=== PATIENT | male | born 1940 | race Caucasian/White ===

== ENCOUNTER → 2016-11-14 | Outpatient (REF) | payer MEDICARE ==
[~2016-11-14] MED LIST: AUGM875T27 PO; AZIT500T2 PO; DIGO0.12 PO; GLYB/METFORM PO; HUMA100I5 SC; LEVEINJ SC; LISI-538 PO; METO-207 PO; SIMV10TA2 PO; WARF-23 PO; ZOMETA IV
[2016-11-14 18:44] LABS: INR 4.21
== END ==
LOC: M LABDRAWC 17:20
PROVIDERS: ATTEND Internal Medicine Cardiovascular Disease
DX: Z51.81 Encounter for therapeutic drug level monitoring (principal); Z79.01 Long term (current) use of anticoagulants

== ENCOUNTER → 2016-11-28 | Outpatient (REF) | payer MEDICARE ==
[2016-11-28 17:23] LABS: INR 3.85
== END ==
LOC: M LABDRAWC 16:32
PROVIDERS: ATTEND Internal Medicine Cardiovascular Disease
DX: Z51.81 Encounter for therapeutic drug level monitoring (principal); Z79.01 Long term (current) use of anticoagulants; I48.2 Chronic atrial fibrillation

== ENCOUNTER → 2016-12-13 | Outpatient (REF) | payer MEDICARE ==
[2016-12-13 19:14] LABS: INR 2.33
== END ==
LOC: M LABDRAWC 16:31
PROVIDERS: ATTEND Internal Medicine Cardiovascular Disease
DX: I48.2 Chronic atrial fibrillation (principal)

== ENCOUNTER → 2017-01-06 | Outpatient (REF) | payer MEDICARE ==
[2017-01-06 17:53] LABS: BASO % 0.4 % (0.0-1.0); EOS # 0.2 K/mm3 (0.0-0.50); EOS % 4.7 % (0.0-3.0); LARGE UNSTAINED CELL # 0.1 K/mm3 (0.0-0.4); LARGE UNSTAINED CELL % 1.9 % (0.0-4.0); LYMPH # 0.5 K/mm3 (1.5-4.5); MEAN CORPUSCULAR HEMOGLOBIN 27.5 pg (27.0-33.0); MEAN CORPUSCULAR HGB CONC 30.3 g/dl (32.0-36.5); MEAN CORPUSCULAR VOLUME 90.9 fl (80.0-96.0); MONO # 0.3 K/mm3 (0.0-0.8); MONO % 7.7 % (0.0-5.0); NEUTROPHILS % 73.3 % (36.0-66.0); PLATELET COUNT, AUTOMATED 138 k/mm3 (150-450); RED CELL DISTRIBUTION WIDTH 16.2 % (11.5-14.5); WHITE BLOOD COUNT 4.1 K/mm3 (4.0-10.0)
[2017-01-06 18:04] LABS: ALBUMIN 3.5 GM/DL (3.2-5.2); ALBUMIN/GLOBULIN RATIO 0.95 (1.00-1.93); ALKALINE PHOSPHATASE 140 U/L (45-117); ALT/SGPT 18 U/L (12-78); ANION GAP 6 MEQ/L (8-16); AST/SGOT 19 U/L (15-37); BLOOD UREA NITROGEN 29 MG/DL (7-18); CARBON DIOXIDE LEVEL 28 MEQ/L (21-32); CHLORIDE LEVEL 108 MEQ/L (98-107); CREATININE FOR GFR 1.39 MG/DL (0.70-1.30); GLOMERULAR FILTRATION RATE 52.7 (>42); GLUCOSE, FASTING 212 MG/DL (83-110); POTASSIUM SERUM 4.3 MEQ/L (3.5-5.1); SODIUM LEVEL 142 MEQ/L (136-145); TOTAL PROTEIN 7.2 GM/DL (6.4-8.2)
[2017-01-08 07:42] LABS: ALBUMIN 3.66 GM/DL (3.29-5.55); ALBUMIN % 50.8 % (55.8-66.1); GAMMA GLOBULIN % 20.7 % (11.1-18.8)
== END ==
LOC: M LABDRAWC 16:28
PROVIDERS: ATTEND Internal Medicine Medical Oncology
DX: C90.00 Multiple myeloma not having achieved remission (principal); Z51.81 Encounter for therapeutic drug level monitoring; Z79.01 Long term (current) use of anticoagulants

== ENCOUNTER → 2017-01-06 | Outpatient (REF) | payer MEDICARE ==
[2017-01-06 17:40] LABS: INR 2.25
== END ==
LOC: M LABDRAWC 16:26
PROVIDERS: ATTEND Internal Medicine Cardiovascular Disease
DX: Z51.81 Encounter for therapeutic drug level monitoring (principal); Z79.01 Long term (current) use of anticoagulants

== ENCOUNTER → 2017-02-03 | Outpatient (REF) | payer MEDICARE ==
[2017-02-03 18:13] LABS: INR 2.3
== END ==
LOC: M LABDRAWC 16:31
PROVIDERS: ATTEND Internal Medicine Cardiovascular Disease
DX: I48.2 Chronic atrial fibrillation (principal)

== ENCOUNTER → 2017-03-04 | Outpatient (REF) | payer MEDICARE ==
[2017-03-04 18:02] LABS: INR 1.95
== END ==
LOC: M LABDRAWC 16:11
PROVIDERS: ATTEND Internal Medicine Cardiovascular Disease
DX: I48.2 Chronic atrial fibrillation (principal)

== ENCOUNTER → 2017-04-08 | Outpatient (REF) | payer MEDICARE ==
[2017-04-08 17:23] LABS: INR 1.58
== END ==
LOC: M LABDRAWC 16:26
PROVIDERS: ATTEND Internal Medicine Cardiovascular Disease
DX: I48.2 Chronic atrial fibrillation (principal)

== ENCOUNTER → 2017-04-17 | Outpatient (CLI) | payer MEDICARE ==
[2017-04-17 14:27] LABS: ALBUMIN 3.3 GM/DL (3.2-5.2); CALCIUM LEVEL 9.8 MG/DL (8.8-10.2); CREATININE FOR GFR 1.64 MG/DL (0.70-1.30); GLOMERULAR FILTRATION RATE 43.6 (>42); PHOSPHORUS LEVEL 3.1 MG/DL (2.5-4.9); POTASSIUM SERUM 4.6 MEQ/L (3.5-5.1)
== END ==
LOC: M WUC 08:47
PROVIDERS: ATTEND Physician Assistant
DX: N18.9 Chronic kidney disease, unspecified (principal)

== ENCOUNTER → 2017-04-23 | Outpatient (REF) | payer MEDICARE ==
[~2017-04-23] MED LIST changes: -AUGM875T27 PO; +AUGM875T28 PO; +BUME1TAB29 PO; +FERR325T3 PO; +FLOM5CAP PO; +INSUDET SC; -METO-207 PO; +METO1TAB7 PO; +POTA20TA PO; +VALS160T3 PO; +VITA200016 PO; +VITMTA PO
[2017-04-23 19:19] LABS: INR 2.05
== END ==
LOC: M LABWUC 16:43
PROVIDERS: ATTEND Internal Medicine Cardiovascular Disease
DX: I48.2 Chronic atrial fibrillation (principal)

== ENCOUNTER → 2017-05-26 | Outpatient (REF) | payer MEDICARE ==
[2017-05-26 17:13] LABS: INR 2.28
== END ==
LOC: M LABDRAWC 16:28
PROVIDERS: ATTEND Internal Medicine Cardiovascular Disease
DX: I48.2 Chronic atrial fibrillation (principal)

== ENCOUNTER → 2017-05-28 | Outpatient (REF) | payer MEDICARE ==
[2017-05-28 17:55] LABS: ALBUMIN 3.5 GM/DL (3.2-5.2); BILIRUBIN,TOTAL 0.9 MG/DL (0.2-1.0); CALCIUM LEVEL 9.7 MG/DL (8.8-10.2); CREATININE FOR GFR 1.53 MG/DL (0.70-1.30); GLOMERULAR FILTRATION RATE 47.2 (>42); POTASSIUM SERUM 4.5 MEQ/L (3.5-5.1)
== END ==
LOC: M SFHCCLAY 08:04
PROVIDERS: ATTEND Family Medicine
DX: I10 Essential (primary) hypertension (principal)
CPT/HCPCS: 80053; 80061; G0463

== ENCOUNTER → 2017-07-02 | Outpatient (REF) | payer MEDICARE ==
[~2017-07-02] MED LIST changes: +BUME1TAB27 PO; +NYST10PW TOP; +PEG1POW PO
[2017-07-02 18:17] LABS: INR 2.05
== END ==
LOC: M LABDRAWC 17:01
PROVIDERS: ATTEND Internal Medicine Cardiovascular Disease
DX: I10 Essential (primary) hypertension (principal); E78.2 Mixed hyperlipidemia; I48.0 Paroxysmal atrial fibrillation; R01.1 Cardiac murmur, unspecified; E11.9 Type 2 diabetes mellitus without complications

== ENCOUNTER → 2017-07-10 | Outpatient (REF) | payer MEDICARE ==
[2017-07-10 17:32] LABS: ALBUMIN 3.2 GM/DL (3.2-5.2); ALBUMIN/GLOBULIN RATIO 0.89 (1.00-1.93); ALKALINE PHOSPHATASE 114 U/L (45-117); ALT/SGPT 21 U/L (12-78); ANION GAP 10 MEQ/L (8-16); AST/SGOT 19 U/L (15-37); BILIRUBIN,TOTAL 0.8 MG/DL (0.2-1.0); BLOOD UREA NITROGEN 32 MG/DL (7-18); CALCIUM LEVEL 9.4 MG/DL (8.8-10.2); CARBON DIOXIDE LEVEL 27 MEQ/L (21-32); CHLORIDE LEVEL 108 MEQ/L (98-107); CREATININE FOR GFR 1.56 MG/DL (0.70-1.30); GLOMERULAR FILTRATION RATE 46.2 (>42); GLUCOSE, FASTING 163 MG/DL (83-110); IMMUNOGLOBULIN G 1470 MG/DL (681-1648); IMMUNOGLOBULIN M 119 MG/DL (40-230); POTASSIUM SERUM 4.6 MEQ/L (3.5-5.1); SODIUM LEVEL 145 MEQ/L (136-145); TOTAL PROTEIN 6.8 GM/DL (6.4-8.2)
[2017-07-10 18:19] LABS: BASO % 0.5 % (0.0-1.0); EOS # 0.2 K/mm3 (0.0-0.50); EOS % 3.2 % (0.0-3.0); LARGE UNSTAINED CELL # 0.1 K/mm3 (0.0-0.4); LARGE UNSTAINED CELL % 1.7 % (0.0-4.0); LYMPH # 0.5 K/mm3 (1.5-4.5); LYMPH % 7.4 % (24.0-44.0); MEAN CORPUSCULAR HEMOGLOBIN 28.4 pg (27.0-33.0); MEAN CORPUSCULAR VOLUME 91.5 fl (80.0-96.0); MONO # 0.6 K/mm3 (0.0-0.8); MONO % 8.7 % (0.0-5.0); NEUTROPHILS % 78.5 % (36.0-66.0); PLATELET COUNT, AUTOMATED 192 k/mm3 (150-450); RED CELL DISTRIBUTION WIDTH 15.9 % (11.5-14.5); WHITE BLOOD COUNT 6.3 K/mm3 (4.0-10.0)
[2017-07-13 00:06] LABS: FREE KAPPA LIGHT CHAINS SERUM 51.9 mg/L (3.3-19.4); FREE LAMBDA LIGHT CHAINS SERUM 54.2 mg/L (5.7-26.3); KAPPA/LAMBDA RATIO SERUM 0.96 (0.26-1.65)
[2017-07-14 12:01] LABS: ALBUMIN 3.39 GM/DL (3.29-5.55); ALBUMIN % 49.8 % (55.8-66.1)
== END ==
LOC: M LAB REF 11:44
PROVIDERS: ATTEND Internal Medicine Medical Oncology
DX: C90.00 Multiple myeloma not having achieved remission (principal)

== ENCOUNTER 2017-07-21 19:01 | Inpatient (IN) | payer MEDICARE ==
[~2017-07-21] VITALS: Ht 177.8 cm; Wt 122.0 kg
[~2017-07-21 19:01] MED LIST changes: -BUME1TAB27 PO; -BUME1TAB29 PO; -FERR325T3 PO; -FLOM5CAP PO; -INSUDET SC; -NYST10PW TOP; -PEG1POW PO; -POTA20TA PO; -VALS160T3 PO; -VITA200016 PO; -VITMTA PO
[2017-07-21] MEDS: LEVEMIR (INSULIN DETEMIR) 1 UNITS/0.01ML SC SCH (21:00)
[2017-07-21] MEDS ORDERED: NS 500 ML IV ONE (21:45)
[2017-07-21 22:11] LABS: MEAN CORPUSCULAR HEMOGLOBIN 27.6 pg (27.0-33.0); MEAN CORPUSCULAR HGB CONC 30.5 g/dl (32.0-36.5); MEAN CORPUSCULAR VOLUME 90.4 fl (80.0-96.0); PLATELET COUNT, AUTOMATED 193 10^3/uL (150-450); RED CELL DISTRIBUTION WIDTH 16.6 % (11.5-14.5); WHITE BLOOD COUNT 8.4 10^3/uL (4.0-10.0)
[2017-07-21 22:15] LABS: ADD MANUAL DIFFER YES; DIFF SLIDE NUMBER 341
[2017-07-21 22:22] LABS: INR 2.14
--- NOTE | 2017-07-21 22:40 | REPUSA ---
Clinical history: Pain, swelling. Findings: The left common femoral, superficial femoral, popliteal, and other deep venous structures c ompress normally and demonstrate normal color Doppler flow. Normal venous waveforms with augmentation are seen. Impression: No evidence of deep vein thrombosis in the left femoral popliteal venous system.
[2017-07-21 22:44] LABS: ALBUMIN 3.1 GM/DL (3.2-5.2); ALBUMIN/GLOBULIN RATIO 0.76 (1.00-1.93); BILIRUBIN,DIRECT 0.5 MG/DL (0.0-0.2); BILIRUBIN,TOTAL 0.9 MG/DL (0.2-1.0); CALCIUM LEVEL 8.9 MG/DL (8.8-10.2); CREATININE FOR GFR 1.41 MG/DL (0.70-1.30); GLOMERULAR FILTRATION RATE 51.9 (>42); POTASSIUM SERUM 4.2 MEQ/L (3.5-5.1); TOTAL PROTEIN 7.2 GM/DL (6.4-8.2)
[2017-07-21] MEDS ORDERED: CEFTAROLINE FOSAMIL 600 MG in D5W MINI-BAG PLUS 50 ML IV ONE (23:00)
[2017-07-21 23:09] LABS: ANISOCYTOSIS 1+; BANDS 1 % (< 11); BASOPHILS 1 % (0-4); EOSINOPHILS 2 % (0-5)
[2017-07-21 23:11] LABS: ERYTHROCYTE SEDIMENTATION RATE 63 mm/hr (0-20)
[2017-07-22] MEDS ORDERED: VALS160T3 PO (00:09)
[2017-07-22] MEDS ORDERED: WARF-23 PO (00:09)
[2017-07-22] MEDS ORDERED: INSUDET SC (00:09)
[2017-07-22] MEDS ORDERED: VITA200016 PO (00:09)
[2017-07-22] MEDS ORDERED: VITMTA PO (00:09)
[2017-07-22] MEDS ORDERED: ACETAMINOPHEN 500 MG TAB PO PRN (00:45)
[2017-07-22] MEDS ORDERED: GLUCOSE 4 GM CHEW TABLET PO PRN (00:45)
[2017-07-22] MEDS ORDERED: ONDANSETRON 4MG/2ML VIAL (J2405) IV PRN (00:45)
[2017-07-22] MEDS ORDERED: GLUCAGON FOR INJ 1 MG VIAL (J1610) SC PRN (00:45)
[2017-07-22] MEDS ORDERED: DEXTROSE 50% 50 ML SYRINGE IV PRN (00:45)
[2017-07-22 01:12] VITALS: BP 137/71
[2017-07-22] MEDS: SIMVASTATIN 10 MG TAB PO SCH ×2 (02:06→20:31)
[2017-07-22] MEDS: SENOKOT S TAB PO SCH ×3 (02:06→20:34)
[2017-07-22] MEDS: metroNIDAZOLE 500 MG in APPROPRIATE DILUENT 1 EA IV SCH ×3 (02:07→18:33)
[2017-07-22 06:00] VITALS: BP 117/70
[2017-07-22 07:12] LABS: DIGOXIN LEVEL 0.9 NG/ML (0.5-2.0); PERCENT SATURATION 7.8 % (19.7-50.0)
--- NOTE | 2017-07-22 08:15 | ECGEPIP ---
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
--- NOTE | 2017-07-22 08:51 | REP ---
Portable chest, single AP view, patient sitting, 11:46 p.m.: Comparison is 08/31/2014. Lung cornell are clear. Cardiac size appears enlarged. The nani, mediastinum, bony thorax are unremarkable. Impression: Cardiomegaly. Lung cornell are clear. Signed by Bryson Gentile MD 07/22/2017 08:42 A
--- NOTE | 2017-07-22 09:08 | REP ---
Left toes four views: There are no lytic, blastic or destructive skeletal changes. There is questionably a fracture at the base of the great toe distal phalange medially on one-view. This should be correlated with clinical point tenderness. There is no dislocation. 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 Signed by Bryson Gentile MD 07/22/2017 09:00 A
[2017-07-22] MEDS: amLODIPine 10 MG TAB PO SCH (09:56)
[2017-07-22] MEDS: WARFARIN SOD 5 MG TAB PO SCH (09:56)
[2017-07-22] MEDS: DIGOXIN 0.125 MG TAB PO SCH (09:57)
[2017-07-22] MEDS: METOPROLOL SUCC (TopROL XL) 50MG **XL** TAB PO SCH (09:57)
[2017-07-22] MEDS: LEVEMIR (INSULIN DETEMIR) 1 UNITS/0.01ML SC SCH ×2 (09:59→20:33)
[2017-07-22] MEDS: HumaLOG INSULIN (NovoLOG) PER UNIT SC SCH ×3 (09:59→18:34)
[2017-07-22] MEDS: CEFTAROLINE FOSAMIL 400 MG in D5W MINI-BAG PLUS 50 ML IV SCH ×2 (09:59→22:57)
[2017-07-22 10:48] LABS: MEAN CORPUSCULAR HEMOGLOBIN 27.8 pg (27.0-33.0); MEAN CORPUSCULAR VOLUME 89.6 fl (80.0-96.0); RED CELL DISTRIBUTION WIDTH 16.7 % (11.5-14.5)
[2017-07-22 10:59] LABS: FOLATE 20.4 NG/ML (>5.4)
[2017-07-22 11:06] LABS: INR 2.21
[2017-07-22 11:13] LABS: CALCIUM LEVEL 9.1 MG/DL (8.8-10.2); CREATININE FOR GFR 1.41 MG/DL (0.70-1.30); GLOMERULAR FILTRATION RATE 51.9 (>42); POTASSIUM SERUM 4.3 MEQ/L (3.5-5.1)
--- NOTE | 2017-07-22 11:53 | IPN ---
DATE: 07/22/2017 76-year-old gentleman admitted last evening for what appears to be gangrenous involvement of the left greater toe with poor vascular circulation. He is resting comfortably. We are currently waiting for Dr. Luo and Dr. Vicente to see the patient. He continues on IV antibiotics and no specific complaints. No reported fevers, chills, nausea or vomiting. OBJECTIVE: Temperature is 98.6, pulse 67 and regular, respiratory rate 18, BP 117/70, and SPO2 is 95% on room air. General: The patient appears to be in no acute distress. Is alert, oriented, pleasant. HEENT: Unremarkable. Lungs: Clear. Heart: Regular rate and rhythm. Abdomen: Soft. Extremities: He does have venous stasis changes in the lower extremities. The area is small, less than centimeter, a superficial ulceration on the lower medial portion of the left robbins. The left greater toe does show a larger ulceration with what appears to be gangrenous changes, malodor and pulses are weak. LABORATORY DATA: White count is 8.0, hemoglobin 9.4, platelets 186,000. Sodium 140, potassium 4.3, chloride 107, bicarb 26, anion gap 7, BUN is 28, creatinine 1.41, glucose 220, INR is 2.21. Blood cultures pending. Gram stain is pending of the wound culture. ASSESSMENT/PLAN: Please note that there is no H P available for me today. 1. Left greater toe gangrene. Will continue with IV antibiotics which include Teflaro and Flagyl. Appreciate consult from vascular surgery and await culture results. I did have a jeny discussion with the patient and family members that I do suspect that he has some underlying peripheral vascular disease and we would anticipate that vascular surgery may need further evaluation of his vasculopathy. 2. Diabetes. Continue with sliding scale insulin. Consistent carb diet. 3. Hypertension. Continue with blood pressure medication. Will continue to monitor. 4. Hyperlipidemia. Continue on simvastatin. 5. History of paroxysmal atrial fibrillation. He is rate controlled on metoprolol and anticoagulated with Coumadin. 6. Deep vein thrombosis (DVT) prophylaxis. He is at goal INR with his Coumadin. DISPOSITION: Anticipate that he will be here greater than two midnights.
[2017-07-22 14:00] VITALS: BP 147/65
[2017-07-22] MEDS ORDERED: HumaLOG INSULIN (NovoLOG) PER UNIT SC ONE (19:00)
--- NOTE | 2017-07-22 20:47 | HPE ---
DATE OF ADMISSION: 07/22/2017 PRIMARY CARE PROVIDER: Dr. Cooper. FINGERPRINT TECHNICIAN: Dr. Souza. BRACELET FORMER: Dr. Luo. WARHEAD MAINTENANCE SPECIALIST: Dr. Cordero. CHIEF COMPLAINT: The patient presented to the hospital for discoloration of the left big toe with pain in the left leg for the past four days. PAST MEDICAL HISTORY: 1. Diabetes. 2. Chronic kidney disease (CKD) stage III. 3. Atrial fibrillation (A-fib) on Coumadin. 4. Possible peripheral vascular disease. 5. Chronic bilateral venostasis. 6. Hypertension. 7. Chronic anemia. 8. History of multiple myeloma status post stem cell transplant 11 years ago. 9. History of shingles. 10. Heart murmur. 11. Hypercholesterolemia. 12. History of deep venous thrombosis (DVT) more than 40 years ago. 13. Recurrent superficial stasis ulcers of both feet. HISTORY OF PRESENT ILLNESS: This a 76-year-old male with the above past medical history who had a bag spongy nail of his left big toe which fell off five days ago and he noted black discoloration of the nailbed with surrounding redness of the foot and some pain of the foot. The area was foul smelling with some discharge and also some thigh pain for five days so he came to the emergency room. In the emergency department (ED) the patient was noticed to have gangrene of the left big toe with surrounding secondary infection and cellulitis. The patient had an ultrasound of the left system done which did not show any DVT. ED consulted Dr. Vicente and he has agreed to see the patient in consultation and possibly arrange for an angiogram in the next few days. The patient was started on ceftaroline in the ED and subsequently admitted to the hospitalist service for left toe gangrene and cellulitis. PAST SURGICAL HISTORY: Port placement and removal for stem cell transplant. SOCIAL HISTORY: The patient is a nonsmoker, does not use alcohol or recreational drugs. ALLERGIES: No known drug allergies. HOME MEDICATIONS: - Digoxin 0.125 mg by mouth daily - Levemir insulin 16 units twice a daily - Lispro insulin as a sliding scale - metoprolol succinate 50 mg by mouth daily - multivitamins one tablet by mouth daily - simvastatin 10 mg at bedtime - valsartan hydrochlorothiazide 160/25 mg one tablet by mouth daily - vitamin D 2000 units by mouth daily - Coumadin 5 mg on Friday and , 2.5 mg on Friday, Friday, Friday, Friday and Friday REVIEW OF SYSTEMS: The patient denies any fever or chills. Denies any chest pain, shortness of breath or cough. Denies any abdominal pain, nausea, vomiting or diarrhea. The patient does state that he has a known heart murmur and his bee raiser follows it. The patient denies any trauma to the left foot. He does say that he has chronic dry skin of both the legs and intermittently he would develop superficial ulcers which would heal up and then reappear again. PHYSICAL EXAMINATION: VITAL SIGNS: Temperature 99.6, pulse 76, respiratory rate 16, blood pressure 154/70, pulse oximetry 97% on room air. GENERAL: The patient is awake, alert and oriented times three, laying down in bed in no acute distress. HEENT: Normocephalic atraumatic. Moist mucous membranes. Anicteric eyes. CHEST: Clear to auscultation. CARDIOVASCULAR: S1, S2 regular. There is a systolic murmur present. ABDOMEN: Soft, nontender, bowel sounds present. EXTREMITIES: Bilateral chronic venostasis. There is superficial venostasis ulcer on the left robbins. There is gangrenous changes of the left big toe in the nail bed, as well as surrounding inflammation and cellulitis with foul smell. LABORATORY DATA: WBC 8.4, hemoglobin 9.8, platelets 193. Sodium 140, potassium 4.2, chloride 106, bicarbonate 25, BUN27, creatinine 1.4, glucose 129, calcium 8.9, liver function tests are normal. INR 2.1. Blood cultures and wound culture have been sent. ASSESSMENT AND PLAN: This is a 76-year-old male admitted for left toe gangrene and cellulitis. PLAN: 1. Left toe gangrene and cellulitis. Will start the patient on ceftaroline, will also give metronidazole for anaerobic coverage. Dr. Vicente has been consulted from the emergency department (ED). The patient will need an angiogram to assess blood circulation of the lower extremity as well as evaluation of the left toe gangrene. 2. Hypertension. The patient is on valsartan hydrochlorothiazide and metoprolol at home. Will continue on metoprolol; however, will hold the valsartan and hydrochlorothiazide in view of possible angiogram to minimize renal injury from contrast. Will start the patient on amlodipine in its place. 3. Atrial fibrillation. The patient is in sinus rhythm at this point, rate is controlled with metoprolol and digoxin. Will continue, the patient has a therapeutic INR. Will continue with Coumadin. 4. Diabetes. Will continue with Levemir and Lispro insulin. 5. Hypercholesterolemia. Will continue with home statin. 6. Deep venous thrombosis (DVT) prophylaxis. The patient is on Coumadin. 7. Chronic kidney disease (CKD). The patient's creatinine is at baseline at this point. Will hold hydrochlorothiazide and valsartan in view of possible angiogram in the immediate future. I have explained the patient regarding possibility of contrast nephropathy after administration of dye. Will consult Dr. Luo. 8. History of multiple myeloma. Status post stem cell transplant in 2010, follows with Dr. Glass. He was recently seen in April and was said that the patient continues to be in remission. 9. Chronic anemia. This is due to anemia of chronic disease; however will check iron studies and vitamin B12 and folic acid levels.
[2017-07-22] MEDS ORDERED: HumaLOG INSULIN (NovoLOG) PER UNIT SC SCH (21:00)
--- NOTE | 2017-07-22 21:13 | CR ---
DATE OF CONSULTATION: 07/22/2017 CONSULTATION REPORT FOR: Francis Elder DO REASON FOR CONSULTATION: Left big toe gangrene and need for angiogram in this gentleman with chronic kidney disease. HISTORY OF PRESENT ILLNESS: Mr. Segal is a 76-year-old gentleman who is known to me from prior followup in the office. He has known history of insulin-dependent diabetes, hypertension, atrial fibrillation, prior history of DVT and multiple myeloma which has been in remission. He also has stage III of chronic kidney disease at baseline. He developed gangrenous changes in his left big toe due to which he is admitted to [facility]. There is a consideration for angiogram due to possible embolic phenomenon. Nephrology consultation was requested and the patient is seen this morning. PAST MEDICAL AND SURGICAL HISTORY: Significant for: 1. History of multiple myeloma which has been in remission for years. 2. Insulin-dependent diabetes. 3. Hypertension. 4. Hypercholesterolemia. 5. Atrial fibrillation. 6. History of prior DVT about 40 years ago. 7. History of stage III of chronic kidney disease. Past surgical history is unremarkable. MEDICATIONS: Current medications include: - Coumadin 2.5 mg daily - Humalog insulin per sliding scale - digoxin 0.125 mg daily - ceftaroline 400 mg every 12 hours - metoprolol XL 50 mg daily - amlodipine 10 mg daily - metronidazole 500 mg every 8 hours - Tylenol as needed for pain - Zofran 4 mg as needed for nausea - Senokot-S one tablet twice a day - Levemir insulin 16 units daily - Zocor 10 mg at bedtime ALLERGIES: The patient has no known drug allergies. PERSONAL AND SOCIAL HISTORY: The patient is and lives with his family. He does not smoke or drink. There is no history of drug use. FAMILY HISTORY: Is noncontributory. There is no family history for significant kidney problems. REVIEW OF SYSTEMS: The patient denies any fever or chills. His left big toenail was lost last week and following that his toe turned black. He did not have any trauma. He denies any fever or chills. Ears, nose and throat are unremarkable. Cardiovascular system negative for dyspnea or chest pain. He does have history of anticoagulation for atrial fibrillation. Respiratory system negative for cough or hemoptysis. GI system negative for nausea, vomiting or diarrhea. system is significant for stage III of chronic kidney disease. The patient denies any dysuria or hematuria. Musculoskeletal system is significant for gangrenous left big toe. The patient has history of DVT in remote past. Psychosocial system negative for depression, anxiety. Neurological system is negative for seizures or stroke. Endocrine system is significant for type 2 diabetes. Hematological system is significant for prior history of multiple myeloma which has been in remission. PHYSICAL EXAMINATION: The patient is awake and alert at the time of my visit. Temperature 98.6 degrees Fahrenheit, heart rate 68 per minute and respiratory rate 18 per minute. Blood pressure 117/70 mmHg and oxygen saturation 95% on room air. Head is atraumatic. Neck is supple and without JVD or thyroid enlargement. Ears, nose and throat are unremarkable. Pupils equal and reactive to light and sclerae is anicteric. Heart sounds are irregular due to atrial fibrillation. Lungs sound clear to auscultation. Abdomen soft and nontender and without a palpable organomegaly. Extremities have chronic hyperpigmentation changes on the lower extremities. There is no cyanosis or clubbing. Left big toe has foul-smelling blackish necrotic area. The nail is missing. Neurologically the patient is awake, alert and oriented times three. LABORATORY DATA: His WBC count is 8.0, hemoglobin 9.4 and hematocrit 30.3. Platelets 186. Sodium 140 and potassium 4.3. BUN 28 and creatinine 1.41. Glucose 220, calcium 9.1. Iron level 29 and saturation 7.8%. IMAGING STUDIES: The patient had a chest x-ray which showed cardiomegaly and clear lung cornell. He had a vascular ultrasound of left lower extremity which did not show any evidence of DVT. PROBLEMS: 1. Chronic kidney disease. The patient has stage III of chronic kidney disease at baseline. At present his kidney function is stable at about baseline and his electrolytes are within normal range. 2. Gangrenous toe and need for angiogram. The patient is currently not on HYACINTH inhibitor, ARB or diuretics. His volume status is reasonable. I recommend to give him at least 500 mL of normal saline prior to angiogram and then follow his renal function in 24 hours. I have discussed with the patient and his family about mildly increased risk for dye induced acute renal failure. I feel that the patient is likely to do fairly well. 3. Iron deficiency anemia. The patient has been on chronic anticoagulation and has iron deficiency anemia. I suggest to continue with oral iron supplement at this point. I thank you for involving me in the care of Mr. Segal. I will follow him along with you.
[2017-07-22 22:00] VITALS: BP 141/62
[2017-07-23] MEDS: metroNIDAZOLE 500 MG in APPROPRIATE DILUENT 1 EA IV SCH ×3 (02:14→17:25)
[2017-07-23 06:00] VITALS: BP 127/58
[2017-07-23 06:10] LABS: MEAN CORPUSCULAR HEMOGLOBIN 27.7 pg (27.0-33.0); MEAN CORPUSCULAR HGB CONC 31.3 g/dl (32.0-36.5); MEAN CORPUSCULAR VOLUME 88.7 fl (80.0-96.0); PLATELET COUNT, AUTOMATED 179 10^3/uL (150-450); RED CELL DISTRIBUTION WIDTH 16.7 % (11.5-14.5); WHITE BLOOD COUNT 7.6 10^3/uL (4.0-10.0)
[2017-07-23 06:15] LABS: ADD MANUAL DIFFER YES; DIFF SLIDE NUMBER 36
[2017-07-23 06:22] LABS: INR 2.42
[2017-07-23 06:38] LABS: CALCIUM LEVEL 8.7 MG/DL (8.8-10.2); CREATININE FOR GFR 1.51 MG/DL (0.70-1.30); GLOMERULAR FILTRATION RATE 47.9 (>42); POTASSIUM SERUM 4.2 MEQ/L (3.5-5.1)
[2017-07-23 07:03] LABS: ANISOCYTOSIS 1+; BANDS 1 % (< 11); BASOPHILS 2 % (0-4); EOSINOPHILS 4 % (0-5)
[2017-07-23] MEDS ORDERED: HumaLOG INSULIN (NovoLOG) PER UNIT SC SCH (07:30)
[2017-07-23] MEDS: HumaLOG INSULIN (NovoLOG) PER UNIT SC SCH ×3 (08:39→17:26)
[2017-07-23] MEDS: METOPROLOL SUCC (TopROL XL) 50MG **XL** TAB PO SCH (08:41)
[2017-07-23] MEDS: amLODIPine 10 MG TAB PO SCH (08:41)
[2017-07-23] MEDS: SENOKOT S TAB PO SCH ×2 (08:41→21:32)
[2017-07-23] MEDS: DIGOXIN 0.125 MG TAB PO SCH (08:43)
[2017-07-23] MEDS: LEVEMIR (INSULIN DETEMIR) 1 UNITS/0.01ML SC SCH ×2 (08:46→21:31)
[2017-07-23] MEDS ORDERED: WARFARIN SOD 5 MG TAB PO SCH (09:00)
[2017-07-23] MEDS: KCL 20MEQ in NS 1000ML 1,000 ML IV SCH ×2 (11:07→22:40)
[2017-07-23] MEDS: FERROUS SULFATE 325MG TAB PO SCH ×2 (12:15→21:30)
[2017-07-23] MEDS: CEFTAROLINE FOSAMIL 400 MG in D5W MINI-BAG PLUS 50 ML IV SCH ×2 (12:16→22:40)
[2017-07-23 14:00] VITALS: BP 148/66
--- NOTE | 2017-07-23 15:58 | REP ---
LEFT LOWER EXTREMITY DUPLEX DOPPLER ARTERIAL ULTRASOUND: Real-time ultrasound evaluation and duplex Doppler interrogation of the left lower extremity arterial system is performed. Significant plaquing is seen throughout the left lower extremity arterial system. Luminal narrowing visually at the origin of the left superficial femoral artery is approximately 50% with the lumen decreasing in diameter from 8 mm to 4 mm. Triphasic waveforms are seen proximal to this level with monophasic waveforms distal to this level. Peak systolic velocity of the left common femoral artery is 100 cm/s, profunda 170 cm/s, and proximal superficial femoral artery 64 cm/s. Distal superficial femoral artery demonstrates increased velocity at 103 cm/s with significant plaque and narrowing. Severe plaquing and narrowing is seen of the popliteal artery. Peak systolic velocity 56 cm/s. There appears to be a collateral artery along the origin of the anterior tibial artery. Severe plaquing and narrowing is seen of the distal anterior tibial artery with very slow flow. Peak systolic velocity proximally in the anterior tibial artery is 35 cm/s and distally 8 cm/s. Distal posterior tibial artery is not visualized. It is very thin proximally with a peak systolic velocity of 38 cm/s. Incidental note is made of multiple dilated venous structures in the ankle near a skin ulcer raising the possibility of venous stasis pathology. Signed by Bryson Negro MD 07/23/2017 05:09 P
--- NOTE | 2017-07-23 16:50 | IPN ---
DATE: 07/23/2017 Mr. Segal is seen this morning on his bedside. He is feeling well and denies any nausea, vomiting, dyspnea or chest pain. He still has some discomfort in his left big toe which is ischemic and gangrenous. He remains on IV antibiotics. He has not been seen by Dr. Vicente and is waiting for his visit. PHYSICAL EXAMINATION: Temperature 97.9 degrees Fahrenheit, heart rate 72 per minute and respiratory rate 18 per minute. Blood pressure 127/58 mmHg and oxygen saturation 94% on room air. Head is atraumatic. Neck is supple and without JVD or thyroid enlargement. Ears, nose and throat are unremarkable. Pupils equal and reactive to light and sclerae is anicteric. Heart sounds are irregular in rhythm. Lungs sound clear to auscultation bilaterally. Abdomen is soft and nontender and without a palpable organomegaly. Bowel sounds are normal. Extremities have no cyanosis or clubbing. Left big toe remains necrotic and ischemic. Neurologically he is awake, alert and oriented times three. Today's labs show WBC count 7.6, hemoglobin 8.6 and hematocrit 27.5. Sodium 142 and potassium 4.2. BUN 34 and creatinine 1.5. PROBLEMS: 1. Gangrenous left big toe. The patient is waiting for vascular surgery evaluation. He is likely to require CT angiogram or a digital angiogram. We will start him on IV fluid normal saline 75 mL/hour anticipation for dye study. He remains on antibiotics pending vascular evaluation. 2. Chronic kidney disease. His kidney function is at about baseline. He is not on diuretic, HYACINTH inhibitor or angiotensin receptor berta. He is not on any nephrotoxic medication at present. 3. Anemia. The patient does have anemia of iron deficiency and he is on chronic anticoagulation. We will start him on oral iron supplement, ferrous sulfate 325 mg twice a day. 4. Hypertension. Blood pressure is very well controlled on current medications. He is not on HYACINTH inhibitor or angiotensin receptor berta at this point. We will continue with beta berta and calcium channel berta.
[2017-07-23] MEDS: SIMVASTATIN 10 MG TAB PO SCH (21:30)
[2017-07-23 22:00] VITALS: BP 155/55
[2017-07-24] MEDS: metroNIDAZOLE 500 MG in APPROPRIATE DILUENT 1 EA IV SCH ×3 (02:09→18:29)
[2017-07-24 06:00] VITALS: BP 124/59
[2017-07-24] MEDS: HumaLOG INSULIN (NovoLOG) PER UNIT SC SCH ×4 (07:30→18:30)
[2017-07-24 07:50] LABS: BASO % 0.6 % (0.0-1.0); EOS # 0.3 10^3/uL (0.0-0.50); EOS % 4.2 % (0.0-3.0); IMMATURE GRANULOCYTE % 0.7 % (0-0); MEAN CORPUSCULAR HEMOGLOBIN 27.4 pg (27.0-33.0); MEAN CORPUSCULAR HGB CONC 30.8 g/dl (32.0-36.5); MEAN CORPUSCULAR VOLUME 88.9 fl (80.0-96.0); MONO # 0.7 10^3/uL (0.0-0.8); MONO % 10.3 % (0.0-5.0); NEUTROPHILS # 5.2 10^3/uL (1.8-7.7); NEUTROPHILS % 76.2 % (36.0-66.0); PLATELET COUNT, AUTOMATED 192 10^3/uL (150-450); RED CELL DISTRIBUTION WIDTH 16.5 % (11.5-14.5); WHITE BLOOD COUNT 6.9 10^3/uL (4.0-10.0)
[2017-07-24 08:00] LABS: LYMPH # 0.6 10^3/uL (1.5-4.5)
[2017-07-24] MEDS: WARFARIN SOD 5 MG TAB PO SCH (08:06)
[2017-07-24] MEDS: SENOKOT S TAB PO SCH ×3 (08:06→20:27)
[2017-07-24] MEDS: FERROUS SULFATE 325MG TAB PO SCH ×3 (08:06→20:26)
[2017-07-24] MEDS: LEVEMIR (INSULIN DETEMIR) 1 UNITS/0.01ML SC SCH ×3 (08:07→20:27)
[2017-07-24 08:08] LABS: INR 2.63
[2017-07-24 08:21] LABS: CALCIUM LEVEL 8.7 MG/DL (8.8-10.2); CREATININE FOR GFR 1.51 MG/DL (0.70-1.30); GLOMERULAR FILTRATION RATE 47.9 (>42); POTASSIUM SERUM 4.3 MEQ/L (3.5-5.1)
[2017-07-24] MEDS: METOPROLOL SUCC (TopROL XL) 50MG **XL** TAB PO SCH (08:56)
[2017-07-24] MEDS: DIGOXIN 0.125 MG TAB PO SCH (08:58)
[2017-07-24] MEDS: KCL 20MEQ in NS 1000ML 1,000 ML IV SCH (08:58)
[2017-07-24] MEDS: amLODIPine 10 MG TAB PO SCH (08:58)
[2017-07-24] MEDS ORDERED: INFLUENZA VIRUS VACCINE HIGH DOSE 0.5 ML SYRINGE (90662) IM ONE (09:00)
[2017-07-24] MEDS: CEFTAROLINE FOSAMIL 400 MG in D5W MINI-BAG PLUS 50 ML IV SCH (10:10)
--- NOTE | 2017-07-24 10:28 | IPN ---
DATE: 07/23/2017 SUBJECTIVE: A 76-year-old gentleman seen at bedside, resting comfortably. He is being followed by Dr. Luo. We have requested Dr. Vicente to see the patient as well since he does have some significant lower extremity vascular disease. He denies any overnight issues. No chest pain, nausea, or vomiting. He is tolerating meals. OBJECTIVE: Temperature is 97.9, pulse 72, respiratory rate 18, blood pressure 127/58, SPO2 is 94% on room air. GENERAL: The patient appears to be in no acute distress. HEENT: Unremarkable. LUNGS: Clear. HEART: Regular rate and rhythm. ABDOMEN: Soft. EXTREMITIES: Again, he does have gangrenous changes with the left greater toe and what appears to be vascular insufficiency of the lower extremities. LABORATORY DATA: White count is 7.6, hemoglobin 8.6, platelets are 179,000. Sodium is 142, potassium 4.2, chloride 110, bicarbonate 25, anion gap 7, BUN 34, creatinine 1.51, glucose 158, INR 2.42. ASSESSMENT AND PLAN: 1. Left greater toe gangrene. Continue IV antibiotics, Teflaro and Flagyl. We did have a discussion with his family yesterday regarding vascular insufficiency. Appreciate Dr. Vicente's input. 2. Diabetes. Continue sliding scale insulin, consistent-carbohydrate diet. 3. Hypertension. Continue with blood pressure medications and we will continue to monitor. 4. Hyperlipidemia. Continue statin. 5. Paroxysmal atrial fibrillation. He is rate controlled on metoprolol and anticoagulated with Coumadin. 6. Deep vein thrombosis (DVT) prophylaxis. He is at goal therapy with his international normalized ratio (INR) while on Coumadin. We will check with Dr. Vicente if he needs to hold his Coumadin dose this morning that he normally takes at 09:00 a.m. should he decide to proceed with any procedures. We are anticipating angiogram today which Dr. Luo will go ahead and start him on some normal saline. Appreciate his assistance with fluid management.
--- NOTE | 2017-07-24 11:11 | IPN ---
DATE: 07/24/2017 Mr. Segal is seen this morning on his bedside. He is sitting at the edge of bed getting ready to eat his breakfast. He denies any nausea, vomiting, dyspnea or chest pain. We started intravenous (IV) fluid yesterday in anticipation for angiogram. Dr. Vicente has also been following the patient and is going to schedule angiogram tomorrow due to elevated international normalized ratio (INR) today. On physical exam, temperature 98.8 degrees Fahrenheit, heart rate 80 per minute and respiratory rate 20 per minute. Blood pressure 149/68 mmHg and oxygen saturation 95% on room air. His head is atraumatic. Neck is supple and without jugular venous distention (JVD) or thyroid enlargement. Ears, nose and throat are unremarkable. Heart sounds are irregular in rhythm. Lungs clear to auscultation. Abdomen soft and nontender, and bowel sounds are normal. Extremities have no cyanosis or clubbing. Left big toe is covered with dressing and socks. Neurologically, he is awake, alert and oriented times three. Today's labs show WBC count 6.9, hemoglobin 8.9 and hematocrit 28.9. Sodium was 142 and potassium 4.3. BUN 36 and creatinine 1.51. INR today is 2.63. PROBLEMS: 1. Gangrenous and ischemic left big toe. Patient is going to have angiogram tomorrow and we will continue with IV fluid today. His kidney function is stable at about baseline. Patient does have slightly elevated risk for dye induced acute renal failure. However, at this point, he is in urgent need for angiogram due to gangrenous toe. Patient understands and he is willing to proceed. 2. Chronic renal disease. His kidney function is stable at about baseline. He is currently not on diuretics, angiotensin-converting enzyme (HYACINTH) inhibitor, angiotensin receptor berta or any nephrotoxic medications. 3. Anemia. His anemia is related to iron deficiency. We started oral iron supplement already. At this point, he is stable and not in need for a transfusion.
--- NOTE | 2017-07-24 11:30 | IPNPDOC ---
Date Seen The patient was seen on 07/24/17. Progress Note SUBJECTIVE: 76-year-old gentleman seen at bedside. Resting. Left greater toe looks about same as yesterday. He denies overnight issues. No fevers, chills, nausea, no chest pain, shortness of breath. OBJECTIVE PHYSICAL EXAMINATION: VITAL SIGNS: Please see below. GENERAL: [No acute distress, pleasant] HEENT: [Unremarkable] CARDIOVASCULAR: [Regular rate and rhythm]. RESPIRATORY: [Her to auscultation bilaterally]. ABDOMINAL: [Soft, nondistended, positive bowel sounds, masses. No rebound. EXTREMITIES: [No edema, no calf tenderness] NEUROLOGICAL: [Cranial nerves II through XII grossly intact] LABORATORY DATA: Please see below. DVT prophylaxis ordered?: [Yes] ASSESSMENT AND PLAN: 76-year-old man with left greater toe gangrene and poor vascular circulation PROBLEMS: 1. [Left greater toe gangrene]: [Continue IV antibiotics. Appreciate Dr. Vicente' s input anticipate arteriogram.]. 2. [Diabetes]: [Continued fingersticks before meals at bedtime consistent carb diet and sliding scale coverage]. 3. [Hypertension]: [We'll continue to monitor. No change in current medications] . 4. Hyperlipidemia: Continue statin 5. Paroxysmal atrial fibrillation: Rate controlled on metoprolol and anticoagulated with Coumadin. 6. Chronic renal disease: Renal function appears to be baseline. We'll avoid nephrotoxic drugs. Per say Dr. Luo's input he's receiving IV fluids in anticipation to arteriogram. Repeat renal function studies tomorrow. 7. Iron deficient anemia: Continue with iron supplementation. No immediate need for blood transfusion. 8. DVT prophylaxis: Anticoagulated with Coumadin. We'll continue to monitor INR. DISPOSITION: [Awaiting results of arteriogram for further disposition.]. VS, I&O, 24H, Fishbone Vital Signs/I&O Vital Signs Date Time Temp Pulse Resp B/P (MAP) Pulse Ox O2 Delivery O2 Flow Rate FiO2 07/24/17 08:58 81 07/24/17 08:56 149/68 07/24/17 06:00 98.8 20 95 07/23/17 21:30 Room Air I&O- Last 24 Hours up to 6 AM 07/25/17 05:59 Intake Total 420 ml Output Total 200 ml Balance 220 ml Laboratory Data 24H LABS Laboratory Tests 2 07/23/17 11:32: Bedside Glucose (Misc Panel) 175H 07/23/17 16:32: Bedside Glucose (Misc Panel) 102 07/23/17 20:39: Bedside Glucose (Misc Panel) 82L 07/23/17 22:21: Bedside Glucose (Misc Panel) 99 07/24/17 06:50: Bedside Glucose (Misc Panel) 144H 07/24/17 07:25: White Blood Count 6.9, Red Blood Count 3.25L, Hemoglobin 8.9L, Hematocrit 28.9L , Mean Corpuscular Volume 88.9, Mean Corpuscular Hemoglobin 27.4, Mean Corpuscular Hemoglobin Concent 30.8L, Red Cell Distribution Width 16.5H, Platelet Count 192, Neutrophils (%) (Auto) 76.2H, Lymphocytes (%) (Auto) 8.0L, Monocytes (%) (Auto) 10.3H, Eosinophils (%) (Auto) 4.2H, Basophils (%) (Auto) 0.6, Neutrophils # (Auto) 5.2, Lymphocytes # (Auto) 0.6L, Monocytes # (Auto) 0.7 , Eosinophils # (Auto) 0.3, Basophils # (Auto) 0.0, Immature Granulocyte # (Auto ) 0.1H, Nucleated Red Blood Cells % (auto) 0.0, Prothrombin Time 29.2H, Prothromb Time International Ratio 2.63, Anion Gap 8, Glomerular Filtration Rate 47.9, Blood Urea Nitrogen 36H, Creatinine 1.51H, Sodium Level 142, Potassium Level 4.3, Chloride Level 111H, Carbon Dioxide Level 23, Calcium Level 8.7L CBC/BMP Laboratory Tests 07/24/17 07:25 Red Blood Count 3.25 L, Mean Corpuscular Volume 88.9, Mean Corpuscular Hemoglobin 27.4, Mean Corpuscular Hemoglobin Concent 30.8 L, Red Cell Distribution Width 16.5 H, Neutrophils (%) (Auto) 76.2 H, Lymphocytes (%) (Auto ) 8.0 L, Monocytes (%) (Auto) 10.3 H, Eosinophils (%) (Auto) 4.2 H, Basophils (% ) (Auto) 0.6, Neutrophils # (Auto) 5.2, Lymphocytes # (Auto) 0.6 L, Monocytes # (Auto) 0.7, Eosinophils # (Auto) 0.3, Basophils # (Auto) 0.0, Calcium Level 8.7 L Microbiology Microbiology 07/21/17 Blood Culture - Preliminary, Resulted No Growth after 48 hours. All Specime... 07/21/17 Blood Culture - Preliminary, Resulted No Growth after 48 hours. All Specime... 07/21/17 Gram Stain - Final, Resulted 07/21/17 Wound Culture - Preliminary, Resulted Streptococcus Group G Corynebacterium Species SEGUN HINOJOSA DO Jul 24, 2017 11:30
[2017-07-24 14:00] VITALS: BP 132/63
[2017-07-24] MEDS: SIMVASTATIN 10 MG TAB PO SCH (20:27)
[2017-07-24 22:00] VITALS: BP 128/64
[2017-07-24] MEDS ORDERED: PHYTONADIONE 5 MG TAB PO ONE (22:30)
--- NOTE | 2017-07-24 22:32 | IPNPDOC ---
Date Seen The patient was seen on 07/24/17. Progress Note SUBJECTIVE: Patient is without complaints. OBJECTIVE PHYSICAL EXAMINATION: VITAL SIGNS: Please see below. GENERAL: Lying in bed comfortably eating breakfast. HEENT: Normal CARDIOVASCULAR: Regular rate and rhythm. RESPIRATORY: Clear to auscultation bilaterally. ABDOMINAL: Soft nontender nondistended with no palpable pulsatile masses. EXTREMITIES: Bilateral lower extremity is are perfused well. Left foot cellulitis is resolving. Left first toe tip with ischemic and gangrenous changes. NEUROLOGICAL: Awake alert oriented 3 with no focal deficits PSYCHOLOGICAL: Normal LABORATORY DATA: Please see below. MICROBIOLOGY: Please see below. IMAGING: Ultrasound shows aortoiliac and femoral-popliteal arterial occlusive disease in the left lower extremity. DVT prophylaxis ordered?: Patient is therapeutic on Coumadin ASSESSMENT AND PLAN: This is a 76-year-old male with an ischemic left first toe , diabetes mellitus and left foot cellulitis who underwent evaluation of his arterial inflow was noted to have arterial insufficiency with atherosclerotic arterial occlusive disease in his aortoiliac and femoral-popliteal distributions. PROBLEMS: 1. Left first toe ischemic and gangrenous changes with left foot cellulitis: She is currently on IV antibiotics with resolving cellulitis and will undergo angiography prior to any decision on whether to perform a left first toe amputation or allow the wound to heal. 2. 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 VS, I&O, 24H, Fishbone Vital Signs/I&O Vital Signs Date Time Temp Pulse Resp B/P (MAP) Pulse Ox O2 Delivery O2 Flow Rate FiO2 07/24/17 22:00 98.3 61 17 128/64 (85) 95 Room Air I&O- Last 24 Hours up to 6 AM 07/25/17 06:00 Intake Total 1550 ml Output Total 150 ml Balance 1400 ml Laboratory Data 24H LABS Laboratory Tests 2 07/24/17 06:50: Bedside Glucose (Misc Panel) 144H 07/24/17 07:25: White Blood Count 6.9, Red Blood Count 3.25L, Hemoglobin 8.9L, Hematocrit 28.9L , Mean Corpuscular Volume 88.9, Mean Corpuscular Hemoglobin 27.4, Mean Corpuscular Hemoglobin Concent 30.8L, Red Cell Distribution Width 16.5H, Platelet Count 192, Neutrophils (%) (Auto) 76.2H, Lymphocytes (%) (Auto) 8.0L, Monocytes (%) (Auto) 10.3H, Eosinophils (%) (Auto) 4.2H, Basophils (%) (Auto) 0.6, Neutrophils # (Auto) 5.2, Lymphocytes # (Auto) 0.6L, Monocytes # (Auto) 0.7 , Eosinophils # (Auto) 0.3, Basophils # (Auto) 0.0, Immature Granulocyte # (Auto ) 0.1H, Nucleated Red Blood Cells % (auto) 0.0, Prothrombin Time 29.2H, Prothromb Time International Ratio 2.63, Anion Gap 8, Glomerular Filtration Rate 47.9, Blood Urea Nitrogen 36H, Creatinine 1.51H, Sodium Level 142, Potassium Level 4.3, Chloride Level 111H, Carbon Dioxide Level 23, Calcium Level 8.7L 07/24/17 11:25: Bedside Glucose (Misc Panel) 278H 07/24/17 16:21: Bedside Glucose (Misc Panel) 123H 07/24/17 20:16: Bedside Glucose (Misc Panel) 102 CBC/BMP Laboratory Tests 07/24/17 07:25 Red Blood Count 3.25 L, Mean Corpuscular Volume 88.9, Mean Corpuscular Hemoglobin 27.4, Mean Corpuscular Hemoglobin Concent 30.8 L, Red Cell Distribution Width 16.5 H, Neutrophils (%) (Auto) 76.2 H, Lymphocytes (%) (Auto ) 8.0 L, Monocytes (%) (Auto) 10.3 H, Eosinophils (%) (Auto) 4.2 H, Basophils (% ) (Auto) 0.6, Neutrophils # (Auto) 5.2, Lymphocytes # (Auto) 0.6 L, Monocytes # (Auto) 0.7, Eosinophils # (Auto) 0.3, Basophils # (Auto) 0.0, Calcium Level 8.7 L Microbiology Microbiology 07/21/17 Blood Culture - Preliminary, Resulted No Growth after 72 hours. All specime... 07/21/17 Blood Culture - Preliminary, Resulted No Growth after 72 hours. All specime... 07/21/17 Gram Stain - Final, Resulted 07/21/17 Wound Culture - Preliminary, Resulted Streptococcus Group G Corynebacterium Species Aj Vicente MD Jul 24, 2017 22:32
[2017-07-24] MEDS: CEFTAROLINE FOSAMIL 400 MG in D5W 50 ML IV SCH (22:39)
[2017-07-25] VITALS (13 sets, daily range): BP systolic 100–136; BP diastolic 51–69
[2017-07-25] MEDS: KCL 20MEQ in NS 1000ML 1,000 ML IV SCH ×2 (01:36→18:25)
[2017-07-25] MEDS: metroNIDAZOLE 500 MG in APPROPRIATE DILUENT 1 EA IV SCH ×3 (02:25→18:25)
[2017-07-25 07:01] LABS: CALCIUM LEVEL 8.9 MG/DL (8.8-10.2); CREATININE FOR GFR 1.53 MG/DL (0.70-1.30); GLOMERULAR FILTRATION RATE 47.2 (>42); POTASSIUM SERUM 4.3 MEQ/L (3.5-5.1)
[2017-07-25 07:09] LABS: BASO % 0.5 % (0.0-1.0); EOS # 0.2 10^3/uL (0.0-0.50); EOS % 2.3 % (0.0-3.0); IMMATURE GRANULOCYTE % 0.6 % (0-0); LYMPH # 0.5 10^3/uL (1.5-4.5); LYMPH % 6.4 % (24.0-44.0); MEAN CORPUSCULAR HEMOGLOBIN 27.3 pg (27.0-33.0); MEAN CORPUSCULAR HGB CONC 30.9 g/dl (32.0-36.5); MEAN CORPUSCULAR VOLUME 88.4 fl (80.0-96.0); MONO # 0.8 10^3/uL (0.0-0.8); MONO % 10.1 % (0.0-5.0); NEUTROPHILS # 6.3 10^3/uL (1.8-7.7); NEUTROPHILS % 80.1 % (36.0-66.0); PLATELET COUNT, AUTOMATED 201 10^3/uL (150-450); RED CELL DISTRIBUTION WIDTH 16.6 % (11.5-14.5); WHITE BLOOD COUNT 7.8 10^3/uL (4.0-10.0)
[2017-07-25 07:14] LABS: INR 2.52
[2017-07-25] MEDS ORDERED: HumaLOG INSULIN (NovoLOG) PER UNIT SC SCH (07:30)
[2017-07-25] MEDS: DIGOXIN 0.125 MG TAB PO SCH (08:52)
[2017-07-25] MEDS: METOPROLOL SUCC (TopROL XL) 50MG **XL** TAB PO SCH (08:52)
[2017-07-25] MEDS: FERROUS SULFATE 325MG TAB PO SCH ×2 (08:52→21:59)
[2017-07-25] MEDS: amLODIPine 10 MG TAB PO SCH (08:52)
[2017-07-25] MEDS: SENOKOT S TAB PO SCH ×2 (08:54→21:59)
[2017-07-25] MEDS: HumaLOG INSULIN (NovoLOG) PER UNIT SC SCH ×3 (08:54→18:28)
[2017-07-25] MEDS: LEVEMIR (INSULIN DETEMIR) 1 UNITS/0.01ML SC SCH ×2 (09:00→21:59)
--- NOTE | 2017-07-25 11:44 | IPN ---
DATE: 07/25/2017 Mr. Segal is seen this morning on his bedside. He is feeling well and is waiting for his angiogram this afternoon. He denies any dyspnea, chest pain, nausea, vomiting, fever or chills. He did have breakfast this morning and is now nothing by mouth. He continues to receive IV normal saline at 75 mL per hour. PHYSICAL EXAMINATION: Temperature 98.5 degrees Fahrenheit, heart rate 70 per minute and respiratory rate 16 per minute. Blood pressure 120/55 mmHg and oxygen saturation 93% on room air. His head is atraumatic. Neck is supple and without jugular venous distention (JVD). Heart sounds are irregular in rhythm. Lungs sound clear to auscultation without any wheezing or rales. Abdomen is soft and nontender. Extremities without any cyanosis or clubbing. Left big toe necrosis is unchanged. Neurologically, he is awake, alert and oriented times three. Today's labs show WBC count 7.8, hemoglobin 8.7 and hematocrit 28.2. Sodium 142 and potassium 4.3. BUN 39 and creatinine 1.50. Most recent INR today is 2.52. PROBLEMS: 1. Chronic kidney disease. No change in kidney function. The patient continues to receive IV normal saline at 75 mL per hour in view of angiogram later today. 2. Left big toe gangrene. Most likely the patient has peripheral vascular disease. He is going to have angiogram later today. The patient understands the risks involved and he is willing to proceed. We have discussed about potential nephrotoxicity; however, Dr. Vicente was try to minimize the intravenous contrast. 3. Iron deficiency anemia. His anemia is stable at present and we have already started oral iron supplement, which will be continued. 4. Hypertension. Blood pressure is very well controlled on current antihypertensive medications.
[2017-07-25] MEDS: CEFTAROLINE FOSAMIL 400 MG in D5W 50 ML IV SCH ×2 (12:38→22:00)
--- NOTE | 2017-07-25 14:18 | IPNPDOC ---
Date Seen The patient was seen on 07/25/17. Progress Note SUBJECTIVE: Patient is a 76-year-old gentleman currently nothing by mouth and awaiting further diagnostic studies with aortogram. Overnight he denies any issues with chest pain, shortness of breath, nausea or vomiting. He denies any leg pain. Has been on IV fluids anticipating arteriogram. OBJECTIVE PHYSICAL EXAMINATION: VITAL SIGNS: Please see below. GENERAL: No acute distress, alert, oriented 3 HEENT: PERRLA. Throat clear. Neck supple CARDIOVASCULAR: Regular rate and rhythm. RESPIRATORY: Clear auscultation laterally. ABDOMINAL: Soft, nontender, nondistended, positive bowel sounds, mass, no rebound EXTREMITIES: No edema, no calf tenderness NEUROLOGICAL: Grossly intact PSYCHOLOGICAL: Negative LABORATORY DATA: Please see below. IMAGING: Arterial ultrasound lower extremities with the following results: *Significant plaquing is seen throughout the left lower extremity arterial system. Luminal narrowing visually at the origin of the left superficial femoral artery is approximately 50% with the lumen decreasing in diameter from 8 mm to 4 mm. Triphasic waveforms are seen proximal to this level with monophasic waveforms distal to this level. Peak systolic velocity of the left common femoral artery is 100 cm/s, profunda 170 cm/s, and proximal superficial femoral artery 64 cm/s. Distal superficial femoral artery demonstrates increased velocity at 103 cm/s with significant plaque and narrowing. Severe plaquing and narrowing is seen of the popliteal artery. Peak systolic velocity 56 cm/s. There appears to be a collateral artery along the origin of the anterior tibial artery. Severe plaquing and narrowing is seen of the distal anterior tibial artery with very slow flow. Peak systolic velocity proximally in the anterior tibial artery is 35 cm/s and distally 8 cm/s. Distal posterior tibial artery is not visualized. It is very thin proximally with a peak systolic velocity of 38 cm/s. Incidental note is made of multiple dilated venous structures in the ankle near a skin ulcer raising the possibility of venous stasis pathology. Aortogram is pending DVT prophylaxis ordered?: Yes ASSESSMENT AND PLAN: 76-year-old gentleman with gangrene involving the left greater toe and significant peripheral vascular/arterial disease. PROBLEMS: 1. Left greater toe gangrene: Continue IV antibiotics. Appreciate Dr. Vicente's input anticipate aortogram to help further delineate the next 7 to the process either stent placement or amputation. 2. Diabetes: Continued fingersticks before meals at bedtime consistent carb diet and sliding scale coverage. 3. Hypertension: We'll continue to monitor. No change in current medications. 4. Hyperlipidemia: Continue statin 5. Paroxysmal atrial fibrillation: Rate controlled on metoprolol and anticoagulated with Coumadin. 6. Chronic renal disease: Renal function appears to be baseline. We'll avoid nephrotoxic drugs. Per say Dr. Luo's input he's receiving IV fluids in anticipation to arteriogram. Repeat renal function studies tomorrow. 7. Iron deficient anemia: Continue with iron supplementation. No immediate need for blood transfusion. 8. DVT prophylaxis: Anticoagulated with Coumadin. We'll continue to monitor INR. DISPOSITION: Awaiting results of arteriogram for further disposition.. VS, I&O, 24H, Fishbone Vital Signs/I&O Vital Signs Date Time Temp Pulse Resp B/P (MAP) Pulse Ox O2 Delivery O2 Flow Rate FiO2 07/25/17 09:00 Room Air 07/25/17 08:52 77 120/55 07/25/17 06:00 98.5 15 93 I&O- Last 24 Hours up to 6 AM 07/26/17 06:00 Intake Total 240 ml Balance 240 ml Laboratory Data 24H LABS Laboratory Tests 2 07/24/17 16:21: Bedside Glucose (Misc Panel) 123H 07/24/17 20:16: Bedside Glucose (Misc Panel) 102 07/25/17 06:06: White Blood Count 7.8, Red Blood Count 3.19L, Hemoglobin 8.7L, Hematocrit 28.2L , Mean Corpuscular Volume 88.4, Mean Corpuscular Hemoglobin 27.3, Mean Corpuscular Hemoglobin Concent 30.9L, Red Cell Distribution Width 16.6H, Platelet Count 201, Neutrophils (%) (Auto) 80.1H, Lymphocytes (%) (Auto) 6.4L, Monocytes (%) (Auto) 10.1H, Eosinophils (%) (Auto) 2.3, Basophils (%) (Auto) 0.5 , Neutrophils # (Auto) 6.3, Lymphocytes # (Auto) 0.5L, Monocytes # (Auto) 0.8, Eosinophils # (Auto) 0.2, Basophils # (Auto) 0.0, Immature Granulocyte # (Auto) 0.1H, Nucleated Red Blood Cells % (auto) 0.0, Prothrombin Time 28.2H, Prothromb Time International Ratio 2.52, Anion Gap 8, Glomerular Filtration Rate 47.2, Blood Urea Nitrogen 39H, Creatinine 1.53H, Sodium Level 142, Potassium Level 4.3 , Chloride Level 112H, Carbon Dioxide Level 22, Calcium Level 8.9 07/25/17 06:21: Bedside Glucose (Misc Panel) 64L 07/25/17 06:52: Bedside Glucose (Misc Panel) 95 07/25/17 12:11: Bedside Glucose (Misc Panel) 174H CBC/BMP Laboratory Tests 07/25/17 06:06 Red Blood Count 3.19 L, Mean Corpuscular Volume 88.4, Mean Corpuscular Hemoglobin 27.3, Mean Corpuscular Hemoglobin Concent 30.9 L, Red Cell Distribution Width 16.6 H, Neutrophils (%) (Auto) 80.1 H, Lymphocytes (%) (Auto ) 6.4 L, Monocytes (%) (Auto) 10.1 H, Eosinophils (%) (Auto) 2.3, Basophils (%) (Auto) 0.5, Neutrophils # (Auto) 6.3, Lymphocytes # (Auto) 0.5 L, Monocytes # ( Auto) 0.8, Eosinophils # (Auto) 0.2, Basophils # (Auto) 0.0, Calcium Level 8.9 Microbiology Microbiology 07/21/17 Blood Culture - Preliminary, Resulted No Growth after 72 hours. All specime... 07/21/17 Blood Culture - Preliminary, Resulted No Growth after 72 hours. All specime... 07/21/17 Gram Stain - Final, Complete 07/21/17 Wound Culture - Final, Complete Streptococcus Group G Corynebacterium Species SEGUN HINOJOSA DO Jul 25, 2017 14:18
[2017-07-25] MEDS ORDERED: ISOVUE-300 61% 50ML VIAL (Q9967) As Ordered ONE (16:05)
[2017-07-25] MEDS ORDERED: fentaNYL 100 MCG/2 ML INJECTION (J3010) As Ordered ONE (16:32)
[2017-07-25] MEDS ORDERED: MIDAZOLAM INJ 2 MG/2 ML VIAL (J2250) As Ordered ONE (16:32)
[2017-07-25] MEDS ORDERED: LIDOCAINE 2% MDV 20 ML VIAL As Ordered ONE (16:37)
[2017-07-25] MEDS: SIMVASTATIN 10 MG TAB PO SCH (21:59)
[2017-07-26] VITALS (8 sets, daily range): BP systolic 99–120; BP diastolic 50–64
[2017-07-26] MEDS: metroNIDAZOLE 500 MG in APPROPRIATE DILUENT 1 EA IV SCH ×3 (02:27→18:09)
[2017-07-26] MEDS: KCL 20MEQ in NS 1000ML 1,000 ML IV SCH (04:38)
[2017-07-26 06:12] LABS: BASO % 0.6 % (0.0-1.0); EOS # 0.3 10^3/uL (0.0-0.50); EOS % 3.7 % (0.0-3.0); LYMPH # 0.5 10^3/uL (1.5-4.5); LYMPH % 7.9 % (24.0-44.0); MEAN CORPUSCULAR HGB CONC 31.2 g/dl (32.0-36.5); MEAN CORPUSCULAR VOLUME 89.8 fl (80.0-96.0); MONO # 0.7 10^3/uL (0.0-0.8); MONO % 10.9 % (0.0-5.0); NEUTROPHILS # 5.1 10^3/uL (1.8-7.7); NEUTROPHILS % 75.9 % (36.0-66.0); PLATELET COUNT, AUTOMATED 186 10^3/uL (150-450); WHITE BLOOD COUNT 6.7 10^3/uL (4.0-10.0)
[2017-07-26 06:22] LABS: INR 2.06
[2017-07-26 06:40] LABS: CALCIUM LEVEL 8.7 MG/DL (8.8-10.2); CREATININE FOR GFR 1.56 MG/DL (0.70-1.30); GLOMERULAR FILTRATION RATE 46.2 (>42); POTASSIUM SERUM 4.6 MEQ/L (3.5-5.1)
[2017-07-26] MEDS: EUCERIN 120GM CREAM TOP SCH ×2 (09:00→22:20)
[2017-07-26] MEDS: HumaLOG INSULIN (NovoLOG) PER UNIT SC SCH ×3 (09:13→18:09)
[2017-07-26] MEDS: LEVEMIR (INSULIN DETEMIR) 1 UNITS/0.01ML SC SCH ×2 (09:14→22:21)
[2017-07-26] MEDS: SENOKOT S TAB PO SCH ×2 (09:15→22:20)
[2017-07-26] MEDS: FERROUS SULFATE 325MG TAB PO SCH ×2 (09:15→22:20)
[2017-07-26] MEDS: METOPROLOL SUCC (TopROL XL) 50MG **XL** TAB PO SCH (09:16)
[2017-07-26] MEDS: amLODIPine 10 MG TAB PO SCH (09:16)
[2017-07-26] MEDS: DIGOXIN 0.125 MG TAB PO SCH (09:16)
[2017-07-26] MEDS: CEFTAROLINE FOSAMIL 400 MG in D5W 50 ML IV SCH ×2 (12:13→22:21)
--- NOTE | 2017-07-26 12:30 | IPN ---
DATE OF SERVICE: 07/26/2017 SUBJECTIVE: The patient was seen and examined at the bedside today morning. He was sitting in the bed. He reports that he got the angiogram done yesterday. He reports some improvement in the left leg pain and swelling. The patient continues to be on intravenous (IV) fluid hydration at this time. Renal function is stable at this time. The patient still has a foul smelling left big toe gangrene at this time. REVIEW OF SYSTEMS: The patient denies any fever, chills, rigors, headache, nausea, vomiting, chest pain, shortness of breath, pain abdomen, or constipation. The patient does report lower extremity edema. The rest of review of systems is negative. OBJECTIVE: VITAL SIGNS: Temperature is 98.8 degrees Fahrenheit, blood pressure is 110/64, pulse is 57, respiratory rate of 18, saturating 93% on room air. INTAKE AND OUTPUT: Urine output recorded is 400 mL overnight. Weight in the bed scale is not available. PHYSICAL EXAMINATION: GENERAL: The patient is awake, alert, oriented times three, sitting in the bed, in no apparent distress. HEAD AND NECK EXAMINATION: Extraocular muscles intact. Pupils equally round and reactive to light. Neck is supple. There is no jugular venous distention (JVD). CARDIOVASCULAR: Irregularly irregular heart rate. The patient has a grade 2/6 systolic ejection murmur. RESPIRATORY: Chest is clear to auscultation bilaterally. Bilateral equal air entry. No rales or rhonchi. ABDOMEN: Is soft, obese. Positive bowel sounds. Nontender. No ascites. No organomegaly. MUSCULOSKELETAL: The patient has chronic venous stasis changes of the bilateral lower extremities. He has 1+ edema of the bilateral lower extremities, and the patient has a foul smelling gangrene of the left big toe. CENTRAL NERVOUS SYSTEM (CHIEF TECHNOLOGIST): No focal neurological deficit. Power is 5/5 in all extremities. PSYCHIATRIC: Normal mood and affect. LABORATORY REVIEW: CBC showed a WBC 6.7, hemoglobin 8.8, platelets of 186. INR is 2. BMP showed sodium 142, potassium 4.6, chloride 113, bicarbonate 21, BUN 43, creatinine is 1.5, calcium is 8.7. CURRENT INPATIENT MEDICATIONS: The patient's medications were all reviewed by me. He continues to be on intravenous (IV) ceftaroline. He was on IV fluid, and I stopped his IV fluid this morning, and he is also on Flagyl 500 mg IV every 8 hours. There is no other change in the medication today as compared with yesterday. ASSESSMENT: A 76-year-old male with past medical history of chronic kidney disease stage III, history of diabetes mellitus type 2, admitted this time because of left big toe gangrene. Nephrology service following the patient for management of chronic kidney disease and contrast-induced prophylaxis. PLAN: 1. Chronic kidney disease stage III. The patient's renal function is stable. He continued IV fluid hydration after the IV contrast study yesterday. Creatinine is 1.5. I am going to stop the IV fluids at this time. The patient will be restarted on IV fluid hydration on 07/28/2017, when he would get another angiogram by vascular surgery. 2. Left big toe gangrene. The patient is currently on IV ceftaroline and IV Flagyl. He got the angiogram done yesterday. Another angiogram will be done on 07/28/2017. The rest of the management is as per Dr. Vicente. 3. Iron-deficiency anemia. The patient is on oral iron. Continue the oral iron administration at this time. Hemoglobin is 8.8 at this time, which is optimal. No need of blood transfusion. No IV iron at this time in acute infection. 4. Hypertension. Blood pressure is well controlled at this time. Continue current dose of metoprolol succinate 50 mg by mouth daily, amlodipine 10 mg by mouth daily.
--- NOTE | 2017-07-26 12:32 | IPNPDOC ---
Date Seen The patient was seen on 07/26/17. Progress Note SUBJECTIVE: Patient is a 76-year-old gentleman seen at bedside. His is present. No Overnight issues reported. He's eating breakfast, tolerating meals. Denies headache, lightheadedness, chest pain, productive sputum, cough, shortness of breath. No nausea, vomiting or diarrhea. OBJECTIVE PHYSICAL EXAMINATION: VITAL SIGNS: Please see below. GENERAL: No acute distress, alert and oriented 3 HEENT: PERRLA. Throat clear. Neck supple CARDIOVASCULAR: Regular rate and rhythm. RESPIRATORY: Clear to all station bilaterally. ABDOMINAL: Soft, anteroseptal positive bowel sounds EXTREMITIES: No edema, no calf tenderness, granulation an eschar noted involving the distal portion of the right greater toe, more prominently on the dorsal surface involving the nail matrix. NEUROLOGICAL: Cranial nerves II through XII grossly intact PSYCHOLOGICAL: Negative LABORATORY DATA: Please see below. MICROBIOLOGY: Please see below. DVT prophylaxis ordered?: Encouraged to ambulate, teds and sequentials while in bed ASSESSMENT AND PLAN: This is a pleasant 76-year-old gentleman unfortunately has gangrene and ulceration involving the dorsum of the left greater toe with no peripheral vascular disease. PROBLEMS: 1. Left greater toe gangrene: Continue IV antibiotics, Teflaro and Flagyl. Appreciate Dr. Vicente's input anticipate aortogram to help further delineate treatment. 2. Diabetes: Continued fingersticks before meals at bedtime consistent carb diet and sliding scale coverage. 3. Hypertension: We'll continue to monitor. No change in current medications, Norvasc and Toprol-XL. 4. Hyperlipidemia: Continue statin 5. Paroxysmal atrial fibrillation: Rate controlled on Toprol, XL and digoxin. Coumadin currently held until we determine if he's going to need surgery. 6. Chronic renal disease: Renal function appears to be baseline. We'll avoid nephrotoxic drugs. Per say Dr. Luo's input he's receiving IV fluids in anticipation to arteriogram. Repeat renal function studies tomorrow. 7. Iron deficient anemia: Continue with iron supplementation. No immediate need for blood transfusion. 8. DVT prophylaxis: Teds and sequentials, but I'll try to clarify with vascular surgery, calcium, we can resume his Coumadin. DISPOSITION: Awaiting results of arteriogram for further disposition. VS, I&O, 24H, Fishbone Vital Signs/I&O Vital Signs Date Time Temp Pulse Resp B/P (MAP) Pulse Ox O2 Delivery O2 Flow Rate FiO2 07/26/17 10:00 97.8 68 18 117/57 (77) 95 Room Air I&O- Last 24 Hours up to 6 AM 07/27/17 06:00 Intake Total 910 ml Output Total 275 ml Balance 635 ml Laboratory Data 24H LABS Laboratory Tests 2 07/25/17 18:18: Bedside Glucose (Misc Panel) 209H 07/25/17 20:32: Bedside Glucose (Misc Panel) 192H 07/26/17 05:49: White Blood Count 6.7, Red Blood Count 3.14L, Hemoglobin 8.8L, Hematocrit 28.2L , Mean Corpuscular Volume 89.8, Mean Corpuscular Hemoglobin 28.0, Mean Corpuscular Hemoglobin Concent 31.2L, Red Cell Distribution Width 17.0H, Platelet Count 186, Neutrophils (%) (Auto) 75.9H, Lymphocytes (%) (Auto) 7.9L, Monocytes (%) (Auto) 10.9H, Eosinophils (%) (Auto) 3.7H, Basophils (%) (Auto) 0.6, Neutrophils # (Auto) 5.1, Lymphocytes # (Auto) 0.5L, Monocytes # (Auto) 0.7 , Eosinophils # (Auto) 0.3, Basophils # (Auto) 0.0, Immature Granulocyte # (Auto ) 0.1H, Nucleated Red Blood Cells % (auto) 0.0, Prothrombin Time 23.9H, Prothromb Time International Ratio 2.06, Anion Gap 8, Glomerular Filtration Rate 46.2, Blood Urea Nitrogen 43H, Creatinine 1.56H, Sodium Level 142, Potassium Level 4.6, Chloride Level 113H, Carbon Dioxide Level 21, Calcium Level 8.7L 07/26/17 08:29: Bedside Glucose (Misc Panel) 94 07/26/17 10:54: Bedside Glucose (Misc Panel) 147H CBC/BMP Laboratory Tests 07/26/17 05:49 Red Blood Count 3.14 L, Mean Corpuscular Volume 89.8, Mean Corpuscular Hemoglobin 28.0, Mean Corpuscular Hemoglobin Concent 31.2 L, Red Cell Distribution Width 17.0 H, Neutrophils (%) (Auto) 75.9 H, Lymphocytes (%) (Auto ) 7.9 L, Monocytes (%) (Auto) 10.9 H, Eosinophils (%) (Auto) 3.7 H, Basophils (% ) (Auto) 0.6, Neutrophils # (Auto) 5.1, Lymphocytes # (Auto) 0.5 L, Monocytes # (Auto) 0.7, Eosinophils # (Auto) 0.3, Basophils # (Auto) 0.0, Calcium Level 8.7 L Microbiology Microbiology 07/21/17 Blood Culture - Preliminary, Resulted No Growth after 72 hours. All specime... 07/21/17 Blood Culture - Preliminary, Resulted No Growth after 72 hours. All specime... 07/21/17 Gram Stain - Final, Complete 07/21/17 Wound Culture - Final, Complete Streptococcus Group G Corynebacterium Species SEGUN HINOJOSA DO Jul 26, 2017 12:32
[2017-07-26] MEDS: HEPARIN DRIP 25,000 UNITS in APPROPRIATE DILUENT 1 EA IV SCH ×2 (16:14→23:22)
[2017-07-26] MEDS: SIMVASTATIN 10 MG TAB PO SCH (22:21)
[2017-07-27] MEDS: metroNIDAZOLE 500 MG in APPROPRIATE DILUENT 1 EA IV SCH ×3 (02:17→17:41)
[2017-07-27 05:54] LABS: BASO # 0.1 10^3/uL (0.0-0.2); EOS # 0.2 10^3/uL (0.0-0.50); EOS % 2.2 % (0.0-3.0); IMMATURE GRANULOCYTE % 2.2 % (0-0); IONIZED CALCIUM 4.7 MG/DL (4.5-5.3); LYMPH # 0.8 10^3/uL (1.5-4.5); LYMPH % 9.5 % (24.0-44.0); MEAN CORPUSCULAR HEMOGLOBIN 27.4 pg (27.0-33.0); MEAN CORPUSCULAR HGB CONC 30.5 g/dl (32.0-36.5); MEAN CORPUSCULAR VOLUME 89.6 fl (80.0-96.0); MONO # 0.8 10^3/uL (0.0-0.8); MONO % 10.2 % (0.0-5.0); NEUTROPHILS # 6.1 10^3/uL (1.8-7.7); NEUTROPHILS % 74.9 % (36.0-66.0); PLATELET COUNT, AUTOMATED 185 10^3/uL (150-450); RED CELL DISTRIBUTION WIDTH 16.9 % (11.5-14.5); WHITE BLOOD COUNT 8.1 10^3/uL (4.0-10.0)
[2017-07-27 06:13] LABS: INR 1.98
[2017-07-27 06:16] LABS: CALCIUM LEVEL 8.4 MG/DL (8.8-10.2); CREATININE FOR GFR 2.16 MG/DL (0.70-1.30); GLOMERULAR FILTRATION RATE 31.7 (>42); MAGNESIUM LEVEL 2.1 MG/DL (1.8-2.4); PHOSPHORUS LEVEL 2.8 MG/DL (2.5-4.9); POTASSIUM SERUM 4.8 MEQ/L (3.5-5.1)
[2017-07-27] MEDS: HEPARIN DRIP 25,000 UNITS in APPROPRIATE DILUENT 1 EA IV SCH ×2 (07:12→14:51)
[2017-07-27] MEDS: HumaLOG INSULIN (NovoLOG) PER UNIT SC SCH ×3 (07:30→17:41)
[2017-07-27] MEDS ORDERED: NS 1,000 ML IV SCH (08:00)
[2017-07-27] MEDS: SENOKOT S TAB PO SCH ×2 (08:52→20:30)
[2017-07-27] MEDS: FERROUS SULFATE 325MG TAB PO SCH ×2 (08:52→20:29)
[2017-07-27] MEDS: amLODIPine 10 MG TAB PO SCH (08:53)
[2017-07-27] MEDS: METOPROLOL SUCC (TopROL XL) 50MG **XL** TAB PO SCH (08:53)
[2017-07-27] MEDS: LEVEMIR (INSULIN DETEMIR) 1 UNITS/0.01ML SC SCH ×2 (08:55→20:30)
[2017-07-27] MEDS: EUCERIN 120GM CREAM TOP SCH ×2 (09:20→20:31)
[2017-07-27] MEDS: DIGOXIN 0.125 MG TAB PO SCH (09:20)
[2017-07-27 10:00] VITALS: BP 112/55
[2017-07-27] MEDS ORDERED: SODIUM CHLORIDE 0.9% 1000 ML IV ONE (11:00)
--- NOTE | 2017-07-27 11:49 | IPN ---
DATE OF SERVICE: 07/27/2017 SUBJECTIVE: Patient was seen and examined at the bedside today morning. Last 24 hour events were noted. Patient's IV fluids were stopped yesterday morning. Patient made only 600 mL of urine yesterday and only 100 mL of urine so far today and as reported by nursing, patient has very dark urine. Bedside bladder scan was also done which only showed around 100 mL of urine in the bladder. Patient's renal function is significantly worse. Creatinine has bumped up from 1.5 to 2.16 today morning. REVIEW OF SYSTEMS: Patient denies any fevers, chills, rigors, headache, nausea, vomiting, chest pain, pain in abdomen, shortness of breath. He does report moderate amount of pain in the left lower extremity. Rest of review of system is negative. OBJECTIVE: Vital signs: Temperature is 97.5 degrees Fahrenheit, blood pressure is 110/64, pulse is 61, respiratory rate of 16, saturating 94% on room air. Intake and output: Urine output is 600 mL yesterday, 100 mL so far today since overnight. Weight on the bed scale is not available. PHYSICAL EXAMINATION: General: Patient is awake, alert, oriented times three, lying in bed, no apparent distress. Head and neck exam: Extraocular muscles intact. Pupils equally round and reactive to light. Mucous membranes are moist. Neck is supple, there is no jugular venous distention (JVD). Cardiovascular: Irregularly irregular heart rate. He has a grade 2/6 systolic ejection murmur. Respiratory: Chest is clear to auscultation bilaterally. Bilateral equal air entry. No rales or rhonchi. Abdomen is soft, obese, positive bowel sounds. Nontender. No ascites. No organomegaly. Musculoskeletal: Patient had chronic venous stasis changes of the bilateral lower extremites. He has trace edema of the bilateral lower extremities and he has a foul smelling gangrene of the left big toe and moderate amount of tenderness on deep palpation in the left lower extremity. Central nervous system: No focal neurological deficit. Power is 5/5 in all extremities. Psych: Normal mood and affect. LAB REVIEW: CBC showed WBC 8.1, hemoglobin 8.7, platelets are 185. INR is 1.9. BMP showed sodium 140, potassium 4.8, chloride 112. Bicarbonate is 22, BUN 47, creatinine is 2.1, it was 1.5 yesterday. INR: Calcium is 4.7, phosphorus is 2.8, magnesium is 2.1. CURRENT INPATIENT MEDICATIONS: Patient's medications are all reviewed by me. He continues to be on IV ceftaroline and Flagyl. I have restarted the patient on IV fluids at 75 mL/hr and patient was given IV fluid bolus of normal saline 250 mL as well. There is no other change in the medications today. ASSESSMENT: 76-year-old male with past medical history of chronic kidney disease stage III, history of diabetes mellitus type 2, admitted this time because of left big toe gangrene secondary to left lower extremity ischemia. Nephrology service following the patient for management of contrast induced nephropathy on top of chronic kidney disease. PLAN: 1. Contrast induced nephropathy. Patient got the IV contrast on Friday. His baseline creatinine is 1.5. His creatinine has bumped up to 2.1. Even though patient is taking enough liquids orally, I have restarted the patient on IV fluids at 75 mL/hr. Patient was also given a bolus of 250 mL of normal saline. Bladder scan was done at the bedside. There was only 100 mL of urine. I have ordered a repeat urine electrolytes and urinalysis as well. 2. Left big toe gangrene. Patient continues to be on IV ceftaroline and Flagyl. His angiogram was done on 07/25/2017. A repeat angiogram is scheduled tomorrow 07/28/2017. If patient's renal function does not improve back to his baseline, then we might have to postpone his second angiogram. 3. Iron deficiency anemia. Patient is on oral iron at this time. Hemoglobin is stable around 8.7. No IV iron at this time because of active infection. 4. Hypertension. Blood pressure is acceptable at this time. Continue current dose of metoprolol 50 mg and amlodipine 10 mg daily.
[2017-07-27] MEDS: CEFTAROLINE FOSAMIL 400 MG in D5W 50 ML IV SCH ×2 (11:55→22:54)
[2017-07-27] MEDS: NS 1,000 ML IV SCH (11:55)
--- NOTE | 2017-07-27 12:13 | IPNPDOC ---
Date Seen The patient was seen on 07/27/17. Progress Note SUBJECTIVE: Patient is a 76-year-old male seen at bedside, resting comfortably. His daughter is present today. He denies any overnight issues. No fevers, chills , chest pain, shortness of breath, productive sputum, cough, abdominal pain, no nausea, vomiting, is tolerating meals. She's had a bowel movement. He is voiding fine. OBJECTIVE PHYSICAL EXAMINATION: VITAL SIGNS: Please see below. GENERAL: [No acute distress, alert, oriented 3] HEENT: [PERRLA. Throat clear. Neck supple, no adenopathy] CARDIOVASCULAR: [Regular rate and rhythm]. RESPIRATORY: [Clear to auscultation bilaterally]. ABDOMINAL: [Soft, anteroseptal positive bowel sounds] EXTREMITIES: [No new changes. No edema, no calf tenderness] NEUROLOGICAL: [Cranial nerves II through XII grossly intact] PSYCHOLOGICAL: [Negative] LABORATORY DATA: Please see below. DVT prophylaxis ordered?: [Yes] ASSESSMENT AND PLAN: This is a pleasant 76-year-old gentleman with poor vascular circulation. On IV heparin for anticoagulation and IV fluids for renal insufficiency. Was admitted a few days ago for gangrene involving the left greater toe. PROBLEMS: 1. Left greater toe gangrene: Continue IV antibiotics, Teflaro and Flagyl. Appreciate Dr. Vicente's input regarding aortogram to help further delineate treatment. 2. Diabetes: Continued fingersticks before meals at bedtime consistent carb diet and sliding scale coverage. 3. Hypertension: We'll continue to monitor. No change in current medications, Norvasc and Toprol-XL. 4. Hyperlipidemia: Continue statin 5. Paroxysmal atrial fibrillation: Rate controlled on Toprol, XL and digoxin. Coumadin currently held until we determine if he's going to need surgery, in the meantime, he is on heparin drip. 6. Chronic renal disease: Slight increase in his creatinine will defer to nephrology regarding possibility of contrast-induced nephritis. 7. Iron deficient anemia: Continue with iron supplementation. No immediate need for blood transfusion. 8. DVT prophylaxis: Heparin drip for now. Coumadin will be resumed in the future. DISPOSITION: Awaiting further recommendations by vascular surgery and nephrology. VS, I&O, 24H, Fishbone Vital Signs/I&O Vital Signs Date Time Temp Pulse Resp B/P (MAP) Pulse Ox O2 Delivery O2 Flow Rate FiO2 07/27/17 10:00 98.0 62 17 112/55 (74) 95 Room Air I&O- Last 24 Hours up to 6 AM 07/28/17 06:00 Intake Total 240 ml Balance 240 ml Laboratory Data 24H LABS Laboratory Tests 2 07/26/17 14:25: Activated Partial Thromboplast Time 57.8H 07/26/17 17:03: Bedside Glucose (Misc Panel) 98 07/26/17 20:23: Bedside Glucose (Misc Panel) 105 07/26/17 20:26: Activated Partial Thromboplast Time 169.4*H 07/27/17 02:40: Activated Partial Thromboplast Time > 240.0*H 07/27/17 05:37: Activated Partial Thromboplast Time 103.2H, Immature Granulocyte % (Auto) 2.2H, White Blood Count 8.1, Red Blood Count 3.18L, Hemoglobin 8.7L, Hematocrit 28.5L , Mean Corpuscular Volume 89.6, Mean Corpuscular Hemoglobin 27.4, Mean Corpuscular Hemoglobin Concent 30.5L, Red Cell Distribution Width 16.9H, Platelet Count 185, Neutrophils (%) (Auto) 74.9H, Lymphocytes (%) (Auto) 9.5L, Monocytes (%) (Auto) 10.2H, Eosinophils (%) (Auto) 2.2, Basophils (%) (Auto) 1.0 , Neutrophils # (Auto) 6.1, Lymphocytes # (Auto) 0.8L, Monocytes # (Auto) 0.8, Eosinophils # (Auto) 0.2, Basophils # (Auto) 0.1, Immature Granulocyte # (Auto) 0.2H, Nucleated Red Blood Cells % (auto) 0.0, Prothrombin Time 23.2H, Prothromb Time International Ratio 1.98, Anion Gap 6L, Glomerular Filtration Rate 31.7L, Blood Urea Nitrogen 47H, Creatinine 2.16H, Sodium Level 140, Potassium Level 4.8 , Chloride Level 112H, Carbon Dioxide Level 22, Calcium Level 8.4L, Whole Blood Ionized Calcium 4.7, Phosphorus Level 2.8, Magnesium Level 2.1 CBC/BMP Laboratory Tests 07/27/17 05:37 Red Blood Count 3.18 L, Mean Corpuscular Volume 89.6, Mean Corpuscular Hemoglobin 27.4, Mean Corpuscular Hemoglobin Concent 30.5 L, Red Cell Distribution Width 16.9 H, Neutrophils (%) (Auto) 74.9 H, Lymphocytes (%) (Auto ) 9.5 L, Monocytes (%) (Auto) 10.2 H, Eosinophils (%) (Auto) 2.2, Basophils (%) (Auto) 1.0, Neutrophils # (Auto) 6.1, Lymphocytes # (Auto) 0.8 L, Monocytes # ( Auto) 0.8, Eosinophils # (Auto) 0.2, Basophils # (Auto) 0.1, Calcium Level 8.4 L Microbiology Microbiology 07/21/17 Blood Culture - Final, Complete NO GROWTH AFTER 5 DAYS 07/21/17 Blood Culture - Final, Complete NO GROWTH AFTER 5 DAYS 07/21/17 Gram Stain - Final, Complete 07/21/17 Wound Culture - Final, Complete Streptococcus Group G Corynebacterium Species SEGUN HINOJOSA DO Jul 27, 2017 12:13
[2017-07-27 13:09] LABS: INR 2.01
[2017-07-27 14:00] VITALS: BP 115/55
[2017-07-27 18:00] VITALS: BP 109/54
[2017-07-27] MEDS: SIMVASTATIN 10 MG TAB PO SCH (20:29)
[2017-07-27 22:00] VITALS: BP 129/59
[2017-07-28 02:00] VITALS: BP 118/56
[2017-07-28] MEDS: NS 1,000 ML IV SCH (02:00)
[2017-07-28] MEDS: metroNIDAZOLE 500 MG in APPROPRIATE DILUENT 1 EA IV SCH ×2 (02:01→10:16)
[2017-07-28 06:00] VITALS: BP 123/62
[2017-07-28] MEDS: HumaLOG INSULIN (NovoLOG) PER UNIT SC SCH ×3 (07:30→17:30)
[2017-07-28 07:51] LABS: BASO # 0.1 10^3/uL (0.0-0.2); BASO % 0.9 % (0.0-1.0); EOS # 0.2 10^3/uL (0.0-0.50); EOS % 2.6 % (0.0-3.0); IMMATURE GRANULOCYTE % 1.9 % (0-0); LYMPH # 0.8 10^3/uL (1.5-4.5); LYMPH % 8.5 % (24.0-44.0); MEAN CORPUSCULAR HEMOGLOBIN 27.5 pg (27.0-33.0); MEAN CORPUSCULAR HGB CONC 31.1 g/dl (32.0-36.5); MEAN CORPUSCULAR VOLUME 88.4 fl (80.0-96.0); MONO # 0.8 10^3/uL (0.0-0.8); MONO % 9.5 % (0.0-5.0); NEUTROPHILS # 6.8 10^3/uL (1.8-7.7); NEUTROPHILS % 76.6 % (36.0-66.0); PLATELET COUNT, AUTOMATED 203 10^3/uL (150-450); WHITE BLOOD COUNT 8.9 10^3/uL (4.0-10.0)
[2017-07-28 07:54] LABS: ADD MANUAL DIFFER NO; DIFF SLIDE NUMBER 8
[2017-07-28] MEDS ORDERED: NS 1,000 ML IV SCH (08:00)
[2017-07-28 08:01] LABS: CALCIUM LEVEL 8.6 MG/DL (8.8-10.2); CREATININE FOR GFR 1.95 MG/DL (0.70-1.30); GLOMERULAR FILTRATION RATE 35.7 (>42); POTASSIUM SERUM 4.6 MEQ/L (3.5-5.1)
[2017-07-28 08:20] LABS: INR 1.67
[2017-07-28] MEDS: amLODIPine 10 MG TAB PO SCH (08:22)
[2017-07-28] MEDS: METOPROLOL SUCC (TopROL XL) 50MG **XL** TAB PO SCH (08:23)
[2017-07-28] MEDS: FERROUS SULFATE 325MG TAB PO SCH ×2 (08:23→20:25)
[2017-07-28] MEDS: DIGOXIN 0.125 MG TAB PO SCH (08:24)
[2017-07-28] MEDS: SENOKOT S TAB PO SCH ×2 (08:24→20:25)
[2017-07-28] MEDS: HEPARIN SOD (PORCINE) 5000 UNITS/ML VIAL IV PRN ×2 (08:35→23:45)
[2017-07-28 10:00] VITALS: BP 114/54
[2017-07-28] MEDS: LEVEMIR (INSULIN DETEMIR) 1 UNITS/0.01ML SC SCH ×2 (10:19→20:26)
[2017-07-28] MEDS: EUCERIN 120GM CREAM TOP SCH ×2 (10:20→20:26)
--- NOTE | 2017-07-28 11:51 | IPN ---
DATE: 07/28/2017 SUBJECTIVE: The patient is seen this morning at the bedside. Family is present. The patient complains of lower extremity edema, upper extremity edema and groin edema. He continues on normal saline at 75 mL an hour. He is tolerating a regular diet without issues. He complains of urinary hesitation. His creatinine is improved from yesterday, 2.1 to 1.9 today. I spoke with Dr. Vicente this morning regarding holding the patient's angiography for 24 hours in light of his current renal function, and I discussed the same with the patient and his family at the bedside. REVIEW OF SYSTEMS: Positive for pitting lower extremity edema and complaint of groin edema and complaint of urinary hesitation. Negative for chest pain, palpitations, shortness of breath, nausea, vomiting, abdominal pain, diarrhea. He does report pain in the left lower extremity. Remainder of review of systems is negative. OBJECTIVE: Afebrile. Temperature 98.8, pulse 63, respiratory rate 20, blood pressure 123/62, saturating 95% on room air. Intake and output: Urine output recorded as 400 mL. Oral intake 720 mL. IV intake 1400 mL. Net positive 1.7 liters. Weight on the bed scale today 122.4 kg, increased from prior. PHYSICAL EXAMINATION: The patient is awake, alert, oriented times four. He is sitting up in bed with legs dangling off the side of the bed and the family is present at the bedside. He is in no distress and is in fair spirits this morning. HEAD/NECK: Extraocular muscles are intact. Pupils are round and reactive. Mucous membranes are moist. There is no jugular venous distention (JVD) at 90 degrees. CARDIOVASCULAR: Heart sounds are irregular due to known atrial fibrillation. Radial pulses are 2+. Lower extremity is significant for 2+ pitting edema that extends just above the knee. RESPIRATORY: Lungs are clear to auscultation bilaterally. The patient is comfortable on room air. No rales or rhonchi appreciable. ABDOMEN: Soft, obese, nontender. MUSCULOSKELETAL: Edema present in the hands. Left foot is in dressings, there is a foul odor. There is 2+ edema present below the knee. GENITOURINARY: No Schuler catheter. Groin was not examined. CENTRAL NERVOUS SYSTEM (COURT MANAGER): No focal neurological deficit. PSYCHIATRIC: Appropriate mood and affect. LABORATORY DATA: White count 8.9, hemoglobin 8.8, platelets 203, eosinophil percent 2.6%. Sodium 139, potassium 4.6, bicarbonate 20, BUN 46, creatinine 1.9, calcium 8.6, glucose 75. CURRENT INPATIENT MEDICATIONS: Reviewed by myself and remains on: - heparin drip - ceftaroline - Flagyl The remainder of medications are unchanged. His IV fluid was discontinued today myself. ASSESSMENT: 76-year-old male with a past medical history of chronic kidney disease stage III, baseline creatinine around 1.5, history of type 2 diabetes, hypertension, and atrial fibrillation, admitted with left big toe gangrene secondary to left lower extremity ischemia, now with contrast induced nephropathy on chronic kidney disease stage III. PLAN: 1. Acute kidney injury on chronic kidney disease stage III, likely secondary to contrast induced nephropathy. The patient is now 72 hours status post contrast. His creatinine peaked a 2.1 and today has slightly improved to 1.9. Due to significant lower extremity edema, at this point I will discontinue the IV fluids. The patient is tolerating oral intake. He complains of urinary hesitation and groin swelling. We will have the patient void and then straight catheterize for check for retention. Bladder scan at the bedside yesterday showed 100 mL of urine. 2. Gangrene of left big toe. The patient continues on IV ceftaroline renally dosed 400 mg every 12 hours and Flagyl. The timing of his acute kidney injury is consistent with contrast induced nephropathy and does not seem to be cephalosporin related interstitial nephritis. He has no significant eosinophilia. At this point, okay to continue with ceftaroline. I have spoken with Dr. Vicente regarding holding further contrast studies for another 24 hours. If his creatinine and urine output improve further tomorrow, then we can go ahead with a second angiogram with fluids pre and post contrast and minimize the amount of contrast. We will see what the lab work in the next 24 hours shows off of IV fluids. Risk of further acute kidney injury with the second contrast study was discussed with the patient this morning. 3. Iron deficiency anemia. The patient is on oral iron. Hemoglobin is stable in the 8s. No IV iron at this time. 4. Hypertension. Blood pressure remains acceptable on metoprolol and amlodipine. 5. Diabetes. Fingersticks are well controlled. The patient is on insulin. 6. Atrial fibrillation. The patient remains on heparin drip and rate controlled with Toprol. Plan of care discussed with the patient, his family and the nurse at bedside. ROSLYN
[2017-07-28] MEDS: CEFTAROLINE FOSAMIL 400 MG in D5W 50 ML IV SCH (12:03)
[2017-07-28 14:00] VITALS: BP 132/61
[2017-07-28] MEDS ORDERED: HumaLOG INSULIN (NovoLOG) PER UNIT SC ONE (14:15)
--- NOTE | 2017-07-28 15:20 | IPN ---
DATE: 07/28/2017 Alex is seen on my rounding for the hospitalist. Dr. Luo saw him this morning, asked that the angiogram be deferred for now until renal function has improved. He plans a postvoid residual and may well keep urinary catheter in. He is having no chest pain or shortness of breath. Medical problems are stable. PHYSICAL EXAM: 114/54, pulse 61, respiratory rate 20, 98% oxygen saturation. LUNGS: Clear. HEART: Regular rate and rhythm. ABDOMEN: Soft, nontender. Has 1+ peripheral edema in the arms and legs. LABS: Hemoglobin is 8.8, BUN 46, creatinine 1.9. IMPRESSION: 1. Left great toe gangrene. Recommend continuing the ceftaroline and metronidazole for now. Per view of nephrology notes, they recommend continuing this as well. 2. Diabetes. Sliding scale coverage. Blood sugars are occasionally borderline hypoglycemic. He has hypoglycemia protocol ordered. 3. Hyperlipidemia. Continue with simvastatin 10 mg daily. 4. Hypertension. Blood pressure is under good control. 5. Chronic kidney disease. Per nephrology. 6. Anemia. Hemoglobin is stable. 7. Paroxysmal atrial fibrillation. Rate is controlled on metoprolol XL and digoxin. Anticoagulants on hold until need for surgery is determined.
[2017-07-28] MEDS: AMPICILLIN SOD/SULBACTAM SOD 3 GM in D5W MINI-BAG PLUS 100 ML IV SCH ×2 (16:00→23:22)
[2017-07-28] MEDS: HEPARIN DRIP 25,000 UNITS in APPROPRIATE DILUENT 1 EA IV SCH (16:03)
[2017-07-28 18:00] VITALS: BP 132/60
[2017-07-28] MEDS: SIMVASTATIN 10 MG TAB PO SCH (20:25)
[2017-07-28 22:00] VITALS: BP 129/62
[2017-07-29 02:00] VITALS: BP 110/54
[2017-07-29] MEDS: AMPICILLIN SOD/SULBACTAM SOD 3 GM in D5W MINI-BAG PLUS 100 ML IV SCH ×2 (04:49→13:14)
[2017-07-29 06:00] VITALS: BP 108/54
[2017-07-29 06:17] LABS: BASO # 0.1 10^3/uL (0.0-0.2); BASO % 0.9 % (0.0-1.0); EOS # 0.2 10^3/uL (0.0-0.50); EOS % 1.9 % (0.0-3.0); IMMATURE GRANULOCYTE % 2.3 % (0-0); LYMPH # 0.6 10^3/uL (1.5-4.5); LYMPH % 6.8 % (24.0-44.0); MEAN CORPUSCULAR HEMOGLOBIN 27.7 pg (27.0-33.0); MEAN CORPUSCULAR HGB CONC 31.3 g/dl (32.0-36.5); MEAN CORPUSCULAR VOLUME 88.6 fl (80.0-96.0); MONO # 0.8 10^3/uL (0.0-0.8); MONO % 8.8 % (0.0-5.0); NEUTROPHILS # 7.2 10^3/uL (1.8-7.7); NEUTROPHILS % 79.3 % (36.0-66.0); PLATELET COUNT, AUTOMATED 194 10^3/uL (150-450); RED CELL DISTRIBUTION WIDTH 17.1 % (11.5-14.5); WHITE BLOOD COUNT 9.1 10^3/uL (4.0-10.0)
[2017-07-29 06:21] LABS: INR 1.9
[2017-07-29 06:33] LABS: CALCIUM LEVEL 8.5 MG/DL (8.8-10.2); CREATININE FOR GFR 1.81 MG/DL (0.70-1.30); GLOMERULAR FILTRATION RATE 38.9 (>42); POTASSIUM SERUM 4.6 MEQ/L (3.5-5.1)
[2017-07-29] MEDS ORDERED: amLODIPine 5 MG TAB PO SCH (09:00)
[2017-07-29 09:15] VITALS: BP 98/72
[2017-07-29] MEDS: HumaLOG INSULIN (NovoLOG) PER UNIT SC SCH ×2 (09:22→13:12)
[2017-07-29 09:35] VITALS: BP 98/72
[2017-07-29] MEDS: METOPROLOL SUCC (TopROL XL) 50MG **XL** TAB PO SCH (09:35)
[2017-07-29] MEDS: DIGOXIN 0.125 MG TAB PO SCH (09:35)
[2017-07-29] MEDS: FERROUS SULFATE 325MG TAB PO SCH (10:04)
[2017-07-29] MEDS: SENOKOT S TAB PO SCH (10:05)
[2017-07-29] MEDS: LEVEMIR (INSULIN DETEMIR) 1 UNITS/0.01ML SC SCH (10:06)
[2017-07-29] MEDS: EUCERIN 120GM CREAM TOP SCH (10:07)
--- NOTE | 2017-07-29 11:36 | IPNPDOC ---
Date Seen The patient was seen on 07/29/17. Progress Note SUBJECTIVE: Patient is without complaints. OBJECTIVE PHYSICAL EXAMINATION: VITAL SIGNS: Please see below. GENERAL: Lying in bed comfortably HEENT: Normal CARDIOVASCULAR: Irregularly irregular. RESPIRATORY: Clear to auscultation bilaterally. ABDOMINAL: Soft nontender nondistended EXTREMITIES: Left foot cellulitis is resolving. Ulcer on the tip of the left first toe is dry and stable. NEUROLOGICAL: Awake alert oriented 3 PSYCHOLOGICAL: Normal LABORATORY DATA: Please see below. MICROBIOLOGY: Please see below. IMAGING: Left lower extremity angiogram showing near occlusive superficial femoral arterial stenosis and severe tibial peroneal arterial occlusive disease. DVT prophylaxis ordered?: Patient currently on heparin drip. 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 Patient had acute renal failure status post his angiogram. Patient's left foot is stable and at this point there is no urgency to perform a repeat left lower extremity angiogram with intervention due to his recent acute renal failure. PROBLEMS: 1. Left lower extremity atherosclerotic arterial occlusive disease and left first toe ulcer: The cellulitis is resolving and his foot is nearly normal and at this point there is no urgency to perform the left lower extremity angiogram with intervention. Patient may be discharged home on by mouth antibiotics and will be scheduled for a left lower extremity angiogram with possible angioplasty and/or stenting as an outpatient in 7-10 days. Patient will have a BMP 2-3 days prior to his scheduled angiogram to ensure his renal function is stable. VS, I&O, 24H, Fishbone Vital Signs/I&O Vital Signs Date Time Temp Pulse Resp B/P (MAP) Pulse Ox O2 Delivery O2 Flow Rate FiO2 07/29/17 09:35 65 98/72 07/29/17 09:15 98.2 18 96 Room Air I&O- Last 24 Hours up to 6 AM 07/30/17 06:00 Intake Total 420 ml Output Total 0 ml Balance 420 ml Laboratory Data 24H LABS Laboratory Tests 2 07/28/17 11:35: Bedside Glucose (Misc Panel) 203H 07/28/17 13:50: Bedside Glucose (Misc Panel) 258H 07/28/17 14:24: Activated Partial Thromboplast Time 148.7*H 07/28/17 16:35: Bedside Glucose (Misc Panel) 254H 07/28/17 20:12: Bedside Glucose (Misc Panel) 167H 07/28/17 22:02: Activated Partial Thromboplast Time 58.6H 07/29/17 06:02: Activated Partial Thromboplast Time 80.1H, Immature Granulocyte % (Auto) 2.3H, White Blood Count 9.1, Red Blood Count 3.25L, Hemoglobin 9.0L, Hematocrit 28.8L , Mean Corpuscular Volume 88.6, Mean Corpuscular Hemoglobin 27.7, Mean Corpuscular Hemoglobin Concent 31.3L, Red Cell Distribution Width 17.1H, Platelet Count 194, Neutrophils (%) (Auto) 79.3H, Lymphocytes (%) (Auto) 6.8L, Monocytes (%) (Auto) 8.8H, Eosinophils (%) (Auto) 1.9, Basophils (%) (Auto) 0.9 , Neutrophils # (Auto) 7.2, Lymphocytes # (Auto) 0.6L, Monocytes # (Auto) 0.8, Eosinophils # (Auto) 0.2, Basophils # (Auto) 0.1, Immature Granulocyte # (Auto) 0.2H, Nucleated Red Blood Cells % (auto) 0.0, Prothrombin Time 22.4H, Prothromb Time International Ratio 1.90, Anion Gap 7L, Glomerular Filtration Rate 38.9L, Blood Urea Nitrogen 44H, Creatinine 1.81H, Sodium Level 138, Potassium Level 4.6 , Chloride Level 109H, Carbon Dioxide Level 22, Calcium Level 8.5L CBC/BMP Laboratory Tests 07/29/17 06:02 Red Blood Count 3.25 L, Mean Corpuscular Volume 88.6, Mean Corpuscular Hemoglobin 27.7, Mean Corpuscular Hemoglobin Concent 31.3 L, Red Cell Distribution Width 17.1 H, Neutrophils (%) (Auto) 79.3 H, Lymphocytes (%) (Auto ) 6.8 L, Monocytes (%) (Auto) 8.8 H, Eosinophils (%) (Auto) 1.9, Basophils (%) ( Auto) 0.9, Neutrophils # (Auto) 7.2, Lymphocytes # (Auto) 0.6 L, Monocytes # ( Auto) 0.8, Eosinophils # (Auto) 0.2, Basophils # (Auto) 0.1, Calcium Level 8.5 L Microbiology Microbiology 07/21/17 Blood Culture - Final, Complete NO GROWTH AFTER 5 DAYS 07/21/17 Blood Culture - Final, Complete NO GROWTH AFTER 5 DAYS 07/29/17 Stool Occult Blood (ADI) - Final, Complete 07/28/17 Stool Occult Blood (ADI) - Final, Complete 07/21/17 Gram Stain - Final, Complete 07/21/17 Wound Culture - Final, Complete Streptococcus Group G Corynebacterium Species Aj Vicente MD Jul 29, 2017 11:36
[2017-07-29] MEDS ORDERED: SODIUM CHLORIDE 0.9% 1000 ML IV ONE (12:00)
[2017-07-29] MEDS ORDERED: AUGM875T28 PO (12:16)
--- NOTE | 2017-07-29 13:32 | IPN ---
DATE: 07/29/2017 SUBJECTIVE: The patient is seen this morning at the bedside. His is present. He had a Schuler catheter placed yesterday due to penile and scrotal edema with urinary hesitation. He continues to have peripheral edema and remains off of IV fluids at this time. His creatinine mildly improved to 1.8 today and he is tolerating oral intake without issue. His blood pressure was borderline this morning and his amlodipine has been discontinued. REVIEW OF SYSTEMS: Positive for lower extremity pitting edema, scrotal edema, penile edema. Negative for chest pain, palpitations, shortness of breath, nausea, vomiting, abdominal pain, diarrhea. Remainder of review of systems is negative. OBJECTIVE: Temperature 98.2, pulse 65, blood pressure 98/72, saturating 96% on room air. Intake 1990 mL and urine output yesterday 750 mL. Weight on the bed scale today 122 kg, decreased from 122.4 kg yesterday. GENERAL: The patient is awake, alert, oriented times four, sitting in bed in no acute distress. is present at the bedside. The patient is in good spirits. HEAD/NECK: Extraocular muscles are intact. Pupils are round and reactive. Mucous membranes are moist. There is no jugular venous distention (JVD). CARDIOVASCULAR: Irregular heart sounds. Radial pulse 2+. Lower extremities with pitting edema present to the hip and unchanged from yesterday. RESPIRATORY: Lungs are clear to auscultation bilaterally. No rales or rhonchi. The patient is on room air. ABDOMEN: Soft, obese, nontender. GENITOURINARY: Schuler catheter present with dark urine. Scrotal and penile edema present. MUSCULOSKELETAL: Lower extremity in dressings. There is a foul odor coming from the left foot. CENTRAL NERVOUS SYSTEM (LOCOMOTIVE CRANE ENGINEER): No focal neurological deficit. PSYCHIATRIC: Appropriate mood and affect. LABORATORY DATA: Sodium 138, potassium 4.6, bicarbonate 22, creatinine 1.8, hemoglobin 9.1, platelets 194. WBC 9. INPATIENT MEDICATIONS: Reviewed by myself: The patient's ceftaroline and Flagyl were discontinued by the primary team and he was started on ampicillin. I have discontinued his amlodipine. The remainder of medications are unchanged from prior. ASSESSMENT: 76-year-old male with a past medical history of chronic kidney disease stage III with baseline creatinine around 1.5, history of type 2 diabetes, hypertension, and atrial fibrillation admitted with left big toe gangrene secondary to left lower extremity ischemia, now with contrast induced nephropathy on chronic kidney disease stage III and pending second contrast procedure. PLAN: 1. Acute kidney injury on chronic kidney disease stage III, likely contrast induced nephropathy. The patient's creatinine is down trending to 1.8 today. He remains hypervolemic on exam and off of IV fluids. He remains at risk for repeat acute kidney injury and contrast induced nephropathy from a second angiogram, which was discussed with him today at the bedside. We will give a total of 500 mL of normal saline pre and post contrast to minimize recurrent contrast induced nephropathy - due to his hypervolemia IVF needs to be minimized. 2. Gangrene of left big toe. Per primary team, his IV ceftaroline and Flagyl were discontinued. Instead, he is now on maximal dose of Unasyn per primary team. If his renal function deteriorates, his antibiotic dose will need to be reduced. 3. Hypervolemia. The patient remains comfortable on room air. He does have significant lower extremity edema. No diuretics at this time. No standing IV fluid. Will give a total of 500 mL normal saline pre and post contrast. 4. Hypertension. Blood pressure is soft. Discontinue amlodipine at this time and continue metoprolol. His home valsartan and hydrochlorothiazide remain on hold at this time. 5. Atrial fibrillation. The patient remains on Toprol, heparin drip and digoxin. MTDD
--- NOTE | 2017-07-29 14:42 | DS.PDOC ---
Discharge Summary General Date of Admission Jul 22, 2017 at 00:23 Date of Discharge 07/29/17 Specialist/Consultants Involve Dr. Vicente of Vascular Surgery, Dr. Luo of Nephrology Discharge Summary PROCEDURES PERFORMED DURING STAY: None. 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 HISTORY OF PRESENT ILLNESS: . 76-year-old male with past medical history of diabetes, CKD stage III, atrial fibrillation on Coumadin, peripheral vascular disease, chronic bilateral venous stasis, hypertension, multiple myeloma status post stem cell transplant, dyslipidemia, and chronic lower extremity edema and presents to the ER with a chief complaint of increased swelling and tenderness of the big toe on the left foot. The patient states that the nail bed of the toe came off approximately 5 days prior, and his toe began to become increasingly black with surrounding redness of the foot. The patient presents to the ER for further evaluation and management. In the ER, an x-ray of the toe revealed no lytic, blastic, or destructive skeletal changes. However, given the patient's surrounding cellulitic changes, the patient was started on empiric antibiotic therapy and admitted to the hospitalist service. During hospitalization, the patient was continued on IV antibiotic therapy. In addition, the patient was evaluated by vascular surgery. The patient was sent for an angiogram of the left lower extremity and was found to have severe atherosclerotic arterial occlusive disease in the left superficial femoral and tibial peroneal vessels. The patient did develop acute on chronic kidney injury following the angiogram, and was subsequently treated with IV fluid hydration, and nephrotoxic medications were held. Nephrology was consulted. The patient's serum creatinine has trended back down towards his baseline. However, there were plans to have an additional lower extremity angiogram done to evaluate for possible vascular intervention. However, given the patient's unstable renal function, and the subsequent improvement of the patient's left first toe ulcer and surrounding cellulitis, it has been decided the patient can follow-up as an outpatient with Dr. Vicente vascular surgery in 7-10 days for a follow-up angiogram as an outpatient. We will transition the patient's IV antibiotics to oral Augmentin, to be completed on an outpatient basis. I have advised the patient to follow-up with his primary care physician within 7 days, and vascular surgery within 7-10 days as well. In addition, the patient has also been advised to follow-up with nephrology in 2-4 weeks. He has been consulted to return to the ER for any acute emergencies. DISCHARGE MEDICATIONS: Please see below. ALLERGIES: Please see below. PHYSICAL EXAMINATION ON DISCHARGE: VITAL SIGNS: Please see below. GENERAL: Awake, alert, in no acute distress HEENT: Normocephalic, atraumatic NECK: No JVD CARDIOVASCULAR EXAMINATION: Normal rate, normal S1, S2 RESPIRATORY EXAMINATION: Clear to auscultation bilaterally ABDOMINAL EXAMINATION: Soft, nontender, nondistended EXTREMITIES: Ulcer noted at the tip of the left first toe. Wrapped in surgical dressing. No tenderness to the foot on palpation. LABORATORY DATA: Please see below. IMAGING: LEFT LOWER EXTREMITY DUPLEX DOPPLER ARTERIAL ULTRASOUND: Real-time ultrasound evaluation and duplex Doppler interrogation of the left lower extremity arterial system is performed. Significant plaquing is seen throughout the left lower extremity arterial system. Luminal narrowing visually at the origin of the left superficial femoral artery is approximately 50% with the lumen decreasing in diameter from 8 mm to 4 mm. Triphasic waveforms are seen proximal to this level with monophasic waveforms distal to this level. Peak systolic velocity of the left common femoral artery is 100 cm/s, profunda 170 cm/s, and proximal superficial femoral artery 64 cm/s. Distal superficial femoral artery demonstrates increased velocity at 103 cm/s with significant plaque and narrowing. Severe plaquing and narrowing is seen of the popliteal artery. Peak systolic velocity 56 cm/s. There appears to be a collateral artery along the origin of the anterior tibial artery. Severe plaquing and narrowing is seen of the distal anterior tibial artery with very slow flow. Peak systolic velocity proximally in the anterior tibial artery is 35 cm/s and distally 8 cm/s. Distal posterior tibial artery is not visualized. It is very thin proximally with a peak systolic velocity of 38 cm/s. Incidental note is made of multiple dilated venous structures in the ankle near a skin ulcer raising the possibility of venous stasis pathology. PROGNOSIS: Fair ACTIVITY: As tolerated. DIET: . 2 g low sodium diet DISCHARGE PLAN: DISPOSITION: . Home DISCHARGE INSTRUCTIONS: 1. . Follow-up with primary care physician within 7 days 2. . Follow-up with vascular surgery within 7-10 days 3. . Follow with nephrology within 2-4 weeks ITEMS TO FOLLOWUP ON ON OUTPATIENT: 1. . Hold hydrochlorothiazide and valsartan until seen by PCP 2. . Repeat INR within 3 days, complete antibiotic trial as prescribed 3. . Return to the ER for any acute emergencies DISCHARGE CONDITION: Stable. TIME SPENT ON DISCHARGE: Greater than 30 minutes. Vital Signs/I&Os Vital Signs Date Time Temp Pulse Resp B/P (MAP) Pulse Ox O2 Delivery O2 Flow Rate FiO2 07/29/17 09:35 65 98/72 07/29/17 09:15 98.2 18 96 Room Air I&O- Last 24 Hours up to 6 AM 07/30/17 05:59 Intake Total 636 ml Output Total 250 ml Balance 386 ml Laboratory Data Labs 24H Laboratory Tests 2 07/28/17 16:35: Bedside Glucose (Misc Panel) 254H 07/28/17 20:12: Bedside Glucose (Misc Panel) 167H 07/28/17 22:02: Activated Partial Thromboplast Time 58.6H 07/29/17 06:02: Activated Partial Thromboplast Time 80.1H, Immature Granulocyte % (Auto) 2.3H, White Blood Count 9.1, Red Blood Count 3.25L, Hemoglobin 9.0L, Hematocrit 28.8L , Mean Corpuscular Volume 88.6, Mean Corpuscular Hemoglobin 27.7, Mean Corpuscular Hemoglobin Concent 31.3L, Red Cell Distribution Width 17.1H, Platelet Count 194, Neutrophils (%) (Auto) 79.3H, Lymphocytes (%) (Auto) 6.8L, Monocytes (%) (Auto) 8.8H, Eosinophils (%) (Auto) 1.9, Basophils (%) (Auto) 0.9 , Neutrophils # (Auto) 7.2, Lymphocytes # (Auto) 0.6L, Monocytes # (Auto) 0.8, Eosinophils # (Auto) 0.2, Basophils # (Auto) 0.1, Immature Granulocyte # (Auto) 0.2H, Nucleated Red Blood Cells % (auto) 0.0, Prothrombin Time 22.4H, Prothromb Time International Ratio 1.90, Anion Gap 7L, Glomerular Filtration Rate 38.9L, Blood Urea Nitrogen 44H, Creatinine 1.81H, Sodium Level 138, Potassium Level 4.6 , Chloride Level 109H, Carbon Dioxide Level 22, Calcium Level 8.5L 07/29/17 09:20: Bedside Glucose (Misc Panel) 248H 07/29/17 12:09: Activated Partial Thromboplast Time 75.9H CBC/BMP Laboratory Tests 07/29/17 06:02 Red Blood Count 3.25 L, Mean Corpuscular Volume 88.6, Mean Corpuscular Hemoglobin 27.7, Mean Corpuscular Hemoglobin Concent 31.3 L, Red Cell Distribution Width 17.1 H, Neutrophils (%) (Auto) 79.3 H, Lymphocytes (%) (Auto ) 6.8 L, Monocytes (%) (Auto) 8.8 H, Eosinophils (%) (Auto) 1.9, Basophils (%) ( Auto) 0.9, Neutrophils # (Auto) 7.2, Lymphocytes # (Auto) 0.6 L, Monocytes # ( Auto) 0.8, Eosinophils # (Auto) 0.2, Basophils # (Auto) 0.1, Calcium Level 8.5 L FSBS Laboratory Tests Test 07/28/17 16:35 07/28/17 20:12 07/29/17 09:20 Range/Units Bedside Glucose (Misc Panel) 254 167 248 83-110 MG/DL Microbiology Microbiology 07/21/17 Blood Culture - Final, Complete NO GROWTH AFTER 5 DAYS 07/21/17 Blood Culture - Final, Complete NO GROWTH AFTER 5 DAYS 07/29/17 Stool Occult Blood (ADI) - Final, Complete 07/28/17 Stool Occult Blood (ADI) - Final, Complete 07/21/17 Gram Stain - Final, Complete 07/21/17 Wound Culture - Final, Complete Streptococcus Group G Corynebacterium Species Discharge Medications Scheduled Amoxicillin/Clavulanate Potas (Augmentin 875-125 mg) 1 Tab Tab, 875 MG PO BID Digoxin (Digoxin) 0.125 Mg Tab, 0.125 MG PO DAILY, (Reported) Insulin Detemir (Levemir) 1 Units/0.01 Ml Susp, 16 UNITS SC BID, (Reported) Insulin Human Lispro (Humalog Kwikpen) 100 Unit/Ml Inj, 1 DOSE SC AC, (Reported) PER SLIDING SCALE Metoprolol Succinate (Metoprolol Succinate ER) 50 Mg Tab, 50 MG PO DAILY, ( Reported) Multivitamins *[facility] STOCKED* (Thera M Plus *[facility] STOCKED*) 1 Tab Tab, 1 TAB PO DAILY, (Reported) Simvastatin (Simvastatin) 10 Mg Tab, 10 MG PO QHS, (Reported) Vitamin D (Vitamin D) 2,000 Unit Cap, 2,000 UNIT PO DAILY, (Reported) Warfarin Sod (Warfarin Sodium) 5 Mg Tab, 5 MG PO ASDIRECTED, (Reported) EVERY FRIDAY AND FRIDAY Warfarin Sod (Warfarin Sodium) 5 Mg Tab, 2.5 MG PO ASDIRECTED, (Reported) TAKES FRIDAY, FRIDAY, FRIDAY, FRIDAY AND FRIDAY Allergies Coded Allergies: No Known Allergies (Unverified , 08/31/14) RUY PUENTES MD Jul 29, 2017 14:42
[2017-07-29] MEDS ORDERED: WARFARIN SOD 5 MG TAB PO ONE (17:00)
--- NOTE | 2017-08-06 10:14 | RO ---
DATE OF PROCEDURE: 07/25/2017 PREPROCEDURE DIAGNOSIS: Left first toe ulceration and gangrene, chronic renal insufficiency. Venous insufficiency. POSTPROCEDURE DIAGNOSIS: Left first toe ulceration and gangrene, chronic renal insufficiency. Venous insufficiency. PROCEDURE: Aortogram, iliofemoral angiogram, left lower extremity angiogram, Mynx closure of the left common femoral arteriotomy, right common femoral arterial cannulation. SURGEON: Dr. Aj Vicente. FHA UNDERWRITER: Amelia Andersen. ANESTHESIA: Local with sedation with 2 mg of Versed, 100 mcg of Fentanyl and 20 mL of 2% lidocaine. SEDATION TIME: From 1630 to 1710 with the sedation administered by the RN in the room under my direct supervision and direction, the cardiopulmonary monitoring was also performed by the RN in the room under my direct supervision and direction. I was present for and directed the entire case. ESTIMATED BLOOD LOSS: COMPLICATIONS: None. DRAINS: None. SPECIMENS: None. IMPLANTS: Left common femoral arterial Mynx closure device. CONTRAST: 25 mL. HEPARIN: None. INDICATION: Patient is a 76-year-old male with a left lower extremity great toe ulceration and infection with cellulitis of the left lower extremity who has underlying venous insufficiency as well. Patient has chronic renal insufficiency. Patient will undergo an angiogram with possible angioplasty and/or stent. Risks, benefits and alternative treatment options were discussed with the patient. PROCEDURE: The patient was taken to the angiography suite and placed supine on the angiography room table and the right common femoral artery was cannulated with a micropuncture needle after anesthetizing the overlying skin with 1% lidocaine but there was inability to pass the wire through the right common femoral vein into the iliac arteries or aorta. The needle was removed and manual compression applied for hemostasis. The left common femoral artery was then cannulated with a micropuncture needle after anesthetizing the overlying skin with 1% lidocaine. A micropuncture wire was advanced through the micropuncture needle which was upsized to a micropuncture sheath. A [place] wire was advanced through the micropuncture sheath which was upsized to a 5-Romanian sheath. An Omniflush catheter was then advanced over the [place] wire, placed in the aorta and then an aortogram was performed. Catheter was pulled down to the level of the bifurcation of the iliac arteries and a left lower extremity angiogram was then performed through the left common femoral sheath showing superficial femoral arterial occlusion and severe tibioperoneal arterial occlusive disease. The catheter wires were then removed. The sheath was removed and a Mynx closure device was used to close the arteriotomy and the left common femoral artery with adjunctive pressure applied for 10 minutes for additional hemostasis. Dressings were then applied. Patient tolerated the procedure well. All instrument, sponge and needle counts were correct at the end of the case. There were no complications. Dr. Vicente was present for and directed the entire case. Patient was transferred to the holding area and subsequently to the floor in stable condition. RADIOLOGIC SUPERVISION INTERPRETATION: The aortogram showed the aorta and renal arteries to be widely patent as well as the superior mesentery and celiac arteries. The infrarenal aorta was calcified but patent. The common iliac, external and internal iliac arteries were widely patent. The right common femoral artery was widely patent as well as the proximal superficial femoral and profunda femoris artery. There was no visualization of the right lower extremity below the puncture site. The left lower extremity showed the common femoral and superficial femoral artery to be patent. The superficial femoral artery occluded in the mid thigh region and reconstituted via collaterals and there was severe tibioperoneal arterial occlusive disease distally. Due to the patient's chronic renal insufficiency, no intervention was performed and the patient will return at a later date for intervention with attempts at revascularization of the superficial femoral and tibioperoneal arteries.
[2017-08-28] MEDS ORDERED: BUME1TAB29 PO (19:33)
[2017-08-28] MEDS ORDERED: FERR325T3 PO (22:33)
[2017-08-28] MEDS ORDERED: POTA20TA PO (22:33)
[2017-08-28] MEDS ORDERED: FLOM5CAP PO (22:33)
[2017-09-08] MEDS ORDERED: NYST10PW TOP (05:49)
[2017-09-08] MEDS ORDERED: PEG1POW PO (05:49)
[2017-09-08] MEDS ORDERED: BUME1TAB27 PO (15:13)
== END 2017-07-29 16:20 | disposition home health service (06) | DRG 301 ==
LOC: M ED 19:01 → M ED INP 07-22 00:23 → M MSPAV 07-22 01:11
PROVIDERS: ADMIT Internal Medicine Nephrology; ATTEND Internal Medicine
DX: I70.202 Unspecified atherosclerosis of native arteries of extremities, left leg (principal); N18.3 Chronic kidney disease, stage 3 (moderate); N14.2 Nephropathy induced by unspecified drug, medicament or biological substance; L03.032 Cellulitis of left toe; E11.9 Type 2 diabetes mellitus without complications; E78.5 Hyperlipidemia, unspecified; D63.8 Anemia in other chronic diseases classified elsewhere; I48.0 Paroxysmal atrial fibrillation; I12.9 Hypertensive chronic kidney disease with stage 1 through stage 4 chronic kidney disease, or unspecified chronic kidney disease; E78.00 Pure hypercholesterolemia, unspecified; Z86.718 Personal history of other venous thrombosis and embolism; I83.025 Varicose veins of left lower extremity with ulcer other part of foot; I83.015 Varicose veins of right lower extremity with ulcer other part of foot; Z79.4 Long term (current) use of insulin; Z79.01 Long term (current) use of anticoagulants; Z79.899 Other long term (current) drug therapy

== ENCOUNTER → 2017-07-31 | Outpatient (CLI) | payer MEDICARE ==
[~2017-07-31] MED LIST changes: +BUME1TAB27 PO; +BUME1TAB29 PO; +FERR325T3 PO; +FLOM5CAP PO; +INSUDET SC; +NYST10PW TOP; +PEG1POW PO; +POTA20TA PO; +VALS160T3 PO; +VITA200016 PO; +VITMTA PO
[2017-07-31 17:46] LABS: MEAN CORPUSCULAR HEMOGLOBIN 26.9 pg (27.0-33.0); MEAN CORPUSCULAR HGB CONC 30.3 g/dl (32.0-36.5); MEAN CORPUSCULAR VOLUME 88.6 fl (80.0-96.0); RED CELL DISTRIBUTION WIDTH 17.3 % (11.5-14.5); WHITE BLOOD COUNT 8.2 10^3/uL (4.0-10.0)
[2017-07-31 17:54] LABS: INR 2.38
[2017-07-31 17:57] LABS: CALCIUM LEVEL 8.9 MG/DL (8.8-10.2); CREATININE FOR GFR 1.39 MG/DL (0.70-1.30); GLOMERULAR FILTRATION RATE 52.6 (>42); POTASSIUM SERUM 4.6 MEQ/L (3.5-5.1)
== END ==
LOC: M SMT 15:01
PROVIDERS: ATTEND Urology
DX: R33.9 Retention of urine, unspecified (principal); I48.0 Paroxysmal atrial fibrillation
CPT/HCPCS: 36415; 80048; 85027; 85610; G0463

== ENCOUNTER → 2017-08-05 | Outpatient (REF) | payer MEDICARE | LOC: M LAB REF 17:23 | PROVIDERS: ATTEND Internal Medicine Nephrology | DX: D50.9 Iron deficiency anemia, unspecified (principal) ==

== ENCOUNTER 2017-08-28 19:12 | Inpatient (IN) | payer MEDICARE ==
[2017-08-28 21:17] LABS: BASO # 0.1 10^3/uL (0.0-0.2); BASO % 0.3 % (0.0-1.0); EOS % 0.1 % (0.0-3.0); IMMATURE GRANULOCYTE # 0.2 10^3/uL (0-0); LYMPH # 0.4 10^3/uL (1.5-4.5); LYMPH % 1.7 % (24.0-44.0); MEAN CORPUSCULAR HEMOGLOBIN 26.2 pg (27.0-33.0); MEAN CORPUSCULAR VOLUME 84.6 fl (80.0-96.0); MONO # 0.9 10^3/uL (0.0-0.8); MONO % 4.1 % (0.0-5.0); NEUTROPHILS # 21.4 10^3/uL (1.8-7.7); NEUTROPHILS % 92.8 % (36.0-66.0); PLATELET COUNT, AUTOMATED 227 10^3/uL (150-450); RED CELL DISTRIBUTION WIDTH 17.7 % (11.5-14.5)
[2017-08-28 21:28] LABS: INR 4.09
[2017-08-28] MEDS: VANCOMYCIN HCL 750 MG, VIAL MATE ADAPTER 1 EACH in D5W 250 ML IV (21:30)
[2017-08-28] MEDS: IMIPENEM/CILASTATIN 250 MG in D5W MINI-BAG PLUS 100 ML IV (21:30)
[2017-08-28 21:42] LABS: LACTIC ACID SEPSIS PROTOCOL 1.5 MMOL/L (0.4-2.0)
[2017-08-28 21:53] LABS: ANION GAP 6 MEQ/L (8-16); BLOOD UREA NITROGEN 28 MG/DL (7-18); CALCIUM LEVEL 8.9 MG/DL (8.8-10.2); CARBON DIOXIDE LEVEL 28 MEQ/L (21-32); CHLORIDE LEVEL 104 MEQ/L (98-107); CREATININE FOR GFR 1.45 MG/DL (0.70-1.30); DIGOXIN LEVEL 1.1 NG/ML (0.5-2.0); GLOMERULAR FILTRATION RATE 50.1 (>42); GLUCOSE, FASTING 96 MG/DL (83-110); POTASSIUM SERUM 4.5 MEQ/L (3.5-5.1); SODIUM LEVEL 138 MEQ/L (136-145)
[2017-08-28] MEDS ORDERED: PIPERACILLIN/TAZOBACTAM SOD 3.375 GM in D5W 50 ML IV (22:30)
[2017-08-28] MEDS ORDERED: GLUCAGON FOR INJ 1 MG VIAL (J1610) SC (22:30)
[2017-08-28] MEDS ORDERED: DEXTROSE 50% 50 ML SYRINGE IV (22:30)
[2017-08-28] MEDS ORDERED: IPRATROPIUM 0.5MG/ALBUTEROL 2.5MG INH SOL UD 3ML (DUONEB)(J7620) NEB (22:30)
[2017-08-28] MEDS ORDERED: GLUCOSE 4 GM CHEW TABLET PO (22:30)
[2017-08-28] MEDS ORDERED: ONDANSETRON 4MG/2ML VIAL (J2405) IV (22:30)
[2017-08-28] MEDS ORDERED: WARFARIN SOD 5 MG TAB PO ×2 (22:45)
[2017-08-29] MEDS: PIPERACILLIN/TAZOBACTAM SOD 3.375 GM in D5W 50 ML IV ×3 (01:19→17:10)
[2017-08-29] MEDS: SIMVASTATIN 10 MG TAB PO ×2 (01:19→21:36)
[2017-08-29] MEDS: VANCOMYCIN HCL 1,000 MG, VIAL MATE ADAPTER 1 EACH in D5W 250 ML IV (05:51)
[2017-08-29] MEDS: ACETAMINOPHEN TAB 650MG DOSE (2X325MG) PO (06:11)
[2017-08-29 06:39] LABS: MEAN CORPUSCULAR HGB CONC 30.8 g/dl (32.0-36.5); MEAN CORPUSCULAR VOLUME 84.4 fl (80.0-96.0); PLATELET COUNT, AUTOMATED 227 10^3/uL (150-450); WHITE BLOOD COUNT 21.5 10^3/uL (4.0-10.0)
[2017-08-29 06:50] LABS: INR 4.66
[2017-08-29 06:56] LABS: ANION GAP 12 MEQ/L (8-16); BLOOD UREA NITROGEN 34 MG/DL (7-18); CALCIUM LEVEL 8.7 MG/DL (8.8-10.2); CARBON DIOXIDE LEVEL 22 MEQ/L (21-32); CHLORIDE LEVEL 102 MEQ/L (98-107); CREATININE FOR GFR 1.83 MG/DL (0.70-1.30); GLOMERULAR FILTRATION RATE 38.3 (>42); GLUCOSE, FASTING 187 MG/DL (83-110); SODIUM LEVEL 136 MEQ/L (136-145)
[2017-08-29 07:24] LABS: LACTIC ACID SEPSIS PROTOCOL 2.9 MMOL/L (0.4-2.0)
[2017-08-29] MEDS: SODIUM CHLORIDE 0.9% 1000 ML IV ×2 (08:05→13:33)
[2017-08-29] MEDS: VITAMIN D 1,000 INTERNATIONAL UNITS TABLET PO (08:21)
[2017-08-29] MEDS: TAMSULOSIN 0.4 MG CAP PO (08:21)
[2017-08-29] MEDS: POTASSIUM CHLORIDE 10 MEQ SR TABLET PO (08:21)
[2017-08-29] MEDS: FERROUS SULFATE 325MG TAB PO (08:22)
[2017-08-29] MEDS: MULTIVITAMINS/MINERALS THERAP 1 TAB PO (08:22)
[2017-08-29] MEDS: DOCUSATE SODIUM 100 MG CAP PO ×2 (08:22→21:36)
[2017-08-29] MEDS: DIGOXIN 0.125 MG TAB PO (08:22)
[2017-08-29] MEDS: HumaLOG INSULIN (NovoLOG) PER UNIT SC ×6 (08:23→21:00)
[2017-08-29] MEDS: METOPROLOL SUCC (TopROL XL) 50MG **XL** TAB PO (08:24)
[2017-08-29] MEDS: LEVEMIR (INSULIN DETEMIR) 1 UNITS/0.01ML SC ×2 (08:24→21:37)
[2017-08-29] MEDS ORDERED: ENTER DRUG NAME HERE (PATIENT'S OWN MED) PO (09:00)
[2017-08-29] MEDS: NS 1,000 ML IV ×2 (17:11→21:37)
[2017-08-29 19:18] LABS: TYPE AND SCREEN 1
[2017-08-29] MEDS ORDERED: LIDOCAINE 1% SDV INJ 30 ML VIAL As Ordered (20:06)
[2017-08-29] MEDS ORDERED: BUPIVACAINE HCL 0.5% 30 ML VIAL As Ordered (20:06)
[2017-08-29] MEDS ORDERED: LIDOCAINE 2% INJ 100 MG/5 ML SDV (FOR ANES.) As Ordered (20:09)
[2017-08-29] MEDS ORDERED: MIDAZOLAM INJ 2 MG/2 ML VIAL (J2250) As Ordered (20:09)
[2017-08-29] MEDS ORDERED: fentaNYL 100 MCG/2 ML INJECTION (J3010) As Ordered (20:09)
[2017-08-29] MEDS ORDERED: PROPOFOL 200 MG/20 ML VIAL As Ordered (20:09)
[2017-08-29] MEDS ORDERED: PHENYLephrine HCL 500 MCG/5 ML (100MCG/ML) SYRINGE (J2370) As Ordered (20:12)
[2017-08-30] MEDS: PIPERACILLIN/TAZOBACTAM SOD 3.375 GM in D5W 50 ML IV ×2 (00:17→09:04)
[2017-08-30] MEDS: VANCOMYCIN HCL 1,000 MG, VIAL MATE ADAPTER 1 EACH in D5W 250 ML IV ×2 (00:17→18:18)
[2017-08-30] MEDS ORDERED: ZOSYN 3.375 GM VIAL (J2543) As Ordered (00:31)
[2017-08-30 05:08] LABS: MEAN CORPUSCULAR HEMOGLOBIN 25.7 pg (27.0-33.0); MEAN CORPUSCULAR HGB CONC 30.5 g/dl (32.0-36.5); MEAN CORPUSCULAR VOLUME 84.4 fl (80.0-96.0); PLATELET COUNT, AUTOMATED 198 10^3/uL (150-450); RED CELL DISTRIBUTION WIDTH 17.7 % (11.5-14.5); WHITE BLOOD COUNT 10.7 10^3/uL (4.0-10.0)
[2017-08-30 05:21] LABS: INR 3.22
[2017-08-30 05:28] LABS: ANION GAP 8 MEQ/L (8-16); BLOOD UREA NITROGEN 38 MG/DL (7-18); CALCIUM LEVEL 8.2 MG/DL (8.8-10.2); CARBON DIOXIDE LEVEL 25 MEQ/L (21-32); CHLORIDE LEVEL 103 MEQ/L (98-107); CREATININE FOR GFR 1.78 MG/DL (0.70-1.30); GLOMERULAR FILTRATION RATE 39.5 (>42); GLUCOSE, FASTING 213 MG/DL (83-110); SODIUM LEVEL 136 MEQ/L (136-145)
[2017-08-30 05:38] LABS: POTASSIUM SERUM 3.9 MEQ/L (3.5-5.1)
[2017-08-30] MEDS: LEVEMIR (INSULIN DETEMIR) 1 UNITS/0.01ML SC ×2 (09:02→20:28)
[2017-08-30] MEDS: HumaLOG INSULIN (NovoLOG) PER UNIT SC ×4 (09:02→20:29)
[2017-08-30] MEDS: MULTIVITAMINS/MINERALS THERAP 1 TAB PO (09:03)
[2017-08-30] MEDS: TAMSULOSIN 0.4 MG CAP PO (09:03)
[2017-08-30] MEDS: DOCUSATE SODIUM 100 MG CAP PO ×2 (09:03→20:29)
[2017-08-30] MEDS: VITAMIN D 1,000 INTERNATIONAL UNITS TABLET PO (09:03)
[2017-08-30] MEDS: FERROUS SULFATE 325MG TAB PO (09:04)
[2017-08-30] MEDS: DIGOXIN 0.125 MG TAB PO (09:04)
[2017-08-30 12:16] LABS: IMMEDIATE SPIN CROSSMATCH 1 2
[2017-08-30] MEDS: FUROSEMIDE 40 MG/4 ML VIAL (J1940) IV (12:18)
[2017-08-30] MEDS: MEROPENEM INJ 1 GM in D5W MINI-BAG PLUS 100 ML IV ×2 (13:16→20:29)
[2017-08-30] MEDS: SIMVASTATIN 10 MG TAB PO (20:29)
[2017-08-31] MEDS: MEROPENEM INJ 1 GM in D5W MINI-BAG PLUS 100 ML IV ×3 (04:33→21:27)
[2017-08-31 04:40] LABS: MEAN CORPUSCULAR HEMOGLOBIN 26.6 pg (27.0-33.0); MEAN CORPUSCULAR HGB CONC 31.9 g/dl (32.0-36.5); MEAN CORPUSCULAR VOLUME 83.5 fl (80.0-96.0); PLATELET COUNT, AUTOMATED 191 10^3/uL (150-450); RED CELL DISTRIBUTION WIDTH 16.7 % (11.5-14.5); WHITE BLOOD COUNT 10.3 10^3/uL (4.0-10.0)
[2017-08-31 04:50] LABS: INR 3.34
[2017-08-31 04:57] LABS: ANION GAP 7 MEQ/L (8-16); BLOOD UREA NITROGEN 34 MG/DL (7-18); CALCIUM LEVEL 8.7 MG/DL (8.8-10.2); CARBON DIOXIDE LEVEL 26 MEQ/L (21-32); CHLORIDE LEVEL 106 MEQ/L (98-107); CREATININE FOR GFR 1.46 MG/DL (0.70-1.30); GLOMERULAR FILTRATION RATE 49.7 (>42); GLUCOSE, FASTING 150 MG/DL (83-110); POTASSIUM SERUM 3.7 MEQ/L (3.5-5.1); SODIUM LEVEL 139 MEQ/L (136-145)
[2017-08-31] MEDS: HumaLOG INSULIN (NovoLOG) PER UNIT SC ×4 (08:34→21:00)
[2017-08-31] MEDS: LEVEMIR (INSULIN DETEMIR) 1 UNITS/0.01ML SC ×2 (08:34→21:00)
[2017-08-31] MEDS: MULTIVITAMINS/MINERALS THERAP 1 TAB PO (08:35)
[2017-08-31] MEDS: TAMSULOSIN 0.4 MG CAP PO (08:35)
[2017-08-31] MEDS: DOCUSATE SODIUM 100 MG CAP PO ×2 (08:35→21:28)
[2017-08-31] MEDS: VITAMIN D 1,000 INTERNATIONAL UNITS TABLET PO (08:35)
[2017-08-31] MEDS: DIGOXIN 0.125 MG TAB PO (08:35)
[2017-08-31] MEDS: FERROUS SULFATE 325MG TAB PO (08:52)
[2017-08-31] MEDS: VANCOMYCIN HCL 1,000 MG, VIAL MATE ADAPTER 1 EACH in D5W 250 ML IV (12:16)
[2017-08-31] MEDS: FUROSEMIDE 40 MG/4 ML VIAL (J1940) IV ×2 (14:16→21:27)
[2017-08-31] MEDS: SIMVASTATIN 10 MG TAB PO (21:28)
[2017-09-01] MEDS: MEROPENEM INJ 1 GM in D5W MINI-BAG PLUS 100 ML IV ×3 (05:08→22:36)
[2017-09-01] MEDS: FUROSEMIDE 40 MG/4 ML VIAL (J1940) IV ×3 (05:56→22:36)
[2017-09-01] MEDS: VANCOMYCIN HCL 1,000 MG, VIAL MATE ADAPTER 1 EACH in D5W 250 ML IV (05:56)
[2017-09-01 06:58] LABS: MEAN CORPUSCULAR HEMOGLOBIN 26.7 pg (27.0-33.0); MEAN CORPUSCULAR HGB CONC 31.5 g/dl (32.0-36.5); MEAN CORPUSCULAR VOLUME 84.9 fl (80.0-96.0); PLATELET COUNT, AUTOMATED 181 10^3/uL (150-450); RED CELL DISTRIBUTION WIDTH 17.1 % (11.5-14.5); WHITE BLOOD COUNT 7.6 10^3/uL (4.0-10.0)
[2017-09-01 07:21] LABS: ANION GAP 8 MEQ/L (8-16); BLOOD UREA NITROGEN 30 MG/DL (7-18); CALCIUM LEVEL 8.5 MG/DL (8.8-10.2); CARBON DIOXIDE LEVEL 26 MEQ/L (21-32); CHLORIDE LEVEL 104 MEQ/L (98-107); CREATININE FOR GFR 1.27 MG/DL (0.70-1.30); GLOMERULAR FILTRATION RATE 58.4 (>42); GLUCOSE, FASTING 229 MG/DL (83-110); POTASSIUM SERUM 3.7 MEQ/L (3.5-5.1); SODIUM LEVEL 138 MEQ/L (136-145)
[2017-09-01] MEDS ORDERED: MOM 30ML SUSPENSION UDC PO (08:30)
[2017-09-01] MEDS: HumaLOG INSULIN (NovoLOG) PER UNIT SC ×4 (09:18→21:58)
[2017-09-01] MEDS: VITAMIN D 1,000 INTERNATIONAL UNITS TABLET PO (09:18)
[2017-09-01] MEDS: MULTIVITAMINS/MINERALS THERAP 1 TAB PO (09:18)
[2017-09-01] MEDS: LEVEMIR (INSULIN DETEMIR) 1 UNITS/0.01ML SC ×2 (09:19→21:56)
[2017-09-01] MEDS: DOCUSATE SODIUM 100 MG CAP PO ×2 (09:19→21:51)
[2017-09-01] MEDS: DIGOXIN 0.125 MG TAB PO (09:19)
[2017-09-01] MEDS: TAMSULOSIN 0.4 MG CAP PO (09:19)
[2017-09-01] MEDS: FERROUS SULFATE 325MG TAB PO (09:19)
[2017-09-01] MEDS: POTASSIUM CHLORIDE 10 MEQ SR TABLET PO (11:05)
[2017-09-01 16:45] LABS: ALBUMIN 2.4 GM/DL (3.2-5.2); ALBUMIN/GLOBULIN RATIO 0.67 (1.00-1.93); ALKALINE PHOSPHATASE 110 U/L (45-117); ALT/SGPT 21 U/L (12-78); AST/SGOT 25 U/L (7-37); BILIRUBIN,DIRECT 0.7 MG/DL (0.0-0.2); BILIRUBIN,TOTAL 1.2 MG/DL (0.2-1.0)
[2017-09-01] MEDS ORDERED: SENOKOT S TAB PO (20:30)
[2017-09-01] MEDS ORDERED: MIRALAX *UNIT DOSE* 17GM PACKET PO (20:30)
[2017-09-01] MEDS: SIMVASTATIN 10 MG TAB PO (21:51)
[2017-09-02] MEDS: FUROSEMIDE 40 MG/4 ML VIAL (J1940) IV ×3 (06:41→21:33)
[2017-09-02] MEDS: MEROPENEM INJ 1 GM in D5W MINI-BAG PLUS 100 ML IV ×3 (06:41→21:33)
[2017-09-02 07:17] LABS: MEAN CORPUSCULAR HEMOGLOBIN 26.3 pg (27.0-33.0); MEAN CORPUSCULAR HGB CONC 31.4 g/dl (32.0-36.5); MEAN CORPUSCULAR VOLUME 83.8 fl (80.0-96.0); PLATELET COUNT, AUTOMATED 211 10^3/uL (150-450); RED CELL DISTRIBUTION WIDTH 17.3 % (11.5-14.5)
[2017-09-02 07:26] LABS: INR 2.22
[2017-09-02 07:43] LABS: ANION GAP 5 MEQ/L (8-16); BLOOD UREA NITROGEN 28 MG/DL (7-18); CALCIUM LEVEL 9.1 MG/DL (8.8-10.2); CARBON DIOXIDE LEVEL 31 MEQ/L (21-32); CHLORIDE LEVEL 103 MEQ/L (98-107); CREATININE FOR GFR 1.22 MG/DL (0.70-1.30); GLOMERULAR FILTRATION RATE > 60.0 (>42); GLUCOSE, FASTING 151 MG/DL (83-110); POTASSIUM SERUM 3.8 MEQ/L (3.5-5.1); SODIUM LEVEL 139 MEQ/L (136-145)
[2017-09-02] MEDS: LEVEMIR (INSULIN DETEMIR) 1 UNITS/0.01ML SC ×2 (09:00→21:00)
[2017-09-02] MEDS: HumaLOG INSULIN (NovoLOG) PER UNIT SC ×4 (09:28→20:22)
[2017-09-02] MEDS: DOCUSATE SODIUM 100 MG CAP PO ×2 (09:28→21:33)
[2017-09-02] MEDS: FERROUS SULFATE 325MG TAB PO (09:29)
[2017-09-02] MEDS: VITAMIN D 1,000 INTERNATIONAL UNITS TABLET PO (09:29)
[2017-09-02] MEDS: MULTIVITAMINS/MINERALS THERAP 1 TAB PO (09:29)
[2017-09-02] MEDS: TAMSULOSIN 0.4 MG CAP PO (09:29)
[2017-09-02] MEDS: DIGOXIN 0.125 MG TAB PO (09:31)
[2017-09-02] MEDS: SIMVASTATIN 10 MG TAB PO (21:33)
[2017-09-03] MEDS: MEROPENEM INJ 1 GM in D5W MINI-BAG PLUS 100 ML IV ×3 (05:22→21:39)
[2017-09-03] MEDS: FUROSEMIDE 40 MG/4 ML VIAL (J1940) IV ×3 (05:23→21:38)
[2017-09-03 07:09] LABS: MEAN CORPUSCULAR HEMOGLOBIN 26.3 pg (27.0-33.0); MEAN CORPUSCULAR HGB CONC 31.4 g/dl (32.0-36.5); MEAN CORPUSCULAR VOLUME 83.9 fl (80.0-96.0); PLATELET COUNT, AUTOMATED 190 10^3/uL (150-450); RED CELL DISTRIBUTION WIDTH 17.4 % (11.5-14.5); WHITE BLOOD COUNT 9.3 10^3/uL (4.0-10.0)
[2017-09-03 07:22] LABS: INR 2.07
[2017-09-03 07:43] LABS: ANION GAP 6 MEQ/L (8-16); BLOOD UREA NITROGEN 25 MG/DL (7-18); CALCIUM LEVEL 8.5 MG/DL (8.8-10.2); CARBON DIOXIDE LEVEL 32 MEQ/L (21-32); CHLORIDE LEVEL 102 MEQ/L (98-107); CREATININE FOR GFR 1.18 MG/DL (0.70-1.30); GLOMERULAR FILTRATION RATE > 60.0 (>42); GLUCOSE, FASTING 153 MG/DL (83-110); POTASSIUM SERUM 3.5 MEQ/L (3.5-5.1); SODIUM LEVEL 140 MEQ/L (136-145)
[2017-09-03] MEDS: METOPROLOL SUCC (TopROL XL) 50MG **XL** TAB PO (09:00)
[2017-09-03] MEDS: MULTIVITAMINS/MINERALS THERAP 1 TAB PO (09:56)
[2017-09-03] MEDS: FERROUS SULFATE 325MG TAB PO (09:56)
[2017-09-03] MEDS: HumaLOG INSULIN (NovoLOG) PER UNIT SC ×4 (09:56→20:39)
[2017-09-03] MEDS: DOCUSATE SODIUM 100 MG CAP PO ×2 (09:57→21:39)
[2017-09-03] MEDS: VITAMIN D 1,000 INTERNATIONAL UNITS TABLET PO (09:57)
[2017-09-03] MEDS: TAMSULOSIN 0.4 MG CAP PO (09:57)
[2017-09-03] MEDS: DIGOXIN 0.125 MG TAB PO (09:58)
[2017-09-03] MEDS: LEVEMIR (INSULIN DETEMIR) 1 UNITS/0.01ML SC ×2 (09:59→21:00)
[2017-09-03] MEDS: POTASSIUM CHLORIDE 10 MEQ SR TABLET PO ×3 (12:12→21:39)
[2017-09-03] MEDS: WARFARIN SOD 5 MG TAB PO (18:01)
[2017-09-03] MEDS: SODIUM CHLORIDE 0.9% INJ 10 ML SYR IV ×2 (18:02→22:38)
[2017-09-03] MEDS: SIMVASTATIN 10 MG TAB PO (21:00)
[2017-09-04] MEDS: MEROPENEM INJ 1 GM in D5W MINI-BAG PLUS 100 ML IV ×3 (04:51→22:11)
[2017-09-04] MEDS: FUROSEMIDE 40 MG/4 ML VIAL (J1940) IV ×3 (05:42→23:07)
[2017-09-04] MEDS: SODIUM CHLORIDE 0.9% INJ 10 ML SYR IV ×3 (05:42→17:36)
[2017-09-04 06:12] LABS: MEAN CORPUSCULAR HEMOGLOBIN 25.9 pg (27.0-33.0); MEAN CORPUSCULAR HGB CONC 30.7 g/dl (32.0-36.5); MEAN CORPUSCULAR VOLUME 84.3 fl (80.0-96.0); PLATELET COUNT, AUTOMATED 178 10^3/uL (150-450); RED CELL DISTRIBUTION WIDTH 17.2 % (11.5-14.5); WHITE BLOOD COUNT 8.2 10^3/uL (4.0-10.0)
[2017-09-04 06:18] LABS: INR 1.93
[2017-09-04 06:32] LABS: ANION GAP 6 MEQ/L (8-16); BLOOD UREA NITROGEN 23 MG/DL (7-18); CALCIUM LEVEL 8.7 MG/DL (8.8-10.2); CARBON DIOXIDE LEVEL 33 MEQ/L (21-32); CHLORIDE LEVEL 101 MEQ/L (98-107); CREATININE FOR GFR 1.03 MG/DL (0.70-1.30); GLOMERULAR FILTRATION RATE > 60.0 (>42); GLUCOSE, FASTING 124 MG/DL (83-110); POTASSIUM SERUM 3.8 MEQ/L (3.5-5.1); SODIUM LEVEL 140 MEQ/L (136-145)
[2017-09-04] MEDS: METOPROLOL SUCC (TopROL XL) 50MG **XL** TAB PO (09:00)
[2017-09-04] MEDS: MULTIVITAMINS/MINERALS THERAP 1 TAB PO (09:22)
[2017-09-04] MEDS: FERROUS SULFATE 325MG TAB PO (09:22)
[2017-09-04] MEDS: HumaLOG INSULIN (NovoLOG) PER UNIT SC ×4 (09:22→21:00)
[2017-09-04] MEDS: DIGOXIN 0.125 MG TAB PO (09:23)
[2017-09-04] MEDS: TAMSULOSIN 0.4 MG CAP PO (09:23)
[2017-09-04] MEDS: VITAMIN D 1,000 INTERNATIONAL UNITS TABLET PO (09:23)
[2017-09-04] MEDS: DOCUSATE SODIUM 100 MG CAP PO ×2 (09:23→21:00)
[2017-09-04] MEDS: POTASSIUM CHLORIDE 10 MEQ SR TABLET PO ×3 (09:24→22:10)
[2017-09-04] MEDS: LEVEMIR (INSULIN DETEMIR) 1 UNITS/0.01ML SC ×2 (09:30→22:10)
[2017-09-04] MEDS ORDERED: NYSTATIN 100,000 UNITS/GM TOPICAL PWD 15 GM TOP (16:00)
[2017-09-04] MEDS: WARFARIN SOD 2.5 MG TAB PO (16:49)
[2017-09-04] MEDS: SIMVASTATIN 10 MG TAB PO (22:10)
[2017-09-04] MEDS: ACETAMINOPHEN TAB 650MG DOSE (2X325MG) PO (22:12)
[2017-09-05] MEDS: MEROPENEM INJ 1 GM in D5W MINI-BAG PLUS 100 ML IV ×3 (05:20→20:39)
[2017-09-05] MEDS: FUROSEMIDE 40 MG/4 ML VIAL (J1940) IV ×3 (05:22→21:33)
[2017-09-05] MEDS: SODIUM CHLORIDE 0.9% INJ 10 ML SYR IV ×3 (06:08→21:33)
[2017-09-05 07:48] LABS: MEAN CORPUSCULAR HEMOGLOBIN 25.7 pg (27.0-33.0); MEAN CORPUSCULAR HGB CONC 30.6 g/dl (32.0-36.5); MEAN CORPUSCULAR VOLUME 84.1 fl (80.0-96.0); PLATELET COUNT, AUTOMATED 187 10^3/uL (150-450); RED CELL DISTRIBUTION WIDTH 17.2 % (11.5-14.5)
[2017-09-05] MEDS: POTASSIUM CHLORIDE 10 MEQ SR TABLET PO ×3 (08:07→20:38)
[2017-09-05] MEDS: HumaLOG INSULIN (NovoLOG) PER UNIT SC ×4 (08:07→21:00)
[2017-09-05] MEDS: LEVEMIR (INSULIN DETEMIR) 1 UNITS/0.01ML SC ×2 (08:07→20:39)
[2017-09-05 08:08] LABS: INR 2.14
[2017-09-05] MEDS: METOPROLOL SUCC (TopROL XL) 50MG **XL** TAB PO (08:08)
[2017-09-05] MEDS: DOCUSATE SODIUM 100 MG CAP PO ×2 (08:08→20:39)
[2017-09-05] MEDS: DIGOXIN 0.125 MG TAB PO (08:08)
[2017-09-05] MEDS: TAMSULOSIN 0.4 MG CAP PO (08:08)
[2017-09-05] MEDS: FERROUS SULFATE 325MG TAB PO (08:08)
[2017-09-05] MEDS: VITAMIN D 1,000 INTERNATIONAL UNITS TABLET PO (08:08)
[2017-09-05] MEDS: MULTIVITAMINS/MINERALS THERAP 1 TAB PO (08:08)
[2017-09-05 08:25] LABS: ANION GAP 5 MEQ/L (8-16); BLOOD UREA NITROGEN 22 MG/DL (7-18); CALCIUM LEVEL 8.8 MG/DL (8.8-10.2); CARBON DIOXIDE LEVEL 33 MEQ/L (21-32); CHLORIDE LEVEL 101 MEQ/L (98-107); CREATININE FOR GFR 1.05 MG/DL (0.70-1.30); GLOMERULAR FILTRATION RATE > 60.0 (>42); GLUCOSE, FASTING 110 MG/DL (83-110); POTASSIUM SERUM 3.8 MEQ/L (3.5-5.1); SODIUM LEVEL 139 MEQ/L (136-145)
[2017-09-05] MEDS: WARFARIN SOD 5 MG TAB PO (16:50)
[2017-09-05] MEDS: SIMVASTATIN 10 MG TAB PO (20:39)
[2017-09-05] MEDS: ACETAMINOPHEN TAB 650MG DOSE (2X325MG) PO (20:40)
[2017-09-06] MEDS: FUROSEMIDE 40 MG/4 ML VIAL (J1940) IV ×3 (05:20→21:35)
[2017-09-06] MEDS: MEROPENEM INJ 1 GM in D5W MINI-BAG PLUS 100 ML IV ×3 (05:21→20:54)
[2017-09-06 05:44] LABS: MEAN CORPUSCULAR HEMOGLOBIN 26.3 pg (27.0-33.0); MEAN CORPUSCULAR HGB CONC 30.8 g/dl (32.0-36.5); MEAN CORPUSCULAR VOLUME 85.3 fl (80.0-96.0); PLATELET COUNT, AUTOMATED 188 10^3/uL (150-450); RED CELL DISTRIBUTION WIDTH 17.4 % (11.5-14.5); WHITE BLOOD COUNT 7.6 10^3/uL (4.0-10.0)
[2017-09-06 05:57] LABS: INR 2.33
[2017-09-06 06:12] LABS: ANION GAP 6 MEQ/L (8-16); BLOOD UREA NITROGEN 23 MG/DL (7-18); CALCIUM LEVEL 8.7 MG/DL (8.8-10.2); CARBON DIOXIDE LEVEL 33 MEQ/L (21-32); CHLORIDE LEVEL 103 MEQ/L (98-107); CREATININE FOR GFR 1.15 MG/DL (0.70-1.30); GLOMERULAR FILTRATION RATE > 60.0 (>42); GLUCOSE, FASTING 94 MG/DL (83-110); POTASSIUM SERUM 4.3 MEQ/L (3.5-5.1); SODIUM LEVEL 142 MEQ/L (136-145)
[2017-09-06] MEDS: HumaLOG INSULIN (NovoLOG) PER UNIT SC ×4 (07:30→21:00)
[2017-09-06] MEDS: DOCUSATE SODIUM 100 MG CAP PO ×2 (08:50→21:00)
[2017-09-06] MEDS: FERROUS SULFATE 325MG TAB PO (08:50)
[2017-09-06] MEDS: VITAMIN D 1,000 INTERNATIONAL UNITS TABLET PO (08:51)
[2017-09-06] MEDS: TAMSULOSIN 0.4 MG CAP PO (08:51)
[2017-09-06] MEDS: ACETAMINOPHEN TAB 650MG DOSE (2X325MG) PO ×2 (08:51→20:55)
[2017-09-06] MEDS: POTASSIUM CHLORIDE 10 MEQ SR TABLET PO (08:52)
[2017-09-06] MEDS: METOPROLOL SUCC (TopROL XL) 50MG **XL** TAB PO (08:52)
[2017-09-06] MEDS: MULTIVITAMINS/MINERALS THERAP 1 TAB PO (08:52)
[2017-09-06] MEDS: DIGOXIN 0.125 MG TAB PO (08:52)
[2017-09-06] MEDS: LEVEMIR (INSULIN DETEMIR) 1 UNITS/0.01ML SC ×2 (08:53→20:54)
[2017-09-06] MEDS: NYSTATIN 100,000 UNITS/GM TOPICAL PWD 15 GM TOP ×2 (08:53→20:54)
[2017-09-06] MEDS: WARFARIN SOD 2.5 MG TAB PO (16:59)
[2017-09-06] MEDS: SODIUM CHLORIDE 0.9% INJ 10 ML SYR IV ×2 (17:02→21:34)
[2017-09-06] MEDS: diphenhydrAMINE 50 MG CAP PO (18:43)
[2017-09-06] MEDS: SIMVASTATIN 10 MG TAB PO (20:54)
[2017-09-07] MEDS: diphenhydrAMINE 25 MG CAP PO ×3 (01:45→21:36)
[2017-09-07] MEDS: MEROPENEM INJ 1 GM in D5W MINI-BAG PLUS 100 ML IV ×3 (05:16→21:35)
[2017-09-07] MEDS: SODIUM CHLORIDE 0.9% INJ 10 ML SYR IV ×3 (05:16→21:37)
[2017-09-07] MEDS: FUROSEMIDE 40 MG/4 ML VIAL (J1940) IV ×3 (05:16→21:36)
[2017-09-07 05:21] LABS: MEAN CORPUSCULAR HEMOGLOBIN 26.1 pg (27.0-33.0); MEAN CORPUSCULAR HGB CONC 30.9 g/dl (32.0-36.5); MEAN CORPUSCULAR VOLUME 84.3 fl (80.0-96.0); PLATELET COUNT, AUTOMATED 198 10^3/uL (150-450); RED CELL DISTRIBUTION WIDTH 17.6 % (11.5-14.5); WHITE BLOOD COUNT 9.6 10^3/uL (4.0-10.0)
[2017-09-07 05:37] LABS: ANION GAP 5 MEQ/L (8-16); BLOOD UREA NITROGEN 25 MG/DL (7-18); CARBON DIOXIDE LEVEL 33 MEQ/L (21-32); CHLORIDE LEVEL 101 MEQ/L (98-107); CREATININE FOR GFR 1.21 MG/DL (0.70-1.30); GLOMERULAR FILTRATION RATE > 60.0 (>42); GLUCOSE, FASTING 75 MG/DL (83-110); POTASSIUM SERUM 4.1 MEQ/L (3.5-5.1); SODIUM LEVEL 139 MEQ/L (136-145)
[2017-09-07] MEDS: HumaLOG INSULIN (NovoLOG) PER UNIT SC ×4 (07:30→21:00)
[2017-09-07] MEDS: LEVEMIR (INSULIN DETEMIR) 1 UNITS/0.01ML SC ×2 (09:12→21:35)
[2017-09-07] MEDS: METOPROLOL SUCC (TopROL XL) 50MG **XL** TAB PO (09:13)
[2017-09-07] MEDS: TAMSULOSIN 0.4 MG CAP PO (09:13)
[2017-09-07] MEDS: DIGOXIN 0.125 MG TAB PO (09:13)
[2017-09-07] MEDS: POTASSIUM CHLORIDE 10 MEQ SR TABLET PO (09:13)
[2017-09-07] MEDS: FERROUS SULFATE 325MG TAB PO (09:14)
[2017-09-07] MEDS: DOCUSATE SODIUM 100 MG CAP PO ×2 (09:14→21:00)
[2017-09-07] MEDS: MULTIVITAMINS/MINERALS THERAP 1 TAB PO (09:14)
[2017-09-07] MEDS: NYSTATIN 100,000 UNITS/GM TOPICAL PWD 15 GM TOP ×2 (09:15→21:36)
[2017-09-07] MEDS: VITAMIN D 1,000 INTERNATIONAL UNITS TABLET PO (09:55)
[2017-09-07] MEDS: AcetaZOLAMIDE 250 MG TAB PO (14:07)
[2017-09-07] MEDS: WARFARIN SOD 5 MG TAB PO (17:24)
[2017-09-07] MEDS: SIMVASTATIN 10 MG TAB PO (21:36)
[2017-09-07] MEDS: ACETAMINOPHEN TAB 650MG DOSE (2X325MG) PO (21:36)
[2017-09-08] MEDS: MEROPENEM INJ 1 GM in D5W MINI-BAG PLUS 100 ML IV (05:30)
[2017-09-08] MEDS: FUROSEMIDE 40 MG/4 ML VIAL (J1940) IV (05:30)
[2017-09-08] MEDS: SODIUM CHLORIDE 0.9% INJ 10 ML SYR IV ×2 (05:31→16:55)
[2017-09-08 05:48] LABS: BASO # 0.1 10^3/uL (0.0-0.2); BASO % 0.5 % (0.0-1.0); EOS # 0.9 10^3/uL (0.0-0.50); EOS % 8.8 % (0.0-3.0); IMMATURE GRANULOCYTE # 0.2 10^3/uL (0-0); IMMATURE GRANULOCYTE % 1.5 % (0-0); LYMPH # 0.6 10^3/uL (1.5-4.5); LYMPH % 5.8 % (24.0-44.0); MEAN CORPUSCULAR HEMOGLOBIN 26.1 pg (27.0-33.0); MEAN CORPUSCULAR HGB CONC 31.1 g/dl (32.0-36.5); MEAN CORPUSCULAR VOLUME 84.2 fl (80.0-96.0); MONO # 0.9 10^3/uL (0.0-0.8); MONO % 8.1 % (0.0-5.0); NEUTROPHILS # 7.9 10^3/uL (1.8-7.7); NEUTROPHILS % 75.3 % (36.0-66.0); PLATELET COUNT, AUTOMATED 192 10^3/uL (150-450); RED CELL DISTRIBUTION WIDTH 17.7 % (11.5-14.5); WHITE BLOOD COUNT 10.5 10^3/uL (4.0-10.0)
[2017-09-08 05:57] LABS: INR 2.76
[2017-09-08 06:05] LABS: ANION GAP 3 MEQ/L (8-16); BLOOD UREA NITROGEN 25 MG/DL (7-18); CARBON DIOXIDE LEVEL 36 MEQ/L (21-32); CHLORIDE LEVEL 101 MEQ/L (98-107); CREATININE FOR GFR 1.35 MG/DL (0.70-1.30); GLOMERULAR FILTRATION RATE 54.4 (>42); GLUCOSE, FASTING 56 MG/DL (83-110); SODIUM LEVEL 140 MEQ/L (136-145)
[2017-09-08] MEDS: HumaLOG INSULIN (NovoLOG) PER UNIT SC ×4 (07:30→21:00)
[2017-09-08] MEDS: LEVEMIR (INSULIN DETEMIR) 1 UNITS/0.01ML SC ×2 (09:00→21:00)
[2017-09-08] MEDS: TAMSULOSIN 0.4 MG CAP PO (09:48)
[2017-09-08] MEDS: FERROUS SULFATE 325MG TAB PO (09:49)
[2017-09-08] MEDS: VITAMIN D 1,000 INTERNATIONAL UNITS TABLET PO (09:49)
[2017-09-08] MEDS: METOPROLOL SUCC (TopROL XL) 50MG **XL** TAB PO (09:49)
[2017-09-08] MEDS: DIGOXIN 0.125 MG TAB PO (09:50)
[2017-09-08] MEDS: POTASSIUM CHLORIDE 10 MEQ SR TABLET PO (09:50)
[2017-09-08] MEDS: DOCUSATE SODIUM 100 MG CAP PO ×2 (09:50→21:02)
[2017-09-08] MEDS: MULTIVITAMINS/MINERALS THERAP 1 TAB PO (09:50)
[2017-09-08] MEDS: NYSTATIN 100,000 UNITS/GM TOPICAL PWD 15 GM TOP ×2 (09:54→21:02)
[2017-09-08] MEDS: diphenhydrAMINE 25 MG CAP PO (16:54)
[2017-09-08] MEDS: WARFARIN SOD 2.5 MG TAB PO (16:54)
[2017-09-08] MEDS: methylPREDNISolone INJ 125 MG/2 ML VIAL (J2930) IV (16:55)
[2017-09-08] MEDS ORDERED: FUROSEMIDE 40 MG/4 ML VIAL (J1940) IV (17:00)
[2017-09-08] MEDS: SIMVASTATIN 10 MG TAB PO (21:02)
[2017-09-09] MEDS: SODIUM CHLORIDE 0.9% INJ 10 ML SYR IV ×2 (05:29→17:27)
[2017-09-09 05:44] LABS: MEAN CORPUSCULAR HEMOGLOBIN 26.1 pg (27.0-33.0); MEAN CORPUSCULAR HGB CONC 30.9 g/dl (32.0-36.5); MEAN CORPUSCULAR VOLUME 84.7 fl (80.0-96.0); PLATELET COUNT, AUTOMATED 190 10^3/uL (150-450)
[2017-09-09 05:55] LABS: INR 2.66
[2017-09-09 06:02] LABS: ANION GAP 3 MEQ/L (8-16); BLOOD UREA NITROGEN 32 MG/DL (7-18); CARBON DIOXIDE LEVEL 34 MEQ/L (21-32); CHLORIDE LEVEL 99 MEQ/L (98-107); CREATININE FOR GFR 1.54 MG/DL (0.70-1.30); GLOMERULAR FILTRATION RATE 46.7 (>42); GLUCOSE, FASTING 363 MG/DL (83-110); POTASSIUM SERUM 4.3 MEQ/L (3.5-5.1); SODIUM LEVEL 136 MEQ/L (136-145)
[2017-09-09] MEDS: HumaLOG INSULIN (NovoLOG) PER UNIT SC ×4 (07:56→20:20)
[2017-09-09] MEDS: LEVEMIR (INSULIN DETEMIR) 1 UNITS/0.01ML SC ×2 (07:57→20:20)
[2017-09-09] MEDS: DIGOXIN 0.125 MG TAB PO (07:57)
[2017-09-09] MEDS: BUMETANIDE 1 MG TAB PO (07:57)
[2017-09-09] MEDS: DOCUSATE SODIUM 100 MG CAP PO ×2 (07:58→20:19)
[2017-09-09] MEDS: TAMSULOSIN 0.4 MG CAP PO (07:58)
[2017-09-09] MEDS: POTASSIUM CHLORIDE 10 MEQ SR TABLET PO (07:58)
[2017-09-09] MEDS: METOPROLOL SUCC (TopROL XL) 50MG **XL** TAB PO (07:59)
[2017-09-09] MEDS: VITAMIN D 1,000 INTERNATIONAL UNITS TABLET PO (07:59)
[2017-09-09] MEDS: FERROUS SULFATE 325MG TAB PO (07:59)
[2017-09-09] MEDS: MULTIVITAMINS/MINERALS THERAP 1 TAB PO (07:59)
[2017-09-09] MEDS: NYSTATIN 100,000 UNITS/GM TOPICAL PWD 15 GM TOP ×2 (08:00→20:21)
[2017-09-09] MEDS: predniSONE 10 MG TAB PO (12:45)
[2017-09-09] MEDS ORDERED: EUCERIN 120GM CREAM TOP (13:45)
[2017-09-09] MEDS: EUCERIN 120GM CREAM TOP (14:09)
[2017-09-09] MEDS: WARFARIN SOD 5 MG TAB PO (17:26)
[2017-09-09] MEDS: SIMVASTATIN 10 MG TAB PO (20:19)
[2017-09-09] MEDS: diphenhydrAMINE 25 MG CAP PO (22:36)
[2017-09-10] MEDS: SODIUM CHLORIDE 0.9% INJ 10 ML SYR IV (05:08)
[2017-09-10 05:23] LABS: MEAN CORPUSCULAR HEMOGLOBIN 26.7 pg (27.0-33.0); MEAN CORPUSCULAR HGB CONC 31.6 g/dl (32.0-36.5); MEAN CORPUSCULAR VOLUME 84.3 fl (80.0-96.0); PLATELET COUNT, AUTOMATED 203 10^3/uL (150-450); RED CELL DISTRIBUTION WIDTH 17.7 % (11.5-14.5); WHITE BLOOD COUNT 16.6 10^3/uL (4.0-10.0)
[2017-09-10 05:40] LABS: INR 3.57
[2017-09-10 05:46] LABS: ANION GAP 6 MEQ/L (8-16); BLOOD UREA NITROGEN 40 MG/DL (7-18); CARBON DIOXIDE LEVEL 32 MEQ/L (21-32); CHLORIDE LEVEL 102 MEQ/L (98-107); CREATININE FOR GFR 1.55 MG/DL (0.70-1.30); GLOMERULAR FILTRATION RATE 46.4 (>42); GLUCOSE, FASTING 235 MG/DL (83-110); SODIUM LEVEL 140 MEQ/L (136-145)
[2017-09-10] MEDS: HumaLOG INSULIN (NovoLOG) PER UNIT SC ×2 (08:06→12:47)
[2017-09-10] MEDS: LEVEMIR (INSULIN DETEMIR) 1 UNITS/0.01ML SC (08:07)
[2017-09-10] MEDS: METOPROLOL SUCC (TopROL XL) 50MG **XL** TAB PO (08:08)
[2017-09-10] MEDS: POTASSIUM CHLORIDE 10 MEQ SR TABLET PO (08:09)
[2017-09-10] MEDS: DIGOXIN 0.125 MG TAB PO (08:09)
[2017-09-10] MEDS: predniSONE 10 MG TAB PO (08:09)
[2017-09-10] MEDS: VITAMIN D 1,000 INTERNATIONAL UNITS TABLET PO (08:10)
[2017-09-10] MEDS: TAMSULOSIN 0.4 MG CAP PO (08:10)
[2017-09-10] MEDS: DOCUSATE SODIUM 100 MG CAP PO (08:10)
[2017-09-10] MEDS: MULTIVITAMINS/MINERALS THERAP 1 TAB PO (08:10)
[2017-09-10] MEDS: FERROUS SULFATE 325MG TAB PO (08:10)
[2017-09-10] MEDS: EUCERIN 120GM CREAM TOP (08:11)
[2017-09-10] MEDS: NYSTATIN 100,000 UNITS/GM TOPICAL PWD 15 GM TOP (08:11)
== END 2017-09-10 14:10 | disposition home health service (06) | DRG 854 ==
LOC: M MS4PR 08-29 00:01 → M MS5PR 09-04 18:08 → M ICU 08-29 20:58 → M ED 19:12 → M ED INP 22:19
PROC: 0Y6Q0Z1 Detachment at Left 1st Toe, High, Open Approach (ICD-10-PCS; principal; 2017-08-29 13:43)
PROC: 0Y6S0Z1 Detachment at Left 2nd Toe, High, Open Approach (ICD-10-PCS; 2017-08-29 13:43)
PROC: 02HV33Z Insertion of Infusion Device into Superior Vena Cava, Percutaneous Approach (ICD-10-PCS; 2017-08-29 20:00)
PROC: 30233N1 Transfusion of Nonautologous Red Blood Cells into Peripheral Vein, Percutaneous Approach (ICD-10-PCS; 2017-08-29 20:00)
PROC: 30233K1 Transfusion of Nonautologous Frozen Plasma into Peripheral Vein, Percutaneous Approach (ICD-10-PCS; 2017-08-29 20:00)
DX: A41.9 Sepsis, unspecified organism (principal); N17.9 Acute kidney failure, unspecified; E11.52 Type 2 diabetes mellitus with diabetic peripheral angiopathy with gangrene; L03.116 Cellulitis of left lower limb; N18.3 Chronic kidney disease, stage 3 (moderate); R65.20 Severe sepsis without septic shock; E87.6 Hypokalemia; I48.91 Unspecified atrial fibrillation; D63.1 Anemia in chronic kidney disease; E78.5 Hyperlipidemia, unspecified; I12.9 Hypertensive chronic kidney disease with stage 1 through stage 4 chronic kidney disease, or unspecified chronic kidney disease; E78.00 Pure hypercholesterolemia, unspecified; N40.1 Benign prostatic hyperplasia with lower urinary tract symptoms; Z96.0 Presence of urogenital implants; Z79.4 Long term (current) use of insulin; Z79.52 Long term (current) use of systemic steroids; Z79.899 Other long term (current) drug therapy; Z88.8 Allergy status to other drugs, medicaments and biological substances; Z86.718 Personal history of other venous thrombosis and embolism

== ENCOUNTER → 2017-09-12 | Outpatient (REF) | payer MEDICARE ==
[~2017-09-12] MED LIST changes: +PRED10TA2 PO
[2017-09-12 16:05] LABS: INR 3.19
[2017-09-12 16:26] LABS: CALCIUM LEVEL 9.5 MG/DL (8.8-10.2); CREATININE FOR GFR 1.45 MG/DL (0.70-1.30); GLOMERULAR FILTRATION RATE 50.1 (>42); POTASSIUM SERUM 4.6 MEQ/L (3.5-5.1)
== END ==
LOC: M SHH 15:44
PROVIDERS: ATTEND Internal Medicine
DX: N17.9 Acute kidney failure, unspecified (principal)

== ENCOUNTER 2017-09-22 12:37 | Inpatient (IN) | payer MEDICARE ==
[~2017-09-22] VITALS: Ht 180.3 cm; Wt 118.4 kg
[~2017-09-22 12:37] MED LIST changes: +HEPARIN 1,000 UNITS/ML 10ML VIAL (FOR RADIOLOGY& DIALYSIS ONLY) As Ordered ONE; +ISOVUE-300 61% 50ML VIAL (Q9967) As Ordered ONE; +MIDAZOLAM INJ 2 MG/2 ML VIAL (J2250) As Ordered ONE; +PROTAMINE SULF INJ 50 MG/5 ML VIAL (J2720) As Ordered ONE; +fentaNYL 100 MCG/2 ML INJECTION (J3010) As Ordered ONE
[2017-09-22 13:49] LABS: MEAN CORPUSCULAR HEMOGLOBIN 25.7 pg (27.0-33.0); MEAN CORPUSCULAR HGB CONC 30.4 g/dl (32.0-36.5); MEAN CORPUSCULAR VOLUME 84.4 fl (80.0-96.0); PLATELET COUNT, AUTOMATED 179 10^3/uL (150-450); RED CELL DISTRIBUTION WIDTH 20.1 % (11.5-14.5); WHITE BLOOD COUNT 9.4 10^3/uL (4.0-10.0)
[2017-09-22 14:02] LABS: CALCIUM LEVEL 8.5 MG/DL (8.8-10.2); CREATININE FOR GFR 1.51 MG/DL (0.70-1.30); GLOMERULAR FILTRATION RATE 47.8 (>42); POTASSIUM SERUM 4.8 MEQ/L (3.5-5.1)
[2017-09-22 14:14] LABS: INR 5.27
[2017-09-22] MEDS ORDERED: PHYTONADIONE 5 MG TAB PO ONE (14:30)
[2017-09-22] MEDS ORDERED: BUME1TA PO (15:34)
[2017-09-22] MEDS ORDERED: NYST1POW9 TOP (15:34)
[2017-09-22] MEDS ORDERED: MIRA33504 PO (15:34)
[2017-09-22] MEDS: PIPERACILLIN/TAZOBACTAM SOD 3.375 GM in APPROPRIATE DILUENT 1 EA IV SCH (18:22)
[2017-09-22] MEDS ORDERED: NYSTATIN 100,000 UNITS/GM TOPICAL PWD 15 GM TOP PRN (18:45)
[2017-09-22] MEDS ORDERED: MIRALAX *UNIT DOSE* 17GM PACKET PO PRN (18:45)
[2017-09-22] MEDS ORDERED: WARFARIN SOD 5 MG TAB PO SCH ×2 (18:45)
[2017-09-22] MEDS ORDERED: GLUCAGON FOR INJ 1 MG VIAL (J1610) SC PRN (19:30)
[2017-09-22] MEDS ORDERED: DEXTROSE 50% 50 ML SYRINGE IV PRN (19:30)
[2017-09-22] MEDS ORDERED: GLUCOSE 4 GM CHEW TABLET PO PRN (19:30)
[2017-09-22] MEDS: LEVEMIR (INSULIN DETEMIR) 1 UNITS/0.01ML SC SCH (21:00)
[2017-09-22] MEDS: SIMVASTATIN 10 MG TAB PO SCH (21:36)
[2017-09-22] MEDS: HumaLOG INSULIN (NovoLOG) PER UNIT SC SCH (21:39)
[2017-09-22 22:00] VITALS: BP 151/82
[2017-09-23] MEDS: PIPERACILLIN/TAZOBACTAM SOD 3.375 GM in APPROPRIATE DILUENT 1 EA IV SCH ×3 (01:28→17:01)
[2017-09-23 06:00] VITALS: BP 120/54
[2017-09-23 06:33] LABS: INR 2.89
[2017-09-23] MEDS ORDERED: HumaLOG INSULIN (NovoLOG) PER UNIT SC SCH (07:30)
[2017-09-23] MEDS: TAMSULOSIN 0.4 MG CAP PO SCH (08:19)
[2017-09-23] MEDS: FERROUS SULFATE 325MG TAB PO SCH (08:19)
[2017-09-23] MEDS: BUMETANIDE 1 MG TAB PO SCH (08:19)
[2017-09-23] MEDS: HumaLOG INSULIN (NovoLOG) PER UNIT SC SCH ×4 (08:19→21:00)
[2017-09-23] MEDS: MULTIVITAMINS/MINERALS THERAP 1 TAB PO SCH (08:19)
[2017-09-23] MEDS: VITAMIN D 1,000 INTERNATIONAL UNITS TABLET PO SCH (08:20)
[2017-09-23] MEDS: DIGOXIN 0.125 MG TAB PO SCH (08:20)
[2017-09-23] MEDS: METOPROLOL SUCC (TopROL XL) 50MG **XL** TAB PO SCH (08:20)
[2017-09-23] MEDS: LEVEMIR (INSULIN DETEMIR) 1 UNITS/0.01ML SC SCH ×2 (08:21→21:00)
[2017-09-23 14:00] VITALS: BP 137/66
[2017-09-23] MEDS: DAKIN'S 0.25% HALF-STRENGTH SOLN 480 ML TOP SCH ×2 (17:00→21:27)
[2017-09-23 19:30] VITALS: BP 102/64
[2017-09-23] MEDS: SIMVASTATIN 10 MG TAB PO SCH (21:26)
[2017-09-23 22:00] VITALS: BP 113/55
[2017-09-24] MEDS: PIPERACILLIN/TAZOBACTAM SOD 3.375 GM in APPROPRIATE DILUENT 1 EA IV SCH ×3 (01:03→18:04)
[2017-09-24] MEDS: DAKIN'S 0.25% HALF-STRENGTH SOLN 480 ML TOP SCH ×3 (05:29→21:17)
[2017-09-24 06:00] VITALS: BP 119/59
[2017-09-24] MEDS: HumaLOG INSULIN (NovoLOG) PER UNIT SC SCH ×4 (07:29→21:16)
[2017-09-24] MEDS: FERROUS SULFATE 325MG TAB PO SCH (08:05)
[2017-09-24] MEDS: MULTIVITAMINS/MINERALS THERAP 1 TAB PO SCH (08:06)
[2017-09-24] MEDS: VITAMIN D 1,000 INTERNATIONAL UNITS TABLET PO SCH (08:06)
[2017-09-24] MEDS: BUMETANIDE 1 MG TAB PO SCH (08:06)
[2017-09-24] MEDS: TAMSULOSIN 0.4 MG CAP PO SCH (08:06)
[2017-09-24] MEDS: LEVEMIR (INSULIN DETEMIR) 1 UNITS/0.01ML SC SCH ×2 (08:08→21:17)
[2017-09-24] MEDS: DIGOXIN 0.125 MG TAB PO SCH (08:08)
[2017-09-24] MEDS: METOPROLOL SUCC (TopROL XL) 50MG **XL** TAB PO SCH (08:08)
[2017-09-24 14:00] VITALS: BP 108/53
[2017-09-24] MEDS: SIMVASTATIN 10 MG TAB PO SCH (21:15)
[2017-09-24 22:00] VITALS: BP 114/58
[2017-09-25] VITALS (10 sets, daily range): BP systolic 101–134; BP diastolic 55–64
[2017-09-25] MEDS: PIPERACILLIN/TAZOBACTAM SOD 3.375 GM in APPROPRIATE DILUENT 1 EA IV SCH ×2 (02:20→11:16)
[2017-09-25] MEDS: DAKIN'S 0.25% HALF-STRENGTH SOLN 480 ML TOP SCH ×2 (06:36→15:14)
[2017-09-25] MEDS ORDERED: fentaNYL 100 MCG/2 ML INJECTION (J3010) As Ordered ONE (07:00)
[2017-09-25] MEDS ORDERED: ISOVUE-300 61% 50ML VIAL (Q9967) As Ordered ONE ×2 (07:00→08:26)
[2017-09-25] MEDS ORDERED: MIDAZOLAM INJ 2 MG/2 ML VIAL (J2250) As Ordered ONE (07:00)
[2017-09-25] MEDS ORDERED: HEPARIN 1,000 UNITS/ML 10ML VIAL (FOR RADIOLOGY& DIALYSIS ONLY) As Ordered ONE (07:00)
[2017-09-25] MEDS ORDERED: DAKINSHS TOP (10:45)
--- NOTE | 2017-09-25 10:56 | DS.PDOC ---
Discharge Summary General Date of Admission Sep 22, 2017 Date of Discharge 09/25/2017 Attending Physician: Aj Vicente MD Discharge Summary PROCEDURES PERFORMED DURING STAY: Left lower extremity angioplasty and atherectomy of the superficial femoral, popliteal, tibial peroneal and peroneal arteries. ADMITTING DIAGNOSES: 1. Left lower extremity arterial atherosclerotic occlusive disease with nonhealing left first and second toe amputation site. 2. Chronic renal insufficiency. 3. Atrial fibrillation. 4. Diabetes mellitus DISCHARGE DIAGNOSES: 1. Left lower extremity arterial atherosclerotic occlusive disease with nonhealing left first and second toe amputation site. 2. Chronic renal insufficiency. 3. Atrial fibrillation. 4. Diabetes mellitus COMPLICATIONS/CHIEF COMPLAINT: Ulcer Lt Toe, and SFA, popliteal and peroneal artery atherosclerotic occlusive disease. HISTORY OF PRESENT ILLNESS: Patient is a 77-year-old male who was scheduled to undergo left lower extremity angiogram with possible intervention on 09/22/2017 but was found to have an elevated INR greater than 5. Patient was admitted to the hospital and given vitamin K orally and his repeat INR was acceptable for procedure but due to an emergent OR case the patient was unable to undergo the angiogram on either September 23 or the . Patient subsequently underwent the left lower extremity angiogram with intervention on September 25 with atherectomy and angioplasty of his left lower extremity superficial femoral artery, popliteal artery, tibial peroneal artery and peroneal artery. Patient did well post procedure and will be discharged to home with follow-up in the office. HOSPITAL COURSE: Patient was admitted to the hospital his INR was corrected and the patient underwent an angiogram with intervention on 09/25/2017. DISCHARGE MEDICATIONS: Please see below. ALLERGIES: Please see below. PHYSICAL EXAMINATION ON DISCHARGE: VITAL SIGNS: Please see below. GENERAL: Lying in bed in no apparent distress HEENT: Normal NECK: Supple with no carotid bruits CARDIOVASCULAR EXAMINATION: Irregularly irregular RESPIRATORY EXAMINATION: Clear to auscultation bilaterally ABDOMINAL EXAMINATION: Soft nontender nondistended with no palpable pulsatile masses EXTREMITIES: Right lower extremity is warm and well-perfused with mild edema and extensive stigmata of chronic venous insufficiency. Left lower extremity shows extensive stigmata of venous insufficiency with a left lateral venous stasis ulcer which is healing well. The left first and second toe amputation site site shows nonhealing with exposed metatarsal heads with no obvious signs of infection. SKIN: Warm well perfused NEUROLOGICAL EXAMINATION: Awake alert oriented 3 with no focal deficits PSYCHIATRIC EXAMINATION: Normal with some mild anxiety LABORATORY DATA: Please see below. IMAGING: Patient underwent a left lower extremity angiogram with atherectomy of the left popliteal and peroneal arteries as well as the tibial peroneal trunk. Patient underwent angioplasty of the left superficial femoral and popliteal arteries with good angiographic result noted on follow-up angiography. PROGNOSIS: Good ACTIVITY: [As tolerated]. DIET: Resume previous diet. DISCHARGE PLAN: Patient will be discharged to home with continued home health nursing. DISPOSITION: Home. DISCHARGE INSTRUCTIONS: 1. Patient will undergo wet-to-dry dressing with quarter percent Dakin's solution to the left first and second toe amputation site daily. 2. Patient will place a foam dressing on the left lateral venous stasis ulcer and this will be changed daily. 3. Patient will elevate his legs as much as possible and avoid having his legs hanging in the dependent position due to his chronic severe venous insufficiency. DISCHARGE CONDITION: [Stable]. TIME SPENT ON DISCHARGE: Greater than 45 minutes. Vital Signs/I&Os Vital Signs Date Time Temp Pulse Resp B/P (MAP) Pulse Ox O2 Delivery O2 Flow Rate FiO2 09/25/17 06:00 98.0 80 18 101/59 (73) 93 Room Air Laboratory Data Labs 24H Laboratory Tests 2 09/24/17 11:35: Bedside Glucose (Misc Panel) 227H 09/24/17 20:52: Bedside Glucose (Misc Panel) 307H 09/25/17 06:42: Bedside Glucose (Misc Panel) 226H 09/25/17 10:38: FSBS Laboratory Tests Test 09/24/17 11:35 09/24/17 20:52 09/25/17 06:42 09/25/17 10:38 Range/Units Bedside Glucose (Misc Panel) 227 307 226 83-110 MG/DL Discharge Medications Scheduled Bumetanide (Bumetanide) 1 Mg Tab, 1 MG PO DAILY, (Reported) Digoxin (Digoxin) 0.125 Mg Tab, 0.125 MG PO DAILY, (Reported) Ferrous Sulfate (Ferrous Sulfate) 325 Mg Tab, 325 MG PO DAILY, (Reported) Insulin Detemir (Levemir) 1 Units/0.01 Ml Susp, 16 UNITS SC BID, (Reported) Insulin Human Lispro (Humalog Kwikpen) 100 Unit/Ml Inj, 1 DOSE SC AC, (Reported) PER SLIDING SCALE Metoprolol Succinate (Metoprolol Succinate ER) 50 Mg Tab, 50 MG PO DAILY, ( Reported) Multivitamins *[facility] STOCKED* (Thera M Plus *[facility] STOCKED*) 1 Tab Tab, 1 TAB PO DAILY, (Reported) Potassium Chloride (Klor-Con M20) 20 Meq Tabcr, 20 MEQ PO BID, (Reported) Simvastatin (Simvastatin) 10 Mg Tab, 10 MG PO QHS, (Reported) Sodium Hypochlorite (Hysept) 480 Ml Rhonda, 1 ML TOP Q24HP Tamsulosin Hydrochloride (Flomax) 0.4 Mg Cap, 0.4 MG PO DAILY, (Reported) Vitamin D (Vitamin D) 2,000 Unit Cap, 2,000 UNIT PO DAILY, (Reported) Warfarin Sod (Warfarin Sodium) 5 Mg Tab, 5 MG PO 2XW, (Reported) FRIDAY AND FRIDAY Warfarin Sod (Warfarin Sodium) 5 Mg Tab, 2.5 MG PO ASDIRECTED, (Reported) SUN, MON, WED, FRI, SAT Scheduled PRN Nystatin (Nystatin Powder) 100,000 Unit/Gm Pow, 1 DOSE TOP BID PRN for RASH, ( Reported) APPLY TO GROIN AREA Polyethylene Glycol (Miralax) 1 Pow Pow, 17 GM PO DAILY PRN for CONSTIPATION, ( Reported) Allergies Coded Allergies: Sitagliptin (Verified Allergy, Intermediate, 08/28/17) Aj Vicente MD Sep 25, 2017 10:56
[2017-09-25] MEDS: HumaLOG INSULIN (NovoLOG) PER UNIT SC SCH ×2 (10:58→11:08)
[2017-09-25] MEDS: VITAMIN D 1,000 INTERNATIONAL UNITS TABLET PO SCH (11:05)
[2017-09-25] MEDS: FERROUS SULFATE 325MG TAB PO SCH (11:06)
[2017-09-25] MEDS: DIGOXIN 0.125 MG TAB PO SCH (11:06)
[2017-09-25] MEDS: TAMSULOSIN 0.4 MG CAP PO SCH (11:07)
[2017-09-25] MEDS: MULTIVITAMINS/MINERALS THERAP 1 TAB PO SCH (11:07)
[2017-09-25] MEDS: METOPROLOL SUCC (TopROL XL) 50MG **XL** TAB PO SCH (11:07)
[2017-09-25] MEDS: LEVEMIR (INSULIN DETEMIR) 1 UNITS/0.01ML SC SCH (11:08)
[2017-09-25] MEDS: BUMETANIDE 1 MG TAB PO SCH (11:16)
[2017-10-01] MEDS ORDERED: [UNRECOGNIZED DRUG - CODE] TOP (13:34)
[2017-10-10] MEDS ORDERED: NORCOTAB PO (10:32)
--- NOTE | 2017-10-15 19:16 | REPIR ---
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 OPERATIVE PROCEDURE: Ultrasound guided right common femoral arterial cannulation, selective left common femoral arterial catheter placement with angiogram, selective left superficial femoral artery catheter placement angiogram, selective left popliteal artery catheter placement with angiogram, selective left peroneal artery catheter placement with angiogram, left peroneal artery atherectomy with 1.85 Jetstream catheter, left popliteal artery atherectomy with 1.85 mm Jetstream catheter, left peroneal artery angioplasty with 4 x 100 Maximo balloon, left popliteal artery angioplasty with 4 x 100 Maximo balloon, left popliteal artery angioplasty with 6 x 100 [place] balloon, left superficial femoral artery angioplasty with 6 x 100 balloon and exposure of the right common femoral arteriotomy. SURGEON: Nohemy Vicente MD INSURANCE ADJUSTOR: Justin Decker ANESTHESIA: Local with sedation with 2 mg of versed, 100 mcg of fentanyl and 10 mL of 2% lidocaine. CONTRAST: 2 mL FLUORO TIME: 2.22 minutes. SEDATION TIME: From 8:00 a.m. to 9:55 a.m. for a total of 115 minutes with the sedation and cardiopulmonary monitoring performed by the RN in the room under my direction. I was present for and directed the entire case. HEPARIN: 7000 units COMPLICATIONS: None DRAINS: None SPECIMENS: None. IMPLANTS: Right common femoral arterial Mynx closure device. INDICATION: The patient is a 77-year-old male who was initially admitted with cellulitis and ischemia of his left 1st and 2nd toes and forefoot who was treated with antibiotics and underwent an angiogram at that time, which demonstrated stenosis in his superficial femoral artery, popliteal artery and tibial artery with single vessel runoff into the left lower extremity. The patient developed acute on chronic renal failure after the angiogram and has subsequently undergone amputation of the left 1st and 2nd toes in guillotine fashion due to cellulitis, dry gangrene and infection. The patient is now had stabilization of his renal function and is able to undergo a left lower extremity angiogram with possible angioplasty stent and/or atherectomy for improved blood flow into the left lower extremity for healing of his amputation site. Risks, benefits and alternative treatment options were discussed with the patient. DESCRIPTION OF PROCEDURE: Ultrasound was used to guide cannulation of the right common femoral artery with the real-time concurrent ultrasound visualization of the entry of the micropuncture needle into the right common femoral artery with hard copy image preserved. The right common femoral artery was noted to be easily compressible, widely patent and showed circumferential calcification of the wall, but no significant stenosis or occlusion noted. The micropuncture wire was then advanced through the micropuncture needle which was upsized to a micropuncture sheath. A [place] wire was advanced through the micropuncture sheath which was upsized to a #5-[place] sheath. An Omni-flush catheter was advanced through the sheath which was used to guide the wire over the bifurcation and the catheter was placed in the left common femoral artery. An angiogram was performed showing stenosis in the superficial femoral artery which was approximately 95%. The catheter was advanced through the stenosis and into the distal superficial femoral artery in a selected superficial femoral artery catheter angiogram was performed showing diffuse atherosclerotic occlusive disease along the course of the popliteal artery into the peroneal artery with a high grade stenosis at the origin of the popliteal artery and the tibioperoneal trunk and extending into the peroneal artery. The anterior tibial and posterior tibial arteries occluded shortly after their takeoff. The catheter was advanced through the superficial femoral artery (SFA) into the popliteal artery and an angiogram performed. The catheter was then advanced through the occlusion in the peroneal artery and into the peroneal artery and an angiogram was performed. Once the catheter wires were used to cross the stenoses and occlusions, and placed in the peroneal artery, the #5-[place] sheath was upsized to a #7-[place] sheath. The patient was given 7000 units of heparin and an atherectomy was performed of the left peroneal and popliteal arteries with a 1.85 mm Jetstream catheter. A completion angiogram showed good result with some minor luminal irregularity and the left peroneal and popliteal arteries were angioplastied with a 4 x 100 Maximo balloon. The left popliteal and superficial femoral arteries were then angioplastied with a 6 x 100 [place] balloon. A completion angiogram showed resolution of all stenosis with good flow through the superficial femoral artery into the popliteal artery, tibioperoneal trunk and peroneal artery which was patent into the foot. A Mynx closure device was then used to close the arteriotomy in the right common femoral artery with an additional 10 minutes of adjunctive pressure applied for hemostasis. Dressings were then applied. The patient tolerated the procedure well. All instruments, sponge and needle counts were correct at the end of the case. There were no complications. Dr. Vicente was present for and directed the entire case. The patient was transferred to the holding area and then subsequently discharged in stable condition. RADIOLOGIC SUPERVISION AND INTERPRETATION: The catheter was initially placed in the left common femoral artery and angiogram performed showing stenosis in the superficial femoral artery. This was crossed and a catheter placed in the superficial femoral artery and an angiogram performed showing stenoses and occlusion in the popliteal and peroneal arteries. These were crossed with a catheter placed in the popliteal and peroneal arteries with angiograms performed, after which atherectomy was performed of the popliteal and peroneal arteries with followup angioplasty with a 4 x 100 Maximo balloon. Then the lesion in the popliteal and superficial femoral arteries were angioplastied with a 6 x 100 [place] balloon. A Mynx closure device was used to close the arteriotomy in the right common femoral artery.
== END 2017-09-25 17:15 | disposition home health service (06) | DRG 272 ==
LOC: M IRPRO 12:37 → M MSPAV 14:37 → OBSVTOIN 09-24 11:36
PROVIDERS: ADMIT Surgery Vascular Surgery; ATTEND Surgery Vascular Surgery
PROC: 04CU3ZZ Extirpation of Matter from Left Peroneal Artery, Percutaneous Approach (ICD-10-PCS; principal; 2017-09-25)
PROC: 047U341 Dilation of Left Peroneal Artery with Drug-eluting Intraluminal Device, using Drug-Coated Balloon, Percutaneous Approach (ICD-10-PCS; 2017-09-25)
PROC: 047N3ZZ Dilation of Left Popliteal Artery, Percutaneous Approach (ICD-10-PCS; 2017-09-25)
PROC: [UNRECOGNIZED PROCEDURE] (2017-09-25)
PROC: 04CN3ZZ Extirpation of Matter from Left Popliteal Artery, Percutaneous Approach (ICD-10-PCS; 2017-09-25)
DX: I70.245 Atherosclerosis of native arteries of left leg with ulceration of other part of foot (principal); I48.91 Unspecified atrial fibrillation; N18.9 Chronic kidney disease, unspecified; E11.22 Type 2 diabetes mellitus with diabetic chronic kidney disease; Z88.8 Allergy status to other drugs, medicaments and biological substances; Z79.01 Long term (current) use of anticoagulants; Z79.899 Other long term (current) drug therapy

== ENCOUNTER 2017-10-01 11:22 | Inpatient (IN) | payer MEDICARE ==
[~2017-10-01 11:22] MED LIST changes: -AUGM875T28 PO; -AZIT500T2 PO; -BUME1TAB27 PO; -BUME1TAB29 PO; -DIGO0.12 PO; -FERR325T3 PO; -FLOM5CAP PO; -GLYB/METFORM PO; -HEPARIN 1,000 UNITS/ML 10ML VIAL (FOR RADIOLOGY& DIALYSIS ONLY) As Ordered ONE; -HUMA100I5 SC; -INSUDET SC; -ISOVUE-300 61% 50ML VIAL (Q9967) As Ordered ONE; -LEVEINJ SC; -LISI-538 PO; -METO1TAB7 PO; -MIDAZOLAM INJ 2 MG/2 ML VIAL (J2250) As Ordered ONE; -NYST10PW TOP; +ONDANSETRON 4MG/2ML VIAL (J2405) IV; -PEG1POW PO; -POTA20TA PO; -PRED10TA2 PO; -PROTAMINE SULF INJ 50 MG/5 ML VIAL (J2720) As Ordered ONE; -SIMV10TA2 PO; -VALS160T3 PO; -VITA200016 PO; -VITMTA PO; -WARF-23 PO; -ZOMETA IV; -fentaNYL 100 MCG/2 ML INJECTION (J3010) As Ordered ONE
[2017-10-01 11:59] LABS: BASO % 0.5 % (0.0-1.0); EOS # 0.3 10^3/uL (0.0-0.50); EOS % 4.3 % (0.0-3.0); IMMATURE GRANULOCYTE # 0.1 10^3/uL (0-0); IMMATURE GRANULOCYTE % 1.3 % (0-0); LYMPH # 0.5 10^3/uL (1.5-4.5); LYMPH % 6.4 % (24.0-44.0); MEAN CORPUSCULAR HEMOGLOBIN 25.6 pg (27.0-33.0); MEAN CORPUSCULAR HGB CONC 30.3 g/dl (32.0-36.5); MEAN CORPUSCULAR VOLUME 84.5 fl (80.0-96.0); MONO # 0.8 10^3/uL (0.0-0.8); MONO % 10.5 % (0.0-5.0); NEUTROPHILS # 5.9 10^3/uL (1.8-7.7); PLATELET COUNT, AUTOMATED 237 10^3/uL (150-450); RED CELL DISTRIBUTION WIDTH 20.2 % (11.5-14.5); WHITE BLOOD COUNT 7.6 10^3/uL (4.0-10.0)
[2017-10-01 12:09] LABS: INR 2.91
[2017-10-01 13:11] LABS: ALBUMIN 2.4 GM/DL (3.2-5.2); ALBUMIN/GLOBULIN RATIO 0.56 (1.00-1.93); ALKALINE PHOSPHATASE 135 U/L (45-117); ALT/SGPT 16 U/L (12-78); ANION GAP 9 MEQ/L (8-16); AST/SGOT 13 U/L (7-37); BILIRUBIN,DIRECT 0.5 MG/DL (0.0-0.2); BILIRUBIN,TOTAL 0.7 MG/DL (0.2-1.0); BLOOD UREA NITROGEN 31 MG/DL (7-18); CARBON DIOXIDE LEVEL 26 MEQ/L (21-32); CHLORIDE LEVEL 103 MEQ/L (98-107); CREATININE FOR GFR 1.39 MG/DL (0.70-1.30); GLOMERULAR FILTRATION RATE 52.6 (>42); GLUCOSE, FASTING 195 MG/DL (83-110); POTASSIUM SERUM 4.6 MEQ/L (3.5-5.1); SODIUM LEVEL 138 MEQ/L (136-145); TOTAL PROTEIN 6.7 GM/DL (6.4-8.2)
[2017-10-01] MEDS: PIPERACILLIN/TAZOBACTAM SOD 3.375 GM in APPROPRIATE DILUENT 1 EA IV ×2 (15:48→22:38)
[2017-10-01] MEDS ORDERED: GLUCAGON FOR INJ 1 MG VIAL (J1610) SC (17:30)
[2017-10-01] MEDS ORDERED: DEXTROSE 50% 50 ML SYRINGE IV (17:30)
[2017-10-01] MEDS ORDERED: GLUCOSE 4 GM CHEW TABLET PO (17:30)
[2017-10-01] MEDS: HumaLOG INSULIN (NovoLOG) PER UNIT SC ×2 (17:33→20:08)
[2017-10-02] MEDS: PIPERACILLIN/TAZOBACTAM SOD 3.375 GM in APPROPRIATE DILUENT 1 EA IV ×3 (06:22→23:14)
[2017-10-02] MEDS: HumaLOG INSULIN (NovoLOG) PER UNIT SC ×4 (07:54→20:39)
[2017-10-02] MEDS ORDERED: NYSTATIN 100,000 UNITS/GM TOPICAL PWD 15 GM TOP (09:30)
[2017-10-02] MEDS ORDERED: MIRALAX *UNIT DOSE* 17GM PACKET PO (09:30)
[2017-10-02] MEDS: VITAMIN D 1,000 INTERNATIONAL UNITS TABLET PO (10:19)
[2017-10-02] MEDS: METOPROLOL SUCC (TopROL XL) 50MG **XL** TAB PO (10:19)
[2017-10-02] MEDS: FERROUS SULFATE 325MG TAB PO (10:19)
[2017-10-02] MEDS: MULTIVITAMINS/MINERALS THERAP 1 TAB PO (10:20)
[2017-10-02] MEDS: DIGOXIN 0.125 MG TAB PO (10:20)
[2017-10-02] MEDS: TAMSULOSIN 0.4 MG CAP PO (10:20)
[2017-10-02] MEDS: BUMETANIDE 1 MG TAB PO (10:20)
[2017-10-02] MEDS: LEVEMIR (INSULIN DETEMIR) 1 UNITS/0.01ML SC ×2 (10:20→20:47)
[2017-10-02] MEDS: DAKIN'S 0.25% HALF-STRENGTH SOLN 480 ML TOP (10:21)
[2017-10-02] MEDS ORDERED: MIDAZOLAM INJ 2 MG/2 ML VIAL (J2250) As Ordered (16:46)
[2017-10-02] MEDS ORDERED: fentaNYL 100 MCG/2 ML INJECTION (J3010) As Ordered (16:54)
[2017-10-02] MEDS ORDERED: PROPOFOL 200 MG/20 ML VIAL As Ordered (16:59)
[2017-10-02] MEDS ORDERED: LIDOCAINE 2% INJ 100 MG/5 ML SDV (FOR ANES.) As Ordered (16:59)
[2017-10-02] MEDS ORDERED: PHENYLephrine HCL 500 MCG/5 ML (100MCG/ML) SYRINGE (J2370) As Ordered (17:09)
[2017-10-02] MEDS: LIDOCAINE 1% MDV 20ML VIAL As Ordered (17:12)
[2017-10-02] MEDS: BUPIVACAINE HCL 0.5% 30 ML VIAL As Ordered (17:12)
[2017-10-02] MEDS ORDERED: fentaNYL 100 MCG/2 ML INJECTION (J3010) IV (18:45)
[2017-10-02] MEDS: NS 250 ML IV (18:45)
[2017-10-02] MEDS: LR 1,000 ML IV (18:45)
[2017-10-02] MEDS ORDERED: ONDANSETRON 4MG/2ML VIAL (J2405) IV (18:45)
[2017-10-02] MEDS: SIMVASTATIN 10 MG TAB PO (20:46)
[2017-10-02] MEDS: WARFARIN SOD 5 MG TAB PO (20:46)
[2017-10-03] MEDS: PIPERACILLIN/TAZOBACTAM SOD 3.375 GM in APPROPRIATE DILUENT 1 EA IV ×3 (06:15→22:42)
[2017-10-03] MEDS: DAKIN'S 0.25% HALF-STRENGTH SOLN 480 ML TOP (08:47)
[2017-10-03] MEDS: MULTIVITAMINS/MINERALS THERAP 1 TAB PO (08:51)
[2017-10-03] MEDS: METOPROLOL SUCC (TopROL XL) 50MG **XL** TAB PO (08:51)
[2017-10-03] MEDS: VITAMIN D 1,000 INTERNATIONAL UNITS TABLET PO (08:51)
[2017-10-03] MEDS: TAMSULOSIN 0.4 MG CAP PO (08:51)
[2017-10-03] MEDS: FERROUS SULFATE 325MG TAB PO (08:51)
[2017-10-03] MEDS: BUMETANIDE 1 MG TAB PO (08:51)
[2017-10-03] MEDS: DIGOXIN 0.125 MG TAB PO (08:51)
[2017-10-03] MEDS: HumaLOG INSULIN (NovoLOG) PER UNIT SC ×4 (08:52→20:45)
[2017-10-03] MEDS: LEVEMIR (INSULIN DETEMIR) 1 UNITS/0.01ML SC ×2 (08:52→20:49)
[2017-10-03] MEDS: WARFARIN SOD 2.5 MG TAB PO (16:57)
[2017-10-03] MEDS: SIMVASTATIN 10 MG TAB PO (20:49)
[2017-10-03] MEDS: LORazepam 2 MG/ML VIAL (J2060) IV (21:41)
[2017-10-04] MEDS: PIPERACILLIN/TAZOBACTAM SOD 3.375 GM in APPROPRIATE DILUENT 1 EA IV ×3 (06:20→22:47)
[2017-10-04] MEDS: HumaLOG INSULIN (NovoLOG) PER UNIT SC ×4 (07:39→20:11)
[2017-10-04] MEDS: BUMETANIDE 1 MG TAB PO (09:41)
[2017-10-04] MEDS: VITAMIN D 1,000 INTERNATIONAL UNITS TABLET PO (09:41)
[2017-10-04] MEDS: TAMSULOSIN 0.4 MG CAP PO (09:42)
[2017-10-04] MEDS: DIGOXIN 0.125 MG TAB PO (09:42)
[2017-10-04] MEDS: FERROUS SULFATE 325MG TAB PO (09:42)
[2017-10-04] MEDS: METOPROLOL SUCC (TopROL XL) 50MG **XL** TAB PO (09:45)
[2017-10-04] MEDS: MULTIVITAMINS/MINERALS THERAP 1 TAB PO (09:46)
[2017-10-04] MEDS: LEVEMIR (INSULIN DETEMIR) 1 UNITS/0.01ML SC ×2 (09:47→20:21)
[2017-10-04] MEDS: WARFARIN SOD 2.5 MG TAB PO (17:42)
[2017-10-04] MEDS: SIMVASTATIN 10 MG TAB PO (20:15)
[2017-10-05] MEDS: NORCO, ANEXSIA 5/325MG TABLET (HYDROcodone/ACETAMINOPHEN) PO ×2 (06:10→22:29)
[2017-10-05] MEDS: PIPERACILLIN/TAZOBACTAM SOD 3.375 GM in APPROPRIATE DILUENT 1 EA IV ×3 (06:10→23:07)
[2017-10-05] MEDS: BUMETANIDE 1 MG TAB PO (08:17)
[2017-10-05] MEDS: METOPROLOL SUCC (TopROL XL) 50MG **XL** TAB PO (08:18)
[2017-10-05] MEDS: DIGOXIN 0.125 MG TAB PO (08:18)
[2017-10-05] MEDS: VITAMIN D 1,000 INTERNATIONAL UNITS TABLET PO (08:19)
[2017-10-05] MEDS: TAMSULOSIN 0.4 MG CAP PO (08:19)
[2017-10-05] MEDS: MULTIVITAMINS/MINERALS THERAP 1 TAB PO (08:19)
[2017-10-05] MEDS: FERROUS SULFATE 325MG TAB PO (08:19)
[2017-10-05] MEDS: HumaLOG INSULIN (NovoLOG) PER UNIT SC ×4 (08:20→20:31)
[2017-10-05] MEDS: LEVEMIR (INSULIN DETEMIR) 1 UNITS/0.01ML SC ×2 (08:21→20:38)
[2017-10-05] MEDS: WARFARIN SOD 2.5 MG TAB PO (17:29)
[2017-10-05] MEDS: SIMVASTATIN 10 MG TAB PO (20:37)
[2017-10-06] MEDS: PIPERACILLIN/TAZOBACTAM SOD 3.375 GM in APPROPRIATE DILUENT 1 EA IV ×3 (06:45→22:32)
[2017-10-06] MEDS: LEVEMIR (INSULIN DETEMIR) 1 UNITS/0.01ML SC ×2 (09:00→20:54)
[2017-10-06] MEDS: MULTIVITAMINS/MINERALS THERAP 1 TAB PO (10:27)
[2017-10-06] MEDS: VITAMIN D 1,000 INTERNATIONAL UNITS TABLET PO (10:27)
[2017-10-06] MEDS: TAMSULOSIN 0.4 MG CAP PO (10:27)
[2017-10-06] MEDS: BUMETANIDE 1 MG TAB PO (10:27)
[2017-10-06] MEDS: DIGOXIN 0.125 MG TAB PO (10:28)
[2017-10-06] MEDS: FERROUS SULFATE 325MG TAB PO (10:29)
[2017-10-06] MEDS: METOPROLOL SUCC (TopROL XL) 50MG **XL** TAB PO (10:29)
[2017-10-06] MEDS: HumaLOG INSULIN (NovoLOG) PER UNIT SC ×4 (10:32→20:46)
[2017-10-06] MEDS: WARFARIN SOD 2.5 MG TAB PO (18:00)
[2017-10-06] MEDS: SIMVASTATIN 10 MG TAB PO (20:54)
[2017-10-06] MEDS: NORCO, ANEXSIA 5/325MG TABLET (HYDROcodone/ACETAMINOPHEN) PO (22:32)
[2017-10-07] MEDS: PIPERACILLIN/TAZOBACTAM SOD 3.375 GM in APPROPRIATE DILUENT 1 EA IV ×3 (06:10→22:48)
[2017-10-07] MEDS: HumaLOG INSULIN (NovoLOG) PER UNIT SC ×4 (08:43→21:00)
[2017-10-07] MEDS: VITAMIN D 1,000 INTERNATIONAL UNITS TABLET PO (08:44)
[2017-10-07] MEDS: MULTIVITAMINS/MINERALS THERAP 1 TAB PO (08:44)
[2017-10-07] MEDS: BUMETANIDE 1 MG TAB PO (08:44)
[2017-10-07] MEDS: FERROUS SULFATE 325MG TAB PO (08:44)
[2017-10-07] MEDS: METOPROLOL SUCC (TopROL XL) 50MG **XL** TAB PO (08:45)
[2017-10-07] MEDS: TAMSULOSIN 0.4 MG CAP PO (08:45)
[2017-10-07] MEDS: DIGOXIN 0.125 MG TAB PO (08:46)
[2017-10-07] MEDS: LEVEMIR (INSULIN DETEMIR) 1 UNITS/0.01ML SC ×2 (08:46→21:39)
[2017-10-07 13:28] LABS: MEAN CORPUSCULAR HEMOGLOBIN 25.4 pg (27.0-33.0); MEAN CORPUSCULAR HGB CONC 30.3 g/dl (32.0-36.5); MEAN CORPUSCULAR VOLUME 83.9 fl (80.0-96.0); PLATELET COUNT, AUTOMATED 191 10^3/uL (150-450); RED CELL DISTRIBUTION WIDTH 19.9 % (11.5-14.5); WHITE BLOOD COUNT 6.8 10^3/uL (4.0-10.0)
[2017-10-07 14:19] LABS: ANION GAP 7 MEQ/L (8-16); BLOOD UREA NITROGEN 30 MG/DL (7-18); CALCIUM LEVEL 8.3 MG/DL (8.8-10.2); CARBON DIOXIDE LEVEL 29 MEQ/L (21-32); CHLORIDE LEVEL 104 MEQ/L (98-107); CREATININE FOR GFR 1.48 MG/DL (0.70-1.30); GLOMERULAR FILTRATION RATE 48.9 (>42); GLUCOSE, FASTING 186 MG/DL (83-110); POTASSIUM SERUM 3.8 MEQ/L (3.5-5.1); SODIUM LEVEL 140 MEQ/L (136-145)
[2017-10-07] MEDS: WARFARIN SOD 5 MG TAB PO (16:33)
[2017-10-07] MEDS: BACITRACIN OINT 30GM TOP (21:38)
[2017-10-07] MEDS: SIMVASTATIN 10 MG TAB PO (21:39)
[2017-10-08] MEDS: NORCO, ANEXSIA 5/325MG TABLET (HYDROcodone/ACETAMINOPHEN) PO ×2 (05:47→14:55)
[2017-10-08] MEDS: PIPERACILLIN/TAZOBACTAM SOD 3.375 GM in APPROPRIATE DILUENT 1 EA IV ×3 (06:16→22:14)
[2017-10-08 08:02] LABS: MEAN CORPUSCULAR HEMOGLOBIN 25.4 pg (27.0-33.0); MEAN CORPUSCULAR HGB CONC 30.5 g/dl (32.0-36.5); MEAN CORPUSCULAR VOLUME 83.4 fl (80.0-96.0); PLATELET COUNT, AUTOMATED 213 10^3/uL (150-450); RED CELL DISTRIBUTION WIDTH 19.9 % (11.5-14.5); WHITE BLOOD COUNT 6.9 10^3/uL (4.0-10.0)
[2017-10-08 08:13] LABS: INR 3.75
[2017-10-08] MEDS: BUMETANIDE 1 MG TAB PO (08:37)
[2017-10-08] MEDS: FERROUS SULFATE 325MG TAB PO (08:38)
[2017-10-08] MEDS: VITAMIN D 1,000 INTERNATIONAL UNITS TABLET PO (08:38)
[2017-10-08] MEDS: METOPROLOL SUCC (TopROL XL) 50MG **XL** TAB PO (08:38)
[2017-10-08] MEDS: MULTIVITAMINS/MINERALS THERAP 1 TAB PO (08:38)
[2017-10-08] MEDS: HumaLOG INSULIN (NovoLOG) PER UNIT SC ×4 (08:39→20:13)
[2017-10-08] MEDS: DIGOXIN 0.125 MG TAB PO (08:39)
[2017-10-08] MEDS: TAMSULOSIN 0.4 MG CAP PO (08:39)
[2017-10-08] MEDS: LEVEMIR (INSULIN DETEMIR) 1 UNITS/0.01ML SC ×2 (08:39→21:35)
[2017-10-08] MEDS: BACITRACIN OINT 30GM TOP ×2 (08:42→21:35)
[2017-10-08 08:49] LABS: ANION GAP 8 MEQ/L (8-16); BLOOD UREA NITROGEN 33 MG/DL (7-18); CALCIUM LEVEL 8.3 MG/DL (8.8-10.2); CARBON DIOXIDE LEVEL 29 MEQ/L (21-32); CHLORIDE LEVEL 103 MEQ/L (98-107); CREATININE FOR GFR 1.51 MG/DL (0.70-1.30); GLOMERULAR FILTRATION RATE 47.8 (>42); GLUCOSE, FASTING 158 MG/DL (83-110); POTASSIUM SERUM 3.7 MEQ/L (3.5-5.1); SODIUM LEVEL 140 MEQ/L (136-145)
[2017-10-08] MEDS: WARFARIN SOD 2.5 MG TAB PO (14:29)
[2017-10-08] MEDS: SIMVASTATIN 10 MG TAB PO (21:34)
[2017-10-08] MEDS: zolPIDEM TARTRATE 5 MG TAB PO (22:13)
[2017-10-09 00:05] LABS: IMMEDIATE SPIN CROSSMATCH 1 2
[2017-10-09] MEDS: FUROSEMIDE 40 MG/4 ML VIAL (J1940) IV (03:56)
[2017-10-09] MEDS: PIPERACILLIN/TAZOBACTAM SOD 3.375 GM in APPROPRIATE DILUENT 1 EA IV ×3 (06:03→22:31)
[2017-10-09 08:13] LABS: MEAN CORPUSCULAR HEMOGLOBIN 25.7 pg (27.0-33.0); MEAN CORPUSCULAR HGB CONC 30.9 g/dl (32.0-36.5); MEAN CORPUSCULAR VOLUME 83.2 fl (80.0-96.0); PLATELET COUNT, AUTOMATED 180 10^3/uL (150-450); RED CELL DISTRIBUTION WIDTH 18.7 % (11.5-14.5); WHITE BLOOD COUNT 7.2 10^3/uL (4.0-10.0)
[2017-10-09 08:27] LABS: INR 3.09
[2017-10-09 08:43] LABS: ANION GAP 6 MEQ/L (8-16); BLOOD UREA NITROGEN 31 MG/DL (7-18); CARBON DIOXIDE LEVEL 32 MEQ/L (21-32); CHLORIDE LEVEL 105 MEQ/L (98-107); CREATININE FOR GFR 1.37 MG/DL (0.70-1.30); GLOMERULAR FILTRATION RATE 53.5 (>42); GLUCOSE, FASTING 90 MG/DL (83-110); POTASSIUM SERUM 3.6 MEQ/L (3.5-5.1); SODIUM LEVEL 143 MEQ/L (136-145)
[2017-10-09] MEDS: LEVEMIR (INSULIN DETEMIR) 1 UNITS/0.01ML SC ×2 (09:20→20:40)
[2017-10-09] MEDS: FERROUS SULFATE 325MG TAB PO (09:21)
[2017-10-09] MEDS: BUMETANIDE 1 MG TAB PO (09:21)
[2017-10-09] MEDS: HumaLOG INSULIN (NovoLOG) PER UNIT SC ×4 (09:21→20:37)
[2017-10-09] MEDS: VITAMIN D 1,000 INTERNATIONAL UNITS TABLET PO (09:22)
[2017-10-09] MEDS: DIGOXIN 0.125 MG TAB PO (09:23)
[2017-10-09] MEDS: MULTIVITAMINS/MINERALS THERAP 1 TAB PO (09:23)
[2017-10-09] MEDS: TAMSULOSIN 0.4 MG CAP PO (09:23)
[2017-10-09] MEDS: METOPROLOL SUCC (TopROL XL) 50MG **XL** TAB PO (09:23)
[2017-10-09] MEDS: BACITRACIN OINT 30GM TOP ×2 (09:24→20:41)
[2017-10-09] MEDS: WARFARIN SOD 5 MG TAB PO (18:34)
[2017-10-09] MEDS: SIMVASTATIN 10 MG TAB PO (20:40)
[2017-10-10] MEDS: PIPERACILLIN/TAZOBACTAM SOD 3.375 GM in APPROPRIATE DILUENT 1 EA IV ×2 (06:27→13:53)
[2017-10-10] MEDS: MULTIVITAMINS/MINERALS THERAP 1 TAB PO (09:01)
[2017-10-10] MEDS: FERROUS SULFATE 325MG TAB PO (09:01)
[2017-10-10] MEDS: VITAMIN D 1,000 INTERNATIONAL UNITS TABLET PO (09:01)
[2017-10-10] MEDS: BUMETANIDE 1 MG TAB PO (09:01)
[2017-10-10] MEDS: TAMSULOSIN 0.4 MG CAP PO (09:01)
[2017-10-10] MEDS: METOPROLOL SUCC (TopROL XL) 50MG **XL** TAB PO (09:02)
[2017-10-10] MEDS: DIGOXIN 0.125 MG TAB PO (09:02)
[2017-10-10] MEDS: HumaLOG INSULIN (NovoLOG) PER UNIT SC ×3 (09:03→17:30)
[2017-10-10] MEDS: BACITRACIN OINT 30GM TOP (09:03)
[2017-10-10] MEDS: LEVEMIR (INSULIN DETEMIR) 1 UNITS/0.01ML SC (09:03)
[2017-10-10 09:48] LABS: MEAN CORPUSCULAR HEMOGLOBIN 25.8 pg (27.0-33.0); MEAN CORPUSCULAR HGB CONC 30.9 g/dl (32.0-36.5); MEAN CORPUSCULAR VOLUME 83.7 fl (80.0-96.0); PLATELET COUNT, AUTOMATED 185 10^3/uL (150-450); RED CELL DISTRIBUTION WIDTH 19.3 % (11.5-14.5); WHITE BLOOD COUNT 7.5 10^3/uL (4.0-10.0)
[2017-10-10 09:59] LABS: INR 3.05
[2017-10-10 10:32] LABS: ANION GAP 7 MEQ/L (8-16); BLOOD UREA NITROGEN 28 MG/DL (7-18); CALCIUM LEVEL 8.3 MG/DL (8.8-10.2); CARBON DIOXIDE LEVEL 30 MEQ/L (21-32); CHLORIDE LEVEL 103 MEQ/L (98-107); CREATININE FOR GFR 1.35 MG/DL (0.70-1.30); GLOMERULAR FILTRATION RATE 54.4 (>42); GLUCOSE, FASTING 172 MG/DL (83-110); POTASSIUM SERUM 3.6 MEQ/L (3.5-5.1); SODIUM LEVEL 140 MEQ/L (136-145)
[2017-10-10] MEDS: WARFARIN SOD 2.5 MG TAB PO (15:22)
== END 2017-10-10 18:11 | disposition home health service (06) | DRG 475 ==
LOC: M MSPAV 11:22
PROC: 0X610ZZ Detachment at Left Forequarter, Open Approach (ICD-10-PCS; principal; 2017-10-02 15:30)
DX: T87.54 Necrosis of amputation stump, left lower extremity (principal); I70.262 Atherosclerosis of native arteries of extremities with gangrene, left leg; E11.22 Type 2 diabetes mellitus with diabetic chronic kidney disease; N18.9 Chronic kidney disease, unspecified; I48.91 Unspecified atrial fibrillation; I12.9 Hypertensive chronic kidney disease with stage 1 through stage 4 chronic kidney disease, or unspecified chronic kidney disease; D64.9 Anemia, unspecified; E78.00 Pure hypercholesterolemia, unspecified; Z86.718 Personal history of other venous thrombosis and embolism

== ENCOUNTER → 2017-10-23 | Outpatient (REF) | payer MEDICARE | LOC: M SHH 14:12 | DX: Z51.81 Encounter for therapeutic drug level monitoring (principal); Z79.01 Long term (current) use of anticoagulants | CPT/HCPCS: 85610 ==

== ENCOUNTER 2017-10-30 17:14 | Inpatient (IN) | payer MEDICARE ==
[2017-10-30] MEDS: HumaLOG INSULIN (NovoLOG) PER UNIT SC (21:00)
[2017-10-30] MEDS: PIPERACILLIN/TAZOBACTAM SOD 3.375 GM in APPROPRIATE DILUENT 1 EA IV (22:18)
[2017-10-31] MEDS ORDERED: NYSTATIN 100,000 UNITS/GM TOPICAL PWD 15 GM TOP (00:15)
[2017-10-31] MEDS ORDERED: MIRALAX *UNIT DOSE* 17GM PACKET PO (00:15)
[2017-10-31] MEDS: TAMSULOSIN 0.4 MG CAP PO ×3 (01:01→20:47)
[2017-10-31] MEDS: BUMETANIDE 1 MG TAB PO ×3 (01:01→20:47)
[2017-10-31] MEDS: SIMVASTATIN 10 MG TAB PO ×2 (01:02→20:47)
[2017-10-31 01:10] LABS: PROTHROMBIN TIME 54.7 SECONDS (12.4-14.5)
[2017-10-31 01:19] LABS: INR 5.69
[2017-10-31] MEDS ORDERED: GLUCAGON FOR INJ 1 MG VIAL (J1610) SC (02:00)
[2017-10-31] MEDS ORDERED: DEXTROSE 50% 50 ML SYRINGE IV (02:00)
[2017-10-31] MEDS ORDERED: GLUCOSE 4 GM CHEW TABLET PO (02:00)
[2017-10-31] MEDS: PIPERACILLIN/TAZOBACTAM SOD 3.375 GM in APPROPRIATE DILUENT 1 EA IV ×3 (05:46→21:43)
[2017-10-31] MEDS ORDERED: HumaLOG INSULIN (NovoLOG) PER UNIT SC (07:30)
[2017-10-31] MEDS: MULTIVITAMINS/MINERALS THERAP 1 TAB PO (08:18)
[2017-10-31] MEDS: LEVEMIR (INSULIN DETEMIR) 1 UNITS/0.01ML SC ×2 (08:18→20:47)
[2017-10-31] MEDS: HumaLOG INSULIN (NovoLOG) PER UNIT SC ×4 (08:18→21:00)
[2017-10-31] MEDS: DIGOXIN 0.125 MG TAB PO (08:19)
[2017-10-31] MEDS: VITAMIN D 1,000 INTERNATIONAL UNITS TABLET PO (08:19)
[2017-10-31] MEDS: METOPROLOL SUCC *XL* 25MG TAB (TopROL *XL*) PO (08:19)
[2017-10-31] MEDS: FERROUS SULFATE 325MG TAB PO (08:19)
[2017-10-31] MEDS ORDERED: WARFARIN SOD 5 MG TAB PO (09:00)
[2017-10-31 10:45] LABS: HEMATOCRIT 24.4 % (42.0-52.0); HEMOGLOBIN 7.5 g/dl (14.0-18.0); MEAN CORPUSCULAR HEMOGLOBIN 25.2 pg (27.0-33.0); MEAN CORPUSCULAR HGB CONC 30.7 g/dl (32.0-36.5); MEAN CORPUSCULAR VOLUME 81.9 fl (80.0-96.0); PLATELET COUNT, AUTOMATED 186 10^3/uL (150-450); RED BLOOD COUNT 2.98 10^6/uL (4.30-6.10); RED CELL DISTRIBUTION WIDTH 20.2 % (11.5-14.5); WHITE BLOOD COUNT 9.1 10^3/uL (4.0-10.0)
[2017-10-31 11:09] LABS: ANION GAP 7 MEQ/L (8-16); BLOOD UREA NITROGEN 38 MG/DL (7-18); CALCIUM LEVEL 7.9 MG/DL (8.8-10.2); CARBON DIOXIDE LEVEL 28 MEQ/L (21-32); CHLORIDE LEVEL 102 MEQ/L (98-107); CREATININE FOR GFR 1.34 MG/DL (0.70-1.30); GLOMERULAR FILTRATION RATE 54.9 (>42); GLUCOSE, FASTING 306 MG/DL (83-110); POTASSIUM SERUM 4.2 MEQ/L (3.5-5.1); SODIUM LEVEL 137 MEQ/L (136-145)
[2017-10-31] MEDS: EUCERIN 120GM CREAM TOP ×2 (12:35→20:48)
[2017-10-31 17:27] LABS: BEDSIDE GLUCOSE 234 MG/DL (83-110)
[2017-10-31] MEDS: FUROSEMIDE 40 MG/4 ML VIAL (J1940) IV (20:01)
[2017-10-31 20:12] LABS: IMMEDIATE SPIN CROSSMATCH 1 2
[2017-10-31 21:50] LABS: BEDSIDE GLUCOSE 203 MG/DL (83-110)
[2017-11-01] MEDS: PIPERACILLIN/TAZOBACTAM SOD 3.375 GM in APPROPRIATE DILUENT 1 EA IV ×3 (05:46→21:47)
[2017-11-01 06:40] LABS: HEMOGLOBIN 8.8 g/dl (14.0-18.0); MEAN CORPUSCULAR HEMOGLOBIN 25.4 pg (27.0-33.0); MEAN CORPUSCULAR HGB CONC 31.4 g/dl (32.0-36.5); MEAN CORPUSCULAR VOLUME 80.9 fl (80.0-96.0); PLATELET COUNT, AUTOMATED 197 10^3/uL (150-450); RED BLOOD COUNT 3.46 10^6/uL (4.30-6.10); RED CELL DISTRIBUTION WIDTH 19.3 % (11.5-14.5); WHITE BLOOD COUNT 9.1 10^3/uL (4.0-10.0)
[2017-11-01 06:53] LABS: PROTHROMBIN TIME 53.3 SECONDS (12.4-14.5)
[2017-11-01 06:58] LABS: INR 5.51
[2017-11-01 07:03] LABS: ANION GAP 7 MEQ/L (8-16); BLOOD UREA NITROGEN 39 MG/DL (7-18); CALCIUM LEVEL 8.1 MG/DL (8.8-10.2); CARBON DIOXIDE LEVEL 28 MEQ/L (21-32); CHLORIDE LEVEL 103 MEQ/L (98-107); CREATININE FOR GFR 1.35 MG/DL (0.70-1.30); GLOMERULAR FILTRATION RATE 54.4 (>42); GLUCOSE, FASTING 209 MG/DL (83-110); POTASSIUM SERUM 3.6 MEQ/L (3.5-5.1); SODIUM LEVEL 138 MEQ/L (136-145)
[2017-11-01] MEDS: FERROUS SULFATE 325MG TAB PO (09:58)
[2017-11-01] MEDS: TAMSULOSIN 0.4 MG CAP PO ×2 (09:59→21:49)
[2017-11-01] MEDS: BUMETANIDE 1 MG TAB PO ×2 (09:59→21:57)
[2017-11-01] MEDS: MULTIVITAMINS/MINERALS THERAP 1 TAB PO (10:02)
[2017-11-01] MEDS: DIGOXIN 0.125 MG TAB PO (10:02)
[2017-11-01] MEDS: LEVEMIR (INSULIN DETEMIR) 1 UNITS/0.01ML SC ×2 (10:03→21:48)
[2017-11-01] MEDS: METOPROLOL SUCC *XL* 25MG TAB (TopROL *XL*) PO (10:03)
[2017-11-01] MEDS: EUCERIN 120GM CREAM TOP ×2 (10:03→21:49)
[2017-11-01] MEDS: VITAMIN D 1,000 INTERNATIONAL UNITS TABLET PO (10:03)
[2017-11-01] MEDS: HumaLOG INSULIN (NovoLOG) PER UNIT SC ×4 (10:04→21:48)
[2017-11-01 11:48] LABS: BEDSIDE GLUCOSE 246 MG/DL (83-110)
[2017-11-01 17:09] LABS: BEDSIDE GLUCOSE 198 MG/DL (83-110)
[2017-11-01 20:39] LABS: BEDSIDE GLUCOSE 284 MG/DL (83-110)
[2017-11-01] MEDS: SIMVASTATIN 10 MG TAB PO (21:48)
[2017-11-02] MEDS: PIPERACILLIN/TAZOBACTAM SOD 3.375 GM in APPROPRIATE DILUENT 1 EA IV ×3 (06:01→21:35)
[2017-11-02 06:31] LABS: BEDSIDE GLUCOSE 107 MG/DL (83-110)
[2017-11-02 06:47] LABS: PROTHROMBIN TIME 45.2 SECONDS (12.4-14.5)
[2017-11-02] MEDS: HumaLOG INSULIN (NovoLOG) PER UNIT SC ×4 (07:30→21:36)
[2017-11-02] MEDS: LEVEMIR (INSULIN DETEMIR) 1 UNITS/0.01ML SC ×2 (09:00→20:36)
[2017-11-02] MEDS: EUCERIN 120GM CREAM TOP ×2 (09:00→20:36)
[2017-11-02] MEDS: TAMSULOSIN 0.4 MG CAP PO ×2 (09:15→20:36)
[2017-11-02] MEDS: METOPROLOL SUCC *XL* 25MG TAB (TopROL *XL*) PO (09:15)
[2017-11-02] MEDS: BUMETANIDE 1 MG TAB PO ×2 (09:16→20:36)
[2017-11-02] MEDS ORDERED: fentaNYL 100 MCG/2 ML INJECTION (J3010) As Ordered (11:44)
[2017-11-02] MEDS ORDERED: MIDAZOLAM INJ 2 MG/2 ML VIAL (J2250) As Ordered (11:44)
[2017-11-02] MEDS ORDERED: PROPOFOL 200 MG/20 ML VIAL As Ordered (11:44)
[2017-11-02] MEDS ORDERED: LIDOCAINE 2% INJ 100 MG/5 ML SDV (FOR ANES.) As Ordered (11:44)
[2017-11-02] MEDS ORDERED: METOCLOPRAMIDE INJ 10MG/2ML VIAL (J2765) IV (12:30)
[2017-11-02] MEDS ORDERED: ONDANSETRON 4MG/2ML VIAL (J2405) IV (12:30)
[2017-11-02] MEDS ORDERED: MEPERIDINE INJ 25 MG/ML VIAL (J2175) IV (12:30)
[2017-11-02] MEDS: LR 1,000 ML IV (12:30)
[2017-11-02] MEDS ORDERED: fentaNYL 100 MCG/2 ML INJECTION (J3010) IV (12:30)
[2017-11-02] MEDS ORDERED: PERCOCET 5MG/325MG TAB PO (12:30)
[2017-11-02 13:13] LABS: BEDSIDE GLUCOSE 94 MG/DL (83-110)
[2017-11-02] MEDS: FERROUS SULFATE 325MG TAB PO (15:38)
[2017-11-02] MEDS: VITAMIN D 1,000 INTERNATIONAL UNITS TABLET PO (15:39)
[2017-11-02] MEDS: DIGOXIN 0.125 MG TAB PO (15:39)
[2017-11-02] MEDS: MULTIVITAMINS/MINERALS THERAP 1 TAB PO (15:39)
[2017-11-02 19:00] LABS: BEDSIDE GLUCOSE 188 MG/DL (83-110)
[2017-11-02] MEDS: SIMVASTATIN 10 MG TAB PO (20:36)
[2017-11-02 21:29] LABS: BEDSIDE GLUCOSE 288 MG/DL (83-110)
[2017-11-03] MEDS: PIPERACILLIN/TAZOBACTAM SOD 3.375 GM in APPROPRIATE DILUENT 1 EA IV ×3 (06:18→21:44)
[2017-11-03 06:33] LABS: INR 4.08; PROTHROMBIN TIME 41.7 SECONDS (12.4-14.5)
[2017-11-03] MEDS: LEVEMIR (INSULIN DETEMIR) 1 UNITS/0.01ML SC ×2 (08:30→21:44)
[2017-11-03] MEDS: SERTRALINE 100 MG TAB PO (09:00)
[2017-11-03] MEDS: EUCERIN 120GM CREAM TOP ×2 (09:00→21:00)
[2017-11-03 10:19] LABS: BEDSIDE GLUCOSE 240 MG/DL (83-110)
[2017-11-03] MEDS: HumaLOG INSULIN (NovoLOG) PER UNIT SC ×4 (10:27→20:48)
[2017-11-03] MEDS: BUMETANIDE 1 MG TAB PO ×2 (10:27→21:43)
[2017-11-03] MEDS: FERROUS SULFATE 325MG TAB PO (10:28)
[2017-11-03] MEDS: TAMSULOSIN 0.4 MG CAP PO ×2 (10:28→21:44)
[2017-11-03] MEDS: VITAMIN D 1,000 INTERNATIONAL UNITS TABLET PO (10:28)
[2017-11-03] MEDS: MULTIVITAMINS/MINERALS THERAP 1 TAB PO (10:28)
[2017-11-03] MEDS: METOPROLOL SUCC *XL* 25MG TAB (TopROL *XL*) PO (10:31)
[2017-11-03] MEDS: DIGOXIN 0.125 MG TAB PO (10:31)
[2017-11-03 12:21] LABS: BEDSIDE GLUCOSE 264 MG/DL (83-110)
[2017-11-03] MEDS ORDERED: MIDAZOLAM INJ 2 MG/2 ML VIAL (J2250) As Ordered (16:44)
[2017-11-03] MEDS ORDERED: ROCURONIUM BROMIDE 50 MG/5 ML VIAL As Ordered (16:44)
[2017-11-03] MEDS ORDERED: PROPOFOL 200 MG/20 ML VIAL As Ordered (16:44)
[2017-11-03] MEDS ORDERED: fentaNYL 100 MCG/2 ML INJECTION (J3010) As Ordered (16:45)
[2017-11-03] MEDS ORDERED: ETOMIDATE INJ 20MG/10ML VIAL As Ordered (17:12)
[2017-11-03] MEDS ORDERED: ePHEDrine SULFATE 25 MG/5 ML(5MG/ML) SYRINGE As Ordered ×2 (17:16→17:23)
[2017-11-03] MEDS ORDERED: PHENYLephrine HCL 500 MCG/5 ML (100MCG/ML) SYRINGE (J2370) As Ordered ×2 (17:23)
[2017-11-03] MEDS ORDERED: NEOSTIGMINE 10 MG/10 ML VIAL (J2710) As Ordered (17:26)
[2017-11-03] MEDS ORDERED: ONDANSETRON 4MG/2ML VIAL (J2405) As Ordered (17:26)
[2017-11-03] MEDS ORDERED: GLYCOPYRROLATE INJ 0.2 MG/ML 2 ML VIAL As Ordered (17:26)
[2017-11-03] MEDS ORDERED: PHENYLEPHRINE INJ 10MG/ML VIAL (J2370) As Ordered (17:30)
[2017-11-03] MEDS ORDERED: NORCO, ANEXSIA 5/325MG TABLET (HYDROcodone/ACETAMINOPHEN) As Ordered (18:42)
[2017-11-03] MEDS: LR 1,000 ML IV (18:45)
[2017-11-03] MEDS ORDERED: ONDANSETRON 4MG/2ML VIAL (J2405) IV (18:45)
[2017-11-03] MEDS ORDERED: MORPHINE 10 MG/ML 1ML VIAL IV (18:45)
[2017-11-03] MEDS ORDERED: fentaNYL 100 MCG/2 ML INJECTION (J3010) IV (18:45)
[2017-11-03] MEDS: NORCO, ANEXSIA 5/325MG TABLET (HYDROcodone/ACETAMINOPHEN) PO (18:46)
[2017-11-03 20:29] LABS: BEDSIDE GLUCOSE 124 MG/DL (83-110)
[2017-11-03] MEDS ORDERED: NORCO, ANEXSIA 5/325MG TABLET (HYDROcodone/ACETAMINOPHEN) PO (20:30)
[2017-11-03] MEDS: SIMVASTATIN 10 MG TAB PO (21:43)
[2017-11-04] MEDS: PIPERACILLIN/TAZOBACTAM SOD 3.375 GM in APPROPRIATE DILUENT 1 EA IV ×3 (06:31→21:10)
[2017-11-04 06:57] LABS: HEMATOCRIT 23.5 % (42.0-52.0); HEMOGLOBIN 7.2 g/dl (14.0-18.0); MEAN CORPUSCULAR HEMOGLOBIN 25.5 pg (27.0-33.0); MEAN CORPUSCULAR HGB CONC 30.6 g/dl (32.0-36.5); MEAN CORPUSCULAR VOLUME 83.3 fl (80.0-96.0); PLATELET COUNT, AUTOMATED 184 10^3/uL (150-450); RED BLOOD COUNT 2.82 10^6/uL (4.30-6.10); RED CELL DISTRIBUTION WIDTH 19.4 % (11.5-14.5); WHITE BLOOD COUNT 8.2 10^3/uL (4.0-10.0)
[2017-11-04 07:47] LABS: ANION GAP 19 MEQ/L (8-16); BLOOD UREA NITROGEN 27 MG/DL (7-18); CALCIUM LEVEL 7.1 MG/DL (8.8-10.2); CARBON DIOXIDE LEVEL 27 MEQ/L (21-32); CHLORIDE LEVEL 95 MEQ/L (98-107); CREATININE FOR GFR 1.17 MG/DL (0.70-1.30); GLOMERULAR FILTRATION RATE > 60.0 (>42); GLUCOSE, FASTING 258 MG/DL (83-110); POTASSIUM SERUM 3.3 MEQ/L (3.5-5.1); PROTHROMBIN TIME 54.9 SECONDS (12.4-14.5); SODIUM LEVEL 141 MEQ/L (136-145)
[2017-11-04 07:50] LABS: INR 5.71
[2017-11-04] MEDS: HumaLOG INSULIN (NovoLOG) PER UNIT SC ×4 (08:30→21:00)
[2017-11-04] MEDS: LEVEMIR (INSULIN DETEMIR) 1 UNITS/0.01ML SC ×2 (08:30→21:11)
[2017-11-04] MEDS: MULTIVITAMINS/MINERALS THERAP 1 TAB PO (08:31)
[2017-11-04] MEDS: TAMSULOSIN 0.4 MG CAP PO ×2 (08:31→21:09)
[2017-11-04] MEDS: VITAMIN D 1,000 INTERNATIONAL UNITS TABLET PO (08:31)
[2017-11-04] MEDS: FERROUS SULFATE 325MG TAB PO (08:31)
[2017-11-04] MEDS: DIGOXIN 0.125 MG TAB PO (08:31)
[2017-11-04] MEDS: BUMETANIDE 1 MG TAB PO (08:32)
[2017-11-04] MEDS: SERTRALINE 100 MG TAB PO (08:32)
[2017-11-04] MEDS: METOPROLOL SUCC *XL* 25MG TAB (TopROL *XL*) PO (08:32)
[2017-11-04] MEDS: EUCERIN 120GM CREAM TOP ×2 (08:33→21:10)
[2017-11-04] MEDS: NORCO, ANEXSIA 5/325MG TABLET (HYDROcodone/ACETAMINOPHEN) PO (08:38)
[2017-11-04] MEDS: POTASSIUM CHLORIDE 10 MEQ SR TABLET PO (08:39)
[2017-11-04] MEDS ORDERED: FUROSEMIDE 100 MG/10 ML VIAL (J1940) IV (09:00)
[2017-11-04] MEDS: CALCIUM GLUCONATE 1,000 MG in D5W MINI-BAG PLUS 100 ML IV (10:06)
[2017-11-04 12:24] LABS: BEDSIDE GLUCOSE 143 MG/DL (83-110)
[2017-11-04] MEDS: FUROSEMIDE 40 MG/4 ML VIAL (J1940) IV ×3 (12:32→17:09)
[2017-11-04] MEDS: SPIRONOLACTONE 25 MG TAB PO (12:49)
[2017-11-04 16:55] LABS: HEMATOCRIT 27.4 % (42.0-52.0); HEMOGLOBIN 8.7 g/dl (14.0-18.0)
[2017-11-04 17:25] LABS: BEDSIDE GLUCOSE 111 MG/DL (83-110)
[2017-11-04 17:50] LABS: POTASSIUM SERUM 4.2 MEQ/L (3.5-5.1)
[2017-11-04 18:02] LABS: IMMEDIATE SPIN CROSSMATCH 1 2
[2017-11-04] MEDS: POTASSIUM CHL PWD 20 MEQ PACKET PO (21:09)
[2017-11-04] MEDS: SIMVASTATIN 10 MG TAB PO (21:09)
[2017-11-04 21:12] LABS: BEDSIDE GLUCOSE 128 MG/DL (83-110)
[2017-11-05 00:44] LABS: APPEARANCE, URINE CLOUDY (CLEAR); BACTERIA, URINE AUTO 1+ (NEGATIVE); BILIRUBIN, URINE AUTO NEGATIVE (NEGATIVE); BLOOD, URINE BLOOD 3+ (NEGATIVE); COLOR, URINE YELLOW (YELLOW); GLUCOSE, URINE (UA) AUTO NEGATIVE (NEGATIVE); KETONE, URINE AUTO NEGATIVE (NEGATIVE); LEUKOCYTE ESTERASE, URINE AUTO 3+ (NEGATIVE); MUCUS, URINE SMALL (NEGATIVE); NITRITE, URINE AUTO NEGATIVE (NEGATIVE); PROTEIN, URINE AUTO NEGATIVE (NEGATIVE); RBC, URINE AUTO TNTC /HPF (0-3); SPECIFIC GRAVITY URINE AUTO 1.013 (1.002-1.035); SQUAMOUS EPITHELIAL CELL UR AU 1 /HPF (0-6); WBC, URINE AUTO TNTC /HPF (0-3); YEAST LIKE CELL URINE AUTO SMALL
[2017-11-05] MEDS: PIPERACILLIN/TAZOBACTAM SOD 3.375 GM in APPROPRIATE DILUENT 1 EA IV ×2 (05:07→14:27)
[2017-11-05 06:45] LABS: HEMATOCRIT 28.7 % (42.0-52.0); MEAN CORPUSCULAR HEMOGLOBIN 25.9 pg (27.0-33.0); MEAN CORPUSCULAR HGB CONC 31.4 g/dl (32.0-36.5); MEAN CORPUSCULAR VOLUME 82.5 fl (80.0-96.0); PLATELET COUNT, AUTOMATED 220 10^3/uL (150-450); RED BLOOD COUNT 3.48 10^6/uL (4.30-6.10); RED CELL DISTRIBUTION WIDTH 18.7 % (11.5-14.5); WHITE BLOOD COUNT 9.7 10^3/uL (4.0-10.0)
[2017-11-05 06:59] LABS: ALBUMIN 1.6 GM/DL (3.2-5.2); ANION GAP 8 MEQ/L (8-16); BLOOD UREA NITROGEN 30 MG/DL (7-18); CALCIUM LEVEL 8.2 MG/DL (8.8-10.2); CARBON DIOXIDE LEVEL 29 MEQ/L (21-32); CHLORIDE LEVEL 102 MEQ/L (98-107); CREATININE FOR GFR 1.31 MG/DL (0.70-1.30); GLOMERULAR FILTRATION RATE 56.3 (>42); GLUCOSE, FASTING 104 MG/DL (83-110); MAGNESIUM LEVEL 2.3 MG/DL (1.8-2.4); PHOSPHORUS LEVEL 3.2 MG/DL (2.5-4.9); POTASSIUM SERUM 4.4 MEQ/L (3.5-5.1); SODIUM LEVEL 139 MEQ/L (136-145)
[2017-11-05] MEDS: HumaLOG INSULIN (NovoLOG) PER UNIT SC ×4 (08:47→21:00)
[2017-11-05] MEDS: LEVEMIR (INSULIN DETEMIR) 1 UNITS/0.01ML SC ×2 (08:47→21:05)
[2017-11-05] MEDS: FERROUS SULFATE 325MG TAB PO (08:49)
[2017-11-05] MEDS: TAMSULOSIN 0.4 MG CAP PO ×2 (08:49→21:05)
[2017-11-05] MEDS: POTASSIUM CHL PWD 20 MEQ PACKET PO ×2 (08:49→21:05)
[2017-11-05] MEDS: SPIRONOLACTONE 25 MG TAB PO (08:49)
[2017-11-05] MEDS: METOPROLOL SUCC *XL* 25MG TAB (TopROL *XL*) PO (08:50)
[2017-11-05] MEDS: FUROSEMIDE 40 MG/4 ML VIAL (J1940) IV ×3 (08:50→18:23)
[2017-11-05] MEDS: DIGOXIN 0.125 MG TAB PO (08:50)
[2017-11-05] MEDS: VITAMIN D 1,000 INTERNATIONAL UNITS TABLET PO (08:51)
[2017-11-05] MEDS: SERTRALINE 100 MG TAB PO (08:51)
[2017-11-05] MEDS: MULTIVITAMINS/MINERALS THERAP 1 TAB PO (08:51)
[2017-11-05] MEDS: EUCERIN 120GM CREAM TOP ×2 (08:52→21:00)
[2017-11-05 12:33] LABS: BEDSIDE GLUCOSE 174 MG/DL (83-110)
[2017-11-05 18:01] LABS: BEDSIDE GLUCOSE 132 MG/DL (83-110)
[2017-11-05] MEDS: SIMVASTATIN 10 MG TAB PO (21:05)
[2017-11-05 21:37] LABS: BEDSIDE GLUCOSE 131 MG/DL (83-110)
[2017-11-06 07:02] LABS: HEMOGLOBIN 8.4 g/dl (14.0-18.0); MEAN CORPUSCULAR HEMOGLOBIN 25.8 pg (27.0-33.0); MEAN CORPUSCULAR HGB CONC 31.1 g/dl (32.0-36.5); MEAN CORPUSCULAR VOLUME 83.1 fl (80.0-96.0); PLATELET COUNT, AUTOMATED 228 10^3/uL (150-450); RED BLOOD COUNT 3.25 10^6/uL (4.30-6.10); RED CELL DISTRIBUTION WIDTH 19.1 % (11.5-14.5); WHITE BLOOD COUNT 11.8 10^3/uL (4.0-10.0)
[2017-11-06 07:12] LABS: INR 2.52; PROTHROMBIN TIME 28.2 SECONDS (12.4-14.5)
[2017-11-06 07:15] LABS: ANION GAP 7 MEQ/L (8-16); BLOOD UREA NITROGEN 37 MG/DL (7-18); CALCIUM LEVEL 8.3 MG/DL (8.8-10.2); CARBON DIOXIDE LEVEL 30 MEQ/L (21-32); CHLORIDE LEVEL 101 MEQ/L (98-107); GLOMERULAR FILTRATION RATE 48.2 (>42); GLUCOSE, FASTING 100 MG/DL (83-110); POTASSIUM SERUM 4.6 MEQ/L (3.5-5.1); SODIUM LEVEL 138 MEQ/L (136-145)
[2017-11-06] MEDS: HumaLOG INSULIN (NovoLOG) PER UNIT SC ×4 (07:33→20:26)
[2017-11-06] MEDS: VITAMIN D 1,000 INTERNATIONAL UNITS TABLET PO (09:29)
[2017-11-06] MEDS: FUROSEMIDE 40 MG/4 ML VIAL (J1940) IV ×3 (09:29→18:05)
[2017-11-06] MEDS: FERROUS SULFATE 325MG TAB PO (09:30)
[2017-11-06] MEDS: METOPROLOL SUCC *XL* 25MG TAB (TopROL *XL*) PO (09:30)
[2017-11-06] MEDS: SERTRALINE 100 MG TAB PO (09:30)
[2017-11-06] MEDS: SPIRONOLACTONE 25 MG TAB PO (09:30)
[2017-11-06] MEDS: DIGOXIN 0.125 MG TAB PO (09:30)
[2017-11-06] MEDS: MULTIVITAMINS/MINERALS THERAP 1 TAB PO (09:30)
[2017-11-06] MEDS: TAMSULOSIN 0.4 MG CAP PO ×2 (09:30→20:24)
[2017-11-06] MEDS: POTASSIUM CHL PWD 20 MEQ PACKET PO (09:31)
[2017-11-06] MEDS: LEVEMIR (INSULIN DETEMIR) 1 UNITS/0.01ML SC ×2 (09:32→20:24)
[2017-11-06] MEDS: EUCERIN 120GM CREAM TOP ×2 (09:33→20:25)
[2017-11-06 11:57] LABS: BEDSIDE GLUCOSE 166 MG/DL (83-110)
[2017-11-06 17:42] LABS: BEDSIDE GLUCOSE 139 MG/DL (83-110)
[2017-11-06] MEDS: WARFARIN SOD 1 MG TAB PO (18:05)
[2017-11-06] MEDS: SIMVASTATIN 10 MG TAB PO (20:24)
[2017-11-06] MEDS: NYSTATIN 100,000 UNITS/GM TOPICAL PWD 15 GM TOP (20:25)
[2017-11-06 20:47] LABS: BEDSIDE GLUCOSE 119 MG/DL (83-110)
[2017-11-07 06:35] LABS: BEDSIDE GLUCOSE 74 MG/DL (83-110)
[2017-11-07 06:57] LABS: HEMOGLOBIN 8.2 g/dl (14.0-18.0); MEAN CORPUSCULAR HEMOGLOBIN 26.3 pg (27.0-33.0); MEAN CORPUSCULAR HGB CONC 31.5 g/dl (32.0-36.5); MEAN CORPUSCULAR VOLUME 83.3 fl (80.0-96.0); PLATELET COUNT, AUTOMATED 241 10^3/uL (150-450); RED BLOOD COUNT 3.12 10^6/uL (4.30-6.10); RED CELL DISTRIBUTION WIDTH 19.8 % (11.5-14.5); WHITE BLOOD COUNT 11.2 10^3/uL (4.0-10.0)
[2017-11-07 07:04] LABS: INR 2.18; PROTHROMBIN TIME 25.1 SECONDS (12.4-14.5)
[2017-11-07 07:11] LABS: ANION GAP 7 MEQ/L (8-16); BLOOD UREA NITROGEN 42 MG/DL (7-18); CALCIUM LEVEL 8.6 MG/DL (8.8-10.2); CARBON DIOXIDE LEVEL 30 MEQ/L (21-32); CHLORIDE LEVEL 102 MEQ/L (98-107); CREATININE FOR GFR 1.48 MG/DL (0.70-1.30); GLOMERULAR FILTRATION RATE 48.9 (>42); GLUCOSE, FASTING 64 MG/DL (83-110); POTASSIUM SERUM 4.4 MEQ/L (3.5-5.1); SODIUM LEVEL 139 MEQ/L (136-145)
[2017-11-07] MEDS: HumaLOG INSULIN (NovoLOG) PER UNIT SC ×4 (07:30→21:00)
[2017-11-07] MEDS: EUCERIN 120GM CREAM TOP ×2 (08:00→20:48)
[2017-11-07] MEDS: FERROUS SULFATE 325MG TAB PO (08:38)
[2017-11-07] MEDS: METOPROLOL SUCC *XL* 25MG TAB (TopROL *XL*) PO (08:39)
[2017-11-07] MEDS: MULTIVITAMINS/MINERALS THERAP 1 TAB PO (08:39)
[2017-11-07] MEDS: SERTRALINE 100 MG TAB PO (08:39)
[2017-11-07] MEDS: TAMSULOSIN 0.4 MG CAP PO ×2 (08:39→20:42)
[2017-11-07] MEDS: DIGOXIN 0.125 MG TAB PO (08:39)
[2017-11-07] MEDS: SPIRONOLACTONE 25 MG TAB PO (08:40)
[2017-11-07] MEDS: ACETAMINOPHEN TAB 650MG DOSE (2X325MG) PO (08:40)
[2017-11-07] MEDS: POTASSIUM CHL PWD 20 MEQ PACKET PO (08:40)
[2017-11-07] MEDS: VITAMIN D 1,000 INTERNATIONAL UNITS TABLET PO (08:40)
[2017-11-07] MEDS: NYSTATIN 100,000 UNITS/GM TOPICAL PWD 15 GM TOP ×2 (08:41→20:47)
[2017-11-07 11:59] LABS: BEDSIDE GLUCOSE 147 MG/DL (83-110)
[2017-11-07] MEDS: FUROSEMIDE 40 MG/4 ML VIAL (J1940) IV ×2 (15:00→20:43)
[2017-11-07 16:45] LABS: IMMEDIATE SPIN CROSSMATCH 1 1
[2017-11-07 17:51] LABS: BEDSIDE GLUCOSE 179 MG/DL (83-110)
[2017-11-07] MEDS: WARFARIN SOD 1 MG TAB PO (18:00)
[2017-11-07] MEDS: LEVEMIR (INSULIN DETEMIR) 1 UNITS/0.01ML SC ×2 (20:07→21:54)
[2017-11-07] MEDS: SIMVASTATIN 10 MG TAB PO (20:42)
[2017-11-07 21:22] LABS: BEDSIDE GLUCOSE 182 MG/DL (83-110)
[2017-11-08 06:53] LABS: ANION GAP 6 MEQ/L (8-16); BLOOD UREA NITROGEN 44 MG/DL (7-18); CALCIUM LEVEL 7.8 MG/DL (8.8-10.2); CARBON DIOXIDE LEVEL 30 MEQ/L (21-32); CHLORIDE LEVEL 104 MEQ/L (98-107); CREATININE FOR GFR 1.52 MG/DL (0.70-1.30); GLOMERULAR FILTRATION RATE 47.5 (>42); GLUCOSE, FASTING 134 MG/DL (83-110); INR 1.99; POTASSIUM SERUM 4.5 MEQ/L (3.5-5.1); PROTHROMBIN TIME 23.3 SECONDS (12.4-14.5); SODIUM LEVEL 140 MEQ/L (136-145)
[2017-11-08] MEDS: MULTIVITAMINS/MINERALS THERAP 1 TAB PO (08:13)
[2017-11-08] MEDS: METOPROLOL SUCC *XL* 25MG TAB (TopROL *XL*) PO (08:13)
[2017-11-08] MEDS: FERROUS SULFATE 325MG TAB PO (08:13)
[2017-11-08] MEDS: DIGOXIN 0.125 MG TAB PO (08:13)
[2017-11-08] MEDS: POTASSIUM CHL PWD 20 MEQ PACKET PO (08:15)
[2017-11-08] MEDS: HumaLOG INSULIN (NovoLOG) PER UNIT SC ×4 (08:16→21:00)
[2017-11-08] MEDS: SPIRONOLACTONE 25 MG TAB PO (08:20)
[2017-11-08] MEDS: TAMSULOSIN 0.4 MG CAP PO ×2 (08:20→22:01)
[2017-11-08] MEDS: VITAMIN D 1,000 INTERNATIONAL UNITS TABLET PO (08:20)
[2017-11-08] MEDS: SERTRALINE 100 MG TAB PO (08:20)
[2017-11-08] MEDS: EUCERIN 120GM CREAM TOP ×2 (08:21→22:02)
[2017-11-08] MEDS: LEVEMIR (INSULIN DETEMIR) 1 UNITS/0.01ML SC ×2 (08:21→22:02)
[2017-11-08] MEDS: NYSTATIN 100,000 UNITS/GM TOPICAL PWD 15 GM TOP ×2 (08:22→20:00)
[2017-11-08 11:53] LABS: BEDSIDE GLUCOSE 129 MG/DL (83-110)
[2017-11-08] MEDS: FUROSEMIDE 40 MG/4 ML VIAL (J1940) IV ×2 (13:22→18:19)
[2017-11-08 16:51] LABS: HEMATOCRIT 28.3 % (42.0-52.0); HEMOGLOBIN 8.6 g/dl (14.0-18.0); MEAN CORPUSCULAR HEMOGLOBIN 26.4 pg (27.0-33.0); MEAN CORPUSCULAR HGB CONC 30.4 g/dl (32.0-36.5); MEAN CORPUSCULAR VOLUME 86.8 fl (80.0-96.0); PLATELET COUNT, AUTOMATED 251 10^3/uL (150-450); RED BLOOD COUNT 3.26 10^6/uL (4.30-6.10); RED CELL DISTRIBUTION WIDTH 19.8 % (11.5-14.5); WHITE BLOOD COUNT 9.6 10^3/uL (4.0-10.0)
[2017-11-08] MEDS: WARFARIN SOD 1 MG TAB PO (18:23)
[2017-11-08 19:42] LABS: BEDSIDE GLUCOSE 233 MG/DL (83-110)
[2017-11-08] MEDS: SIMVASTATIN 10 MG TAB PO (22:01)
[2017-11-08 22:29] LABS: BEDSIDE GLUCOSE 228 MG/DL (83-110)
[2017-11-09] MEDS: ACETAMINOPHEN TAB 650MG DOSE (2X325MG) PO ×3 (03:27→13:01)
[2017-11-09 07:15] LABS: INR 1.87; PROTHROMBIN TIME 22.1 SECONDS (12.4-14.5)
[2017-11-09 07:25] LABS: ANION GAP 5 MEQ/L (8-16); BLOOD UREA NITROGEN 41 MG/DL (7-18); CALCIUM LEVEL 8.4 MG/DL (8.8-10.2); CARBON DIOXIDE LEVEL 31 MEQ/L (21-32); CHLORIDE LEVEL 102 MEQ/L (98-107); GLOMERULAR FILTRATION RATE 52.2 (>42); GLUCOSE, FASTING 157 MG/DL (83-110); POTASSIUM SERUM 4.3 MEQ/L (3.5-5.1); SODIUM LEVEL 138 MEQ/L (136-145)
[2017-11-09] MEDS: FUROSEMIDE 40 MG/4 ML VIAL (J1940) IV ×2 (08:20→17:26)
[2017-11-09] MEDS: VITAMIN D 1,000 INTERNATIONAL UNITS TABLET PO (08:21)
[2017-11-09] MEDS: MULTIVITAMINS/MINERALS THERAP 1 TAB PO (08:22)
[2017-11-09] MEDS: TAMSULOSIN 0.4 MG CAP PO ×2 (08:22→22:03)
[2017-11-09] MEDS: FERROUS SULFATE 325MG TAB PO (08:22)
[2017-11-09] MEDS: METOPROLOL SUCC *XL* 25MG TAB (TopROL *XL*) PO (08:22)
[2017-11-09] MEDS: DIGOXIN 0.125 MG TAB PO (08:23)
[2017-11-09] MEDS: LEVEMIR (INSULIN DETEMIR) 1 UNITS/0.01ML SC ×2 (08:24→22:03)
[2017-11-09] MEDS: SERTRALINE 100 MG TAB PO (08:24)
[2017-11-09] MEDS: HumaLOG INSULIN (NovoLOG) PER UNIT SC ×4 (08:24→22:04)
[2017-11-09] MEDS: NYSTATIN 100,000 UNITS/GM TOPICAL PWD 15 GM TOP ×2 (08:25→22:04)
[2017-11-09] MEDS: EUCERIN 120GM CREAM TOP ×2 (08:25→22:04)
[2017-11-09 12:55] LABS: BEDSIDE GLUCOSE 177 MG/DL (83-110)
[2017-11-09 17:10] LABS: BEDSIDE GLUCOSE 220 MG/DL (83-110)
[2017-11-09] MEDS: WARFARIN SOD 1 MG TAB PO (17:26)
[2017-11-09 21:12] LABS: BEDSIDE GLUCOSE 152 MG/DL (83-110)
[2017-11-09] MEDS: SIMVASTATIN 10 MG TAB PO (22:03)
[2017-11-10 07:05] LABS: HEMATOCRIT 27.1 % (42.0-52.0); HEMOGLOBIN 8.5 g/dl (14.0-18.0); MEAN CORPUSCULAR HEMOGLOBIN 27.1 pg (27.0-33.0); MEAN CORPUSCULAR HGB CONC 31.4 g/dl (32.0-36.5); MEAN CORPUSCULAR VOLUME 86.3 fl (80.0-96.0); PLATELET COUNT, AUTOMATED 214 10^3/uL (150-450); RED BLOOD COUNT 3.14 10^6/uL (4.30-6.10); RED CELL DISTRIBUTION WIDTH 20.3 % (11.5-14.5); WHITE BLOOD COUNT 8.1 10^3/uL (4.0-10.0)
[2017-11-10 07:16] LABS: INR 1.71; PROTHROMBIN TIME 20.6 SECONDS (12.4-14.5)
[2017-11-10 07:25] LABS: ANION GAP 5 MEQ/L (8-16); BLOOD UREA NITROGEN 41 MG/DL (7-18); CALCIUM LEVEL 8.5 MG/DL (8.8-10.2); CARBON DIOXIDE LEVEL 33 MEQ/L (21-32); CHLORIDE LEVEL 102 MEQ/L (98-107); CREATININE FOR GFR 1.25 MG/DL (0.70-1.30); GLOMERULAR FILTRATION RATE 59.5 (>42); GLUCOSE, FASTING 96 MG/DL (83-110); POTASSIUM SERUM 4.2 MEQ/L (3.5-5.1); SODIUM LEVEL 140 MEQ/L (136-145)
[2017-11-10] MEDS: HumaLOG INSULIN (NovoLOG) PER UNIT SC ×4 (07:30→21:00)
[2017-11-10] MEDS: DIGOXIN 0.125 MG TAB PO (08:50)
[2017-11-10] MEDS: VITAMIN D 1,000 INTERNATIONAL UNITS TABLET PO (08:50)
[2017-11-10] MEDS: FERROUS SULFATE 325MG TAB PO (08:50)
[2017-11-10] MEDS: METOPROLOL SUCC *XL* 25MG TAB (TopROL *XL*) PO (08:51)
[2017-11-10] MEDS: SERTRALINE 100 MG TAB PO (08:51)
[2017-11-10] MEDS: TAMSULOSIN 0.4 MG CAP PO ×2 (08:51→21:20)
[2017-11-10] MEDS: EUCERIN 120GM CREAM TOP ×2 (08:52→21:23)
[2017-11-10] MEDS: MULTIVITAMINS/MINERALS THERAP 1 TAB PO (08:52)
[2017-11-10] MEDS: NYSTATIN 100,000 UNITS/GM TOPICAL PWD 15 GM TOP ×2 (08:53→21:23)
[2017-11-10] MEDS: LEVEMIR (INSULIN DETEMIR) 1 UNITS/0.01ML SC ×2 (09:00→21:20)
[2017-11-10 11:51] LABS: BEDSIDE GLUCOSE 125 MG/DL (83-110)
[2017-11-10] MEDS: NS 250 ML IV (14:30)
[2017-11-10] MEDS ORDERED: PROTAMINE SULF INJ 50 MG/5 ML VIAL (J2720) As Ordered (14:47)
[2017-11-10] MEDS ORDERED: HEPARIN 1,000 UNITS/ML 10ML VIAL (FOR RADIOLOGY& DIALYSIS ONLY) As Ordered (14:47)
[2017-11-10] MEDS ORDERED: ISOVUE-300 61% 50ML VIAL (Q9967) As Ordered (14:48)
[2017-11-10] MEDS ORDERED: fentaNYL 100 MCG/2 ML INJECTION (J3010) As Ordered (15:03)
[2017-11-10] MEDS ORDERED: MIDAZOLAM INJ 2 MG/2 ML VIAL (J2250) As Ordered (15:04)
[2017-11-10 17:02] LABS: BEDSIDE GLUCOSE 138 MG/DL (83-110)
[2017-11-10] MEDS: WARFARIN SOD 1 MG TAB PO (17:40)
[2017-11-10] MEDS: SIMVASTATIN 10 MG TAB PO (21:20)
[2017-11-10] MEDS: LevoFLOXacin 500 MG TABLET PO (21:36)
[2017-11-11 07:37] LABS: HEMATOCRIT 28.5 % (42.0-52.0); HEMOGLOBIN 8.8 g/dl (14.0-18.0); MEAN CORPUSCULAR HGB CONC 30.9 g/dl (32.0-36.5); MEAN CORPUSCULAR VOLUME 87.4 fl (80.0-96.0); PLATELET COUNT, AUTOMATED 221 10^3/uL (150-450); RED BLOOD COUNT 3.26 10^6/uL (4.30-6.10); RED CELL DISTRIBUTION WIDTH 20.6 % (11.5-14.5); WHITE BLOOD COUNT 7.5 10^3/uL (4.0-10.0)
[2017-11-11 07:48] LABS: INR 1.64; PROTHROMBIN TIME 19.8 SECONDS (12.4-14.5)
[2017-11-11 07:59] LABS: ANION GAP 6 MEQ/L (8-16); BLOOD UREA NITROGEN 37 MG/DL (7-18); CALCIUM LEVEL 8.5 MG/DL (8.8-10.2); CARBON DIOXIDE LEVEL 31 MEQ/L (21-32); CHLORIDE LEVEL 104 MEQ/L (98-107); CREATININE FOR GFR 1.21 MG/DL (0.70-1.30); GLOMERULAR FILTRATION RATE > 60.0 (>42); GLUCOSE, FASTING 150 MG/DL (83-110); POTASSIUM SERUM 4.2 MEQ/L (3.5-5.1); SODIUM LEVEL 141 MEQ/L (136-145)
[2017-11-11] MEDS: TAMSULOSIN 0.4 MG CAP PO ×2 (08:17→22:20)
[2017-11-11] MEDS: LEVEMIR (INSULIN DETEMIR) 1 UNITS/0.01ML SC ×2 (08:17→22:21)
[2017-11-11] MEDS: MULTIVITAMINS/MINERALS THERAP 1 TAB PO (08:17)
[2017-11-11] MEDS: VITAMIN D 1,000 INTERNATIONAL UNITS TABLET PO (08:17)
[2017-11-11] MEDS: HumaLOG INSULIN (NovoLOG) PER UNIT SC ×4 (08:17→22:21)
[2017-11-11] MEDS: DIGOXIN 0.125 MG TAB PO (08:18)
[2017-11-11] MEDS: METOPROLOL SUCC *XL* 25MG TAB (TopROL *XL*) PO (08:18)
[2017-11-11] MEDS: ACETAMINOPHEN TAB 650MG DOSE (2X325MG) PO ×3 (08:18→22:21)
[2017-11-11] MEDS: FERROUS SULFATE 325MG TAB PO (08:18)
[2017-11-11] MEDS: SERTRALINE 100 MG TAB PO (08:18)
[2017-11-11] MEDS: NYSTATIN 100,000 UNITS/GM TOPICAL PWD 15 GM TOP ×2 (08:19→22:20)
[2017-11-11] MEDS: EUCERIN 120GM CREAM TOP ×2 (08:19→22:20)
[2017-11-11 12:32] LABS: BEDSIDE GLUCOSE 206 MG/DL (83-110)
[2017-11-11 18:08] LABS: BEDSIDE GLUCOSE 220 MG/DL (83-110)
[2017-11-11] MEDS: LevoFLOXacin 500 MG TABLET PO (18:13)
[2017-11-11] MEDS: WARFARIN SOD 1 MG TAB PO (18:13)
[2017-11-11] MEDS: FUROSEMIDE 40 MG/4 ML VIAL (J1940) IV (18:14)
[2017-11-11 20:24] LABS: BEDSIDE GLUCOSE 240 MG/DL (83-110)
[2017-11-11] MEDS: SIMVASTATIN 10 MG TAB PO (22:20)
[2017-11-12 02:52] LABS: BEDSIDE GLUCOSE 204 MG/DL (83-110)
[2017-11-12 07:23] LABS: INR 1.77; PROTHROMBIN TIME 21.2 SECONDS (12.4-14.5)
[2017-11-12 07:32] LABS: ANION GAP 5 MEQ/L (8-16); BLOOD UREA NITROGEN 36 MG/DL (7-18); CALCIUM LEVEL 8.4 MG/DL (8.8-10.2); CARBON DIOXIDE LEVEL 31 MEQ/L (21-32); CHLORIDE LEVEL 106 MEQ/L (98-107); CREATININE FOR GFR 1.22 MG/DL (0.70-1.30); GLOMERULAR FILTRATION RATE > 60.0 (>42); GLUCOSE, FASTING 118 MG/DL (83-110); POTASSIUM SERUM 4.1 MEQ/L (3.5-5.1); SODIUM LEVEL 142 MEQ/L (136-145)
[2017-11-12] MEDS: TAMSULOSIN 0.4 MG CAP PO ×2 (08:28→22:24)
[2017-11-12] MEDS: MULTIVITAMINS/MINERALS THERAP 1 TAB PO (08:28)
[2017-11-12] MEDS: VITAMIN D 1,000 INTERNATIONAL UNITS TABLET PO (08:29)
[2017-11-12] MEDS: SERTRALINE 100 MG TAB PO (08:29)
[2017-11-12] MEDS: METOPROLOL SUCC *XL* 25MG TAB (TopROL *XL*) PO (08:29)
[2017-11-12] MEDS: FERROUS SULFATE 325MG TAB PO (08:29)
[2017-11-12] MEDS: DIGOXIN 0.125 MG TAB PO (08:29)
[2017-11-12] MEDS: ACETAMINOPHEN TAB 650MG DOSE (2X325MG) PO ×3 (08:31→22:24)
[2017-11-12] MEDS: FUROSEMIDE 40 MG/4 ML VIAL (J1940) IV (08:31)
[2017-11-12] MEDS: EUCERIN 120GM CREAM TOP ×2 (08:32→21:00)
[2017-11-12] MEDS: LEVEMIR (INSULIN DETEMIR) 1 UNITS/0.01ML SC ×2 (08:32→22:24)
[2017-11-12] MEDS: HumaLOG INSULIN (NovoLOG) PER UNIT SC ×4 (08:32→21:00)
[2017-11-12] MEDS: NYSTATIN 100,000 UNITS/GM TOPICAL PWD 15 GM TOP ×2 (08:33→21:00)
[2017-11-12] MEDS: LevoFLOXacin 500 MG TABLET PO (18:17)
[2017-11-12] MEDS: WARFARIN SOD 1 MG TAB PO (18:17)
[2017-11-12] MEDS: SIMVASTATIN 10 MG TAB PO (22:24)
[2017-11-13 02:10] LABS: BEDSIDE GLUCOSE 179 MG/DL (83-110)
[2017-11-13 02:10] LABS: BEDSIDE GLUCOSE 143 MG/DL (83-110)
[2017-11-13 02:10] LABS: BEDSIDE GLUCOSE 169 MG/DL (83-110)
[2017-11-13 07:16] LABS: INR 1.65
[2017-11-13 07:20] LABS: ANION GAP 5 MEQ/L (8-16); BLOOD UREA NITROGEN 34 MG/DL (7-18); CALCIUM LEVEL 8.7 MG/DL (8.8-10.2); CARBON DIOXIDE LEVEL 32 MEQ/L (21-32); CHLORIDE LEVEL 105 MEQ/L (98-107); CREATININE FOR GFR 1.22 MG/DL (0.70-1.30); GLOMERULAR FILTRATION RATE > 60.0 (>42); GLUCOSE, FASTING 101 MG/DL (83-110); POTASSIUM SERUM 4.1 MEQ/L (3.5-5.1); SODIUM LEVEL 142 MEQ/L (136-145)
[2017-11-13] MEDS: HumaLOG INSULIN (NovoLOG) PER UNIT SC ×4 (07:30→21:00)
[2017-11-13] MEDS ORDERED: LIDOCAINE 2% MDV 20 ML VIAL As Ordered (08:16)
[2017-11-13] MEDS ORDERED: ISOVUE-300 61% 50ML VIAL (Q9967) As Ordered (08:17)
[2017-11-13] MEDS: LEVEMIR (INSULIN DETEMIR) 1 UNITS/0.01ML SC ×2 (09:00→21:36)
[2017-11-13] MEDS ORDERED: HEPARIN 1,000 UNITS/ML 10ML VIAL (FOR RADIOLOGY& DIALYSIS ONLY) As Ordered (09:01)
[2017-11-13] MEDS ORDERED: fentaNYL 100 MCG/2 ML INJECTION (J3010) As Ordered (09:10)
[2017-11-13] MEDS ORDERED: MIDAZOLAM INJ 2 MG/2 ML VIAL (J2250) As Ordered (09:11)
[2017-11-13] MEDS: NYSTATIN 100,000 UNITS/GM TOPICAL PWD 15 GM TOP ×2 (12:40→21:36)
[2017-11-13] MEDS: VITAMIN D 1,000 INTERNATIONAL UNITS TABLET PO (12:40)
[2017-11-13] MEDS: FERROUS SULFATE 325MG TAB PO (12:41)
[2017-11-13] MEDS: SERTRALINE 100 MG TAB PO (12:41)
[2017-11-13] MEDS: METOPROLOL SUCC *XL* 25MG TAB (TopROL *XL*) PO (12:41)
[2017-11-13] MEDS: TAMSULOSIN 0.4 MG CAP PO ×2 (12:41→21:35)
[2017-11-13] MEDS: MULTIVITAMINS/MINERALS THERAP 1 TAB PO (12:41)
[2017-11-13 12:42] LABS: BEDSIDE GLUCOSE 120 MG/DL (83-110)
[2017-11-13] MEDS: DIGOXIN 0.125 MG TAB PO (12:42)
[2017-11-13] MEDS: ACETAMINOPHEN TAB 650MG DOSE (2X325MG) PO ×2 (12:42→18:16)
[2017-11-13] MEDS: EUCERIN 120GM CREAM TOP ×2 (12:42→21:00)
[2017-11-13] MEDS: WARFARIN SOD 1 MG TAB PO (18:17)
[2017-11-13] MEDS: LevoFLOXacin 500 MG TABLET PO (18:17)
[2017-11-13 18:18] LABS: BEDSIDE GLUCOSE 158 MG/DL (83-110)
[2017-11-13] MEDS: SIMVASTATIN 10 MG TAB PO (21:35)
[2017-11-14 02:41] LABS: BEDSIDE GLUCOSE 166 MG/DL (83-110)
[2017-11-14 07:14] LABS: HEMOGLOBIN 8.4 g/dl (14.0-18.0); MEAN CORPUSCULAR HEMOGLOBIN 27.2 pg (27.0-33.0); MEAN CORPUSCULAR HGB CONC 31.1 g/dl (32.0-36.5); MEAN CORPUSCULAR VOLUME 87.4 fl (80.0-96.0); PLATELET COUNT, AUTOMATED 172 10^3/uL (150-450); RED BLOOD COUNT 3.09 10^6/uL (4.30-6.10); RED CELL DISTRIBUTION WIDTH 21.3 % (11.5-14.5); WHITE BLOOD COUNT 7.6 10^3/uL (4.0-10.0)
[2017-11-14 07:31] LABS: ANION GAP 6 MEQ/L (8-16); BLOOD UREA NITROGEN 34 MG/DL (7-18); CALCIUM LEVEL 8.3 MG/DL (8.8-10.2); CARBON DIOXIDE LEVEL 30 MEQ/L (21-32); CHLORIDE LEVEL 106 MEQ/L (98-107); CREATININE FOR GFR 1.21 MG/DL (0.70-1.30); GLOMERULAR FILTRATION RATE > 60.0 (>42); GLUCOSE, FASTING 96 MG/DL (83-110); POTASSIUM SERUM 4.1 MEQ/L (3.5-5.1); SODIUM LEVEL 142 MEQ/L (136-145)
[2017-11-14] MEDS: HumaLOG INSULIN (NovoLOG) PER UNIT SC ×4 (07:42→20:59)
[2017-11-14] MEDS: LEVEMIR (INSULIN DETEMIR) 1 UNITS/0.01ML SC ×2 (09:19→21:25)
[2017-11-14] MEDS: TAMSULOSIN 0.4 MG CAP PO ×2 (09:19→21:25)
[2017-11-14] MEDS: FERROUS SULFATE 325MG TAB PO (09:19)
[2017-11-14] MEDS: MULTIVITAMINS/MINERALS THERAP 1 TAB PO (09:19)
[2017-11-14] MEDS: VITAMIN D 1,000 INTERNATIONAL UNITS TABLET PO (09:19)
[2017-11-14] MEDS: SERTRALINE 100 MG TAB PO (09:19)
[2017-11-14] MEDS: DIGOXIN 0.125 MG TAB PO (09:20)
[2017-11-14] MEDS: EUCERIN 120GM CREAM TOP ×2 (09:21→21:00)
[2017-11-14] MEDS: NYSTATIN 100,000 UNITS/GM TOPICAL PWD 15 GM TOP ×2 (09:21→21:25)
[2017-11-14] MEDS: FUROSEMIDE 40 MG/4 ML VIAL (J1940) IV ×2 (11:05→17:15)
[2017-11-14] MEDS: METOPROLOL SUCC *XL* 25MG TAB (TopROL *XL*) PO (12:55)
[2017-11-14] MEDS: SANTYL OINT 30GM TOP (14:05)
[2017-11-14] MEDS: SODIUM CHLORIDE NASAL 0.65% SPRAY BTL (OCEAN) ×2 (14:05→21:25)
[2017-11-14] MEDS: POLYVINYL ALCOHOL OPHTH SOLN 15 ML(LIQUITEARS) OU (17:14)
[2017-11-14] MEDS: WARFARIN SOD 1 MG TAB PO (17:15)
[2017-11-14] MEDS: LevoFLOXacin 500 MG TABLET PO (17:15)
[2017-11-14] MEDS: ACETAMINOPHEN TAB 650MG DOSE (2X325MG) PO ×2 (17:15→21:25)
[2017-11-14] MEDS: SIMVASTATIN 10 MG TAB PO (21:25)
[2017-11-15] MEDS: FUROSEMIDE 40 MG/4 ML VIAL (J1940) IV ×2 (02:00→09:23)
[2017-11-15 02:13] LABS: BEDSIDE GLUCOSE 178 MG/DL (83-110)
[2017-11-15 02:13] LABS: BEDSIDE GLUCOSE 151 MG/DL (83-110)
[2017-11-15 02:13] LABS: BEDSIDE GLUCOSE 218 MG/DL (83-110)
[2017-11-15 06:50] LABS: HEMATOCRIT 26.1 % (42.0-52.0); MEAN CORPUSCULAR HEMOGLOBIN 26.8 pg (27.0-33.0); MEAN CORPUSCULAR HGB CONC 30.7 g/dl (32.0-36.5); MEAN CORPUSCULAR VOLUME 87.6 fl (80.0-96.0); PLATELET COUNT, AUTOMATED 160 10^3/uL (150-450); RED BLOOD COUNT 2.98 10^6/uL (4.30-6.10); RED CELL DISTRIBUTION WIDTH 21.3 % (11.5-14.5); WHITE BLOOD COUNT 8.2 10^3/uL (4.0-10.0)
[2017-11-15 07:08] LABS: ANION GAP 6 MEQ/L (8-16); BLOOD UREA NITROGEN 35 MG/DL (7-18); CALCIUM LEVEL 8.5 MG/DL (8.8-10.2); CARBON DIOXIDE LEVEL 32 MEQ/L (21-32); CHLORIDE LEVEL 105 MEQ/L (98-107); CREATININE FOR GFR 1.34 MG/DL (0.70-1.30); GLOMERULAR FILTRATION RATE 54.9 (>42); GLUCOSE, FASTING 78 MG/DL (83-110); POTASSIUM SERUM 3.6 MEQ/L (3.5-5.1); SODIUM LEVEL 143 MEQ/L (136-145)
[2017-11-15] MEDS: HumaLOG INSULIN (NovoLOG) PER UNIT SC ×4 (07:30→21:48)
[2017-11-15] MEDS: LEVEMIR (INSULIN DETEMIR) 1 UNITS/0.01ML SC ×2 (09:00→21:48)
[2017-11-15] MEDS: METOPROLOL SUCC *XL* 25MG TAB (TopROL *XL*) PO (09:00)
[2017-11-15] MEDS: SANTYL OINT 30GM TOP (09:00)
[2017-11-15] MEDS: TAMSULOSIN 0.4 MG CAP PO (09:22)
[2017-11-15] MEDS: MULTIVITAMINS/MINERALS THERAP 1 TAB PO (09:22)
[2017-11-15] MEDS: FERROUS SULFATE 325MG TAB PO (09:22)
[2017-11-15] MEDS: SERTRALINE 100 MG TAB PO (09:23)
[2017-11-15] MEDS: DIGOXIN 0.125 MG TAB PO (09:23)
[2017-11-15] MEDS: SODIUM CHLORIDE NASAL 0.65% SPRAY BTL (OCEAN) ×2 (09:24→21:49)
[2017-11-15] MEDS: NYSTATIN 100,000 UNITS/GM TOPICAL PWD 15 GM TOP ×2 (09:24→21:50)
[2017-11-15] MEDS: EUCERIN 120GM CREAM TOP ×2 (09:24→21:50)
[2017-11-15] MEDS: VITAMIN D 1,000 INTERNATIONAL UNITS TABLET PO (12:20)
[2017-11-15] MEDS: POTASSIUM CHLORIDE 10 MEQ SR TABLET PO ×3 (12:21→21:45)
[2017-11-15] MEDS: WARFARIN SOD 1 MG TAB PO (16:33)
[2017-11-15] MEDS: FUROSEMIDE 100 MG/10 ML VIAL (J1940) IV ×2 (16:34→21:49)
[2017-11-15] MEDS: LevoFLOXacin 500 MG TABLET PO (17:15)
[2017-11-15] MEDS: ACETAMINOPHEN TAB 650MG DOSE (2X325MG) PO (20:42)
[2017-11-15 21:30] LABS: BEDSIDE GLUCOSE 268 MG/DL (83-110)
[2017-11-15 21:30] LABS: BEDSIDE GLUCOSE 207 MG/DL (83-110)
[2017-11-15 21:31] LABS: BEDSIDE GLUCOSE 282 MG/DL (83-110)
[2017-11-15] MEDS: SIMVASTATIN 10 MG TAB PO (21:45)
[2017-11-16] MEDS: FUROSEMIDE 100 MG/10 ML VIAL (J1940) IV ×4 (03:52→19:37)
[2017-11-16 06:33] LABS: HEMATOCRIT 27.1 % (42.0-52.0); HEMOGLOBIN 8.3 g/dl (14.0-18.0); MEAN CORPUSCULAR HEMOGLOBIN 26.6 pg (27.0-33.0); MEAN CORPUSCULAR HGB CONC 30.6 g/dl (32.0-36.5); MEAN CORPUSCULAR VOLUME 86.9 fl (80.0-96.0); PLATELET COUNT, AUTOMATED 168 10^3/uL (150-450); RED BLOOD COUNT 3.12 10^6/uL (4.30-6.10); WHITE BLOOD COUNT 8.8 10^3/uL (4.0-10.0)
[2017-11-16 06:52] LABS: ANION GAP 7 MEQ/L (8-16); BLOOD UREA NITROGEN 34 MG/DL (7-18); CALCIUM LEVEL 8.7 MG/DL (8.8-10.2); CARBON DIOXIDE LEVEL 32 MEQ/L (21-32); CHLORIDE LEVEL 103 MEQ/L (98-107); CREATININE FOR GFR 1.33 MG/DL (0.70-1.30); GLOMERULAR FILTRATION RATE 55.4 (>42); GLUCOSE, FASTING 167 MG/DL (83-110); POTASSIUM SERUM 3.7 MEQ/L (3.5-5.1); SODIUM LEVEL 142 MEQ/L (136-145)
[2017-11-16] MEDS: HumaLOG INSULIN (NovoLOG) PER UNIT SC ×4 (08:43→21:00)
[2017-11-16] MEDS: ACETAMINOPHEN TAB 650MG DOSE (2X325MG) PO ×2 (08:44→19:37)
[2017-11-16] MEDS: FERROUS SULFATE 325MG TAB PO (08:44)
[2017-11-16] MEDS: LEVEMIR (INSULIN DETEMIR) 1 UNITS/0.01ML SC ×2 (08:44→19:38)
[2017-11-16] MEDS: MULTIVITAMINS/MINERALS THERAP 1 TAB PO (08:45)
[2017-11-16] MEDS: DIGOXIN 0.125 MG TAB PO (08:45)
[2017-11-16] MEDS: SERTRALINE 100 MG TAB PO (08:45)
[2017-11-16] MEDS: METOPROLOL SUCC *XL* 25MG TAB (TopROL *XL*) PO (08:45)
[2017-11-16] MEDS: VITAMIN D 1,000 INTERNATIONAL UNITS TABLET PO (08:45)
[2017-11-16] MEDS: NYSTATIN 100,000 UNITS/GM TOPICAL PWD 15 GM TOP ×2 (08:46→19:41)
[2017-11-16] MEDS: SODIUM CHLORIDE NASAL 0.65% SPRAY BTL (OCEAN) ×2 (08:46→19:38)
[2017-11-16] MEDS: POTASSIUM CHLORIDE 10 MEQ SR TABLET PO ×3 (08:46→19:37)
[2017-11-16] MEDS: SANTYL OINT 30GM TOP (08:47)
[2017-11-16] MEDS: EUCERIN 120GM CREAM TOP ×2 (08:47→19:41)
[2017-11-16] MEDS: WARFARIN SOD 1 MG TAB PO (17:39)
[2017-11-16] MEDS: LevoFLOXacin 500 MG TABLET PO (17:39)
[2017-11-16 19:14] LABS: BEDSIDE GLUCOSE 204 MG/DL (83-110)
[2017-11-16] MEDS: SIMVASTATIN 10 MG TAB PO (19:37)
[2017-11-16] MEDS: POLYVINYL ALCOHOL OPHTH SOLN 15 ML(LIQUITEARS) OU (19:39)
[2017-11-16 23:32] LABS: BEDSIDE GLUCOSE 229 MG/DL (83-110)
[2017-11-16 23:32] LABS: BEDSIDE GLUCOSE 199 MG/DL (83-110)
[2017-11-17] MEDS: ACETAMINOPHEN TAB 650MG DOSE (2X325MG) PO ×2 (00:58→20:40)
[2017-11-17] MEDS: FUROSEMIDE 100 MG/10 ML VIAL (J1940) IV ×3 (04:20→17:25)
[2017-11-17 07:12] LABS: HEMATOCRIT 26.7 % (42.0-52.0); HEMOGLOBIN 8.2 g/dl (14.0-18.0); MEAN CORPUSCULAR HEMOGLOBIN 27.2 pg (27.0-33.0); MEAN CORPUSCULAR HGB CONC 30.7 g/dl (32.0-36.5); MEAN CORPUSCULAR VOLUME 88.4 fl (80.0-96.0); PLATELET COUNT, AUTOMATED 165 10^3/uL (150-450); RED BLOOD COUNT 3.02 10^6/uL (4.30-6.10); RED CELL DISTRIBUTION WIDTH 22.1 % (11.5-14.5); WHITE BLOOD COUNT 6.9 10^3/uL (4.0-10.0)
[2017-11-17 07:37] LABS: ALBUMIN 1.8 GM/DL (3.2-5.2); ALKALINE PHOSPHATASE 90 U/L (45-117); ALT/SGPT 14 U/L (12-78); ANION GAP 6 MEQ/L (8-16); AST/SGOT 19 U/L (7-37); BILIRUBIN,DIRECT 0.5 MG/DL (0.0-0.2); BILIRUBIN,TOTAL 0.9 MG/DL (0.2-1.0); BLOOD UREA NITROGEN 37 MG/DL (7-18); CALCIUM LEVEL 8.6 MG/DL (8.8-10.2); CARBON DIOXIDE LEVEL 33 MEQ/L (21-32); CHLORIDE LEVEL 104 MEQ/L (98-107); CREATININE FOR GFR 1.37 MG/DL (0.70-1.30); GLOMERULAR FILTRATION RATE 53.5 (>42); GLUCOSE, FASTING 121 MG/DL (83-110); MAGNESIUM LEVEL 2.2 MG/DL (1.8-2.4); POTASSIUM SERUM 3.7 MEQ/L (3.5-5.1); SODIUM LEVEL 143 MEQ/L (136-145); TOTAL PROTEIN 6.3 GM/DL (6.4-8.2)
[2017-11-17] MEDS: HumaLOG INSULIN (NovoLOG) PER UNIT SC ×4 (08:19→21:00)
[2017-11-17] MEDS: LEVEMIR (INSULIN DETEMIR) 1 UNITS/0.01ML SC ×2 (08:20→20:40)
[2017-11-17] MEDS: VITAMIN D 1,000 INTERNATIONAL UNITS TABLET PO (08:21)
[2017-11-17] MEDS: POTASSIUM CHLORIDE 10 MEQ SR TABLET PO ×3 (08:22→20:41)
[2017-11-17] MEDS: DIGOXIN 0.125 MG TAB PO (08:22)
[2017-11-17] MEDS: METOPROLOL SUCC *XL* 25MG TAB (TopROL *XL*) PO (08:22)
[2017-11-17] MEDS: FERROUS SULFATE 325MG TAB PO (08:22)
[2017-11-17] MEDS: MULTIVITAMINS/MINERALS THERAP 1 TAB PO (08:22)
[2017-11-17] MEDS: SODIUM CHLORIDE NASAL 0.65% SPRAY BTL (OCEAN) ×2 (08:23→21:00)
[2017-11-17] MEDS: SERTRALINE 100 MG TAB PO (08:23)
[2017-11-17] MEDS: NYSTATIN 100,000 UNITS/GM TOPICAL PWD 15 GM TOP ×2 (08:24→20:41)
[2017-11-17] MEDS: EUCERIN 120GM CREAM TOP ×2 (08:24→21:00)
[2017-11-17] MEDS: SANTYL OINT 30GM TOP (08:24)
[2017-11-17] MEDS: WARFARIN SOD 1 MG TAB PO (17:24)
[2017-11-17] MEDS: LevoFLOXacin 500 MG TABLET PO (17:24)
[2017-11-17] MEDS: SIMVASTATIN 10 MG TAB PO (20:41)
[2017-11-18] MEDS: FUROSEMIDE 100 MG/10 ML VIAL (J1940) IV ×2 (02:06→09:34)
[2017-11-18 03:56] LABS: BEDSIDE GLUCOSE 169 MG/DL (83-110)
[2017-11-18 03:56] LABS: BEDSIDE GLUCOSE 253 MG/DL (83-110)
[2017-11-18 03:56] LABS: BEDSIDE GLUCOSE 269 MG/DL (83-110)
[2017-11-18] MEDS: ACETAMINOPHEN TAB 650MG DOSE (2X325MG) PO ×2 (04:30→21:49)
[2017-11-18 07:10] LABS: HEMATOCRIT 26.8 % (42.0-52.0); HEMOGLOBIN 8.2 g/dl (14.0-18.0); MEAN CORPUSCULAR HEMOGLOBIN 27.2 pg (27.0-33.0); MEAN CORPUSCULAR HGB CONC 30.6 g/dl (32.0-36.5); PLATELET COUNT, AUTOMATED 157 10^3/uL (150-450); RED BLOOD COUNT 3.01 10^6/uL (4.30-6.10); RED CELL DISTRIBUTION WIDTH 22.3 % (11.5-14.5); WHITE BLOOD COUNT 6.9 10^3/uL (4.0-10.0)
[2017-11-18 07:23] LABS: ANION GAP 4 MEQ/L (8-16); BLOOD UREA NITROGEN 37 MG/DL (7-18); CALCIUM LEVEL 8.6 MG/DL (8.8-10.2); CARBON DIOXIDE LEVEL 35 MEQ/L (21-32); CHLORIDE LEVEL 103 MEQ/L (98-107); CREATININE FOR GFR 1.38 MG/DL (0.70-1.30); GLOMERULAR FILTRATION RATE 53.1 (>42); GLUCOSE, FASTING 135 MG/DL (70-100); POTASSIUM SERUM 3.5 MEQ/L (3.5-5.1); SODIUM LEVEL 142 MEQ/L (136-145)
[2017-11-18] MEDS: HumaLOG INSULIN (NovoLOG) PER UNIT SC ×4 (07:30→21:00)
[2017-11-18] MEDS: METOPROLOL SUCC *XL* 25MG TAB (TopROL *XL*) PO (09:00)
[2017-11-18] MEDS: SANTYL OINT 30GM TOP (09:00)
[2017-11-18] MEDS: DIGOXIN 0.125 MG TAB PO (09:32)
[2017-11-18] MEDS: SERTRALINE 100 MG TAB PO (09:32)
[2017-11-18] MEDS: VITAMIN D 1,000 INTERNATIONAL UNITS TABLET PO (09:32)
[2017-11-18] MEDS: MULTIVITAMINS/MINERALS THERAP 1 TAB PO (09:32)
[2017-11-18] MEDS: POTASSIUM CHLORIDE 10 MEQ SR TABLET PO ×3 (09:32→21:48)
[2017-11-18] MEDS: FERROUS SULFATE 325MG TAB PO (09:32)
[2017-11-18] MEDS: LEVEMIR (INSULIN DETEMIR) 1 UNITS/0.01ML SC ×2 (09:33→21:48)
[2017-11-18] MEDS: SODIUM CHLORIDE NASAL 0.65% SPRAY BTL (OCEAN) ×2 (09:33→21:50)
[2017-11-18] MEDS: NYSTATIN 100,000 UNITS/GM TOPICAL PWD 15 GM TOP ×2 (09:33→21:51)
[2017-11-18] MEDS: EUCERIN 120GM CREAM TOP ×2 (09:33→21:50)
[2017-11-18 11:12] LABS: FERRITIN 60 NG/ML (26-388); IRON (FE) 37 UG/DL (65-175); PERCENT SATURATION 14.1 % (19.7-50.0); TOTAL IRON BINDING CAPACITY 262 UG/DL (250-450)
[2017-11-18] MEDS: DARBEPOETIN 300 MCG/0.6 ML *NON-DIALYSIS* SYRINGE (J0881) SC (13:36)
[2017-11-18] MEDS: TORSEMIDE 100 MG TAB PO (17:43)
[2017-11-18] MEDS: WARFARIN SOD 1 MG TAB PO (17:43)
[2017-11-18] MEDS: LevoFLOXacin 500 MG TABLET PO (17:43)
[2017-11-18] MEDS: SIMVASTATIN 10 MG TAB PO (21:48)
[2017-11-19 03:12] LABS: BEDSIDE GLUCOSE 194 MG/DL (83-110)
[2017-11-19 03:12] LABS: BEDSIDE GLUCOSE 208 MG/DL (83-110)
[2017-11-19 03:12] LABS: BEDSIDE GLUCOSE 262 MG/DL (83-110)
[2017-11-19 07:46] LABS: ANION GAP 5 MEQ/L (8-16); BLOOD UREA NITROGEN 37 MG/DL (7-18); CALCIUM LEVEL 8.7 MG/DL (8.8-10.2); CARBON DIOXIDE LEVEL 34 MEQ/L (21-32); CHLORIDE LEVEL 105 MEQ/L (98-107); CREATININE FOR GFR 1.36 MG/DL (0.70-1.30); GLUCOSE, FASTING 149 MG/DL (70-100); POTASSIUM SERUM 3.7 MEQ/L (3.5-5.1); SODIUM LEVEL 144 MEQ/L (136-145)
[2017-11-19] MEDS: SERTRALINE 100 MG TAB PO (08:01)
[2017-11-19] MEDS: VITAMIN D 1,000 INTERNATIONAL UNITS TABLET PO (08:01)
[2017-11-19] MEDS: TORSEMIDE 100 MG TAB PO ×2 (08:02→18:19)
[2017-11-19] MEDS: DIGOXIN 0.125 MG TAB PO (08:02)
[2017-11-19] MEDS: FERROUS SULFATE 325MG TAB PO (08:02)
[2017-11-19] MEDS: METOPROLOL SUCC *XL* 25MG TAB (TopROL *XL*) PO (08:02)
[2017-11-19] MEDS: MULTIVITAMINS/MINERALS THERAP 1 TAB PO (08:03)
[2017-11-19] MEDS: HumaLOG INSULIN (NovoLOG) PER UNIT SC ×4 (08:03→21:58)
[2017-11-19] MEDS: ACETAMINOPHEN TAB 650MG DOSE (2X325MG) PO ×3 (08:03→22:30)
[2017-11-19] MEDS: POTASSIUM CHLORIDE 10 MEQ SR TABLET PO ×3 (08:03→21:57)
[2017-11-19] MEDS: EUCERIN 120GM CREAM TOP ×2 (08:04→21:00)
[2017-11-19] MEDS: NYSTATIN 100,000 UNITS/GM TOPICAL PWD 15 GM TOP ×2 (08:04→21:58)
[2017-11-19] MEDS: LEVEMIR (INSULIN DETEMIR) 1 UNITS/0.01ML SC ×2 (08:04→21:58)
[2017-11-19] MEDS: SODIUM CHLORIDE NASAL 0.65% SPRAY BTL (OCEAN) ×2 (08:04→21:58)
[2017-11-19] MEDS: SANTYL OINT 30GM TOP (08:05)
[2017-11-19 08:50] LABS: HEMATOCRIT 27.4 % (42.0-52.0); HEMOGLOBIN 8.3 g/dl (14.0-18.0); MEAN CORPUSCULAR HGB CONC 30.3 g/dl (32.0-36.5); MEAN CORPUSCULAR VOLUME 89.3 fl (80.0-96.0); PLATELET COUNT, AUTOMATED 162 10^3/uL (150-450); RED BLOOD COUNT 3.07 10^6/uL (4.30-6.10); RED CELL DISTRIBUTION WIDTH 22.6 % (11.5-14.5); WHITE BLOOD COUNT 7.2 10^3/uL (4.0-10.0)
[2017-11-19] MEDS: LevoFLOXacin 500 MG TABLET PO (18:18)
[2017-11-19] MEDS: WARFARIN SOD 1 MG TAB PO (18:19)
[2017-11-19] MEDS: SIMVASTATIN 10 MG TAB PO (21:57)
[2017-11-20] MEDS: ACETAMINOPHEN TAB 650MG DOSE (2X325MG) PO ×3 (04:01→21:22)
[2017-11-20 05:49] LABS: BEDSIDE GLUCOSE 304 MG/DL (83-110)
[2017-11-20 05:49] LABS: BEDSIDE GLUCOSE 266 MG/DL (83-110)
[2017-11-20 05:49] LABS: BEDSIDE GLUCOSE 195 MG/DL (83-110)
[2017-11-20 07:04] LABS: ANION GAP 4 MEQ/L (8-16); BLOOD UREA NITROGEN 40 MG/DL (7-18); CALCIUM LEVEL 8.5 MG/DL (8.8-10.2); CARBON DIOXIDE LEVEL 36 MEQ/L (21-32); CHLORIDE LEVEL 103 MEQ/L (98-107); CREATININE FOR GFR 1.35 MG/DL (0.70-1.30); GLOMERULAR FILTRATION RATE 54.4 (>42); GLUCOSE, FASTING 140 MG/DL (70-100); POTASSIUM SERUM 3.4 MEQ/L (3.5-5.1); SODIUM LEVEL 143 MEQ/L (136-145)
[2017-11-20] MEDS: LEVEMIR (INSULIN DETEMIR) 1 UNITS/0.01ML SC ×2 (08:12→21:23)
[2017-11-20] MEDS: HumaLOG INSULIN (NovoLOG) PER UNIT SC ×4 (08:13→21:00)
[2017-11-20] MEDS: VITAMIN D 1,000 INTERNATIONAL UNITS TABLET PO (08:13)
[2017-11-20] MEDS: TORSEMIDE 100 MG TAB PO ×2 (08:14→17:24)
[2017-11-20] MEDS: MULTIVITAMINS/MINERALS THERAP 1 TAB PO (08:14)
[2017-11-20] MEDS: POTASSIUM CHLORIDE 10 MEQ SR TABLET PO ×3 (08:16→21:22)
[2017-11-20] MEDS: FERROUS SULFATE 325MG TAB PO (08:16)
[2017-11-20] MEDS: SERTRALINE 100 MG TAB PO (08:16)
[2017-11-20] MEDS: DIGOXIN 0.125 MG TAB PO (08:17)
[2017-11-20] MEDS: METOPROLOL SUCC *XL* 25MG TAB (TopROL *XL*) PO (08:17)
[2017-11-20] MEDS: SODIUM CHLORIDE NASAL 0.65% SPRAY BTL (OCEAN) ×2 (08:18→21:23)
[2017-11-20] MEDS: SANTYL OINT 30GM TOP (08:19)
[2017-11-20] MEDS: EUCERIN 120GM CREAM TOP ×2 (08:19→21:00)
[2017-11-20] MEDS: NYSTATIN 100,000 UNITS/GM TOPICAL PWD 15 GM TOP ×2 (08:19→21:23)
[2017-11-20 09:37] LABS: HEMATOCRIT 27.8 % (42.0-52.0); HEMOGLOBIN 8.5 g/dl (14.0-18.0); MEAN CORPUSCULAR HEMOGLOBIN 27.1 pg (27.0-33.0); MEAN CORPUSCULAR HGB CONC 30.6 g/dl (32.0-36.5); MEAN CORPUSCULAR VOLUME 88.5 fl (80.0-96.0); PLATELET COUNT, AUTOMATED 150 10^3/uL (150-450); RED BLOOD COUNT 3.14 10^6/uL (4.30-6.10); RED CELL DISTRIBUTION WIDTH 22.4 % (11.5-14.5); WHITE BLOOD COUNT 7.2 10^3/uL (4.0-10.0)
[2017-11-20] MEDS: LevoFLOXacin 500 MG TABLET PO (17:24)
[2017-11-20] MEDS: WARFARIN SOD 1 MG TAB PO (17:25)
[2017-11-20 21:19] LABS: BEDSIDE GLUCOSE 227 MG/DL (83-110)
[2017-11-20] MEDS: SIMVASTATIN 10 MG TAB PO (21:22)
[2017-11-21] MEDS: ACETAMINOPHEN TAB 650MG DOSE (2X325MG) PO ×2 (04:04→20:21)
[2017-11-21 07:06] LABS: HEMATOCRIT 27.5 % (42.0-52.0); HEMOGLOBIN 8.5 g/dl (14.0-18.0); MEAN CORPUSCULAR HGB CONC 30.9 g/dl (32.0-36.5); MEAN CORPUSCULAR VOLUME 87.3 fl (80.0-96.0); PLATELET COUNT, AUTOMATED 160 10^3/uL (150-450); RED BLOOD COUNT 3.15 10^6/uL (4.30-6.10); RED CELL DISTRIBUTION WIDTH 22.4 % (11.5-14.5); WHITE BLOOD COUNT 6.5 10^3/uL (4.0-10.0)
[2017-11-21 07:24] LABS: ANION GAP 5 MEQ/L (8-16); BLOOD UREA NITROGEN 41 MG/DL (7-18); CALCIUM LEVEL 8.7 MG/DL (8.8-10.2); CARBON DIOXIDE LEVEL 35 MEQ/L (21-32); CHLORIDE LEVEL 103 MEQ/L (98-107); CREATININE FOR GFR 1.39 MG/DL (0.70-1.30); GLOMERULAR FILTRATION RATE 52.6 (>42); GLUCOSE, FASTING 156 MG/DL (70-100); POTASSIUM SERUM 3.7 MEQ/L (3.5-5.1); SODIUM LEVEL 143 MEQ/L (136-145)
[2017-11-21] MEDS: HumaLOG INSULIN (NovoLOG) PER UNIT SC ×4 (08:28→20:19)
[2017-11-21] MEDS: LEVEMIR (INSULIN DETEMIR) 1 UNITS/0.01ML SC ×2 (08:29→20:19)
[2017-11-21] MEDS: VITAMIN D 1,000 INTERNATIONAL UNITS TABLET PO (08:31)
[2017-11-21] MEDS: SERTRALINE 100 MG TAB PO (08:31)
[2017-11-21] MEDS: FERROUS SULFATE 325MG TAB PO (08:33)
[2017-11-21] MEDS: POTASSIUM CHLORIDE 10 MEQ SR TABLET PO ×3 (08:33→20:19)
[2017-11-21] MEDS: MULTIVITAMINS/MINERALS THERAP 1 TAB PO (08:33)
[2017-11-21] MEDS: TORSEMIDE 100 MG TAB PO ×2 (08:35→16:59)
[2017-11-21] MEDS: DIGOXIN 0.125 MG TAB PO (08:35)
[2017-11-21] MEDS: METOPROLOL SUCC *XL* 25MG TAB (TopROL *XL*) PO (08:36)
[2017-11-21] MEDS: EUCERIN 120GM CREAM TOP ×2 (08:38→20:20)
[2017-11-21] MEDS: SODIUM CHLORIDE NASAL 0.65% SPRAY BTL (OCEAN) ×2 (08:38→20:20)
[2017-11-21] MEDS: NYSTATIN 100,000 UNITS/GM TOPICAL PWD 15 GM TOP ×2 (08:39→20:21)
[2017-11-21] MEDS: SANTYL OINT 30GM TOP (08:40)
[2017-11-21] MEDS: WARFARIN SOD 1 MG TAB PO (16:59)
[2017-11-21] MEDS: LevoFLOXacin 500 MG TABLET PO (17:03)
[2017-11-21] MEDS: SIMVASTATIN 10 MG TAB PO (20:19)
[2017-11-22] MEDS: ACETAMINOPHEN TAB 650MG DOSE (2X325MG) PO ×2 (05:06→19:47)
[2017-11-22 05:55] LABS: HEMATOCRIT 26.9 % (42.0-52.0); HEMOGLOBIN 8.1 g/dl (14.0-18.0); MEAN CORPUSCULAR HEMOGLOBIN 26.8 pg (27.0-33.0); MEAN CORPUSCULAR HGB CONC 30.1 g/dl (32.0-36.5); MEAN CORPUSCULAR VOLUME 89.1 fl (80.0-96.0); PLATELET COUNT, AUTOMATED 135 10^3/uL (150-450); RED BLOOD COUNT 3.02 10^6/uL (4.30-6.10); RED CELL DISTRIBUTION WIDTH 22.3 % (11.5-14.5); WHITE BLOOD COUNT 6.2 10^3/uL (4.0-10.0)
[2017-11-22 06:20] LABS: ANION GAP 5 MEQ/L (8-16); BLOOD UREA NITROGEN 38 MG/DL (7-18); CALCIUM LEVEL 8.4 MG/DL (8.8-10.2); CARBON DIOXIDE LEVEL 35 MEQ/L (21-32); CHLORIDE LEVEL 103 MEQ/L (98-107); CREATININE FOR GFR 1.39 MG/DL (0.70-1.30); GLOMERULAR FILTRATION RATE 52.6 (>42); GLUCOSE, FASTING 151 MG/DL (70-100); POTASSIUM SERUM 3.9 MEQ/L (3.5-5.1); SODIUM LEVEL 143 MEQ/L (136-145)
[2017-11-22] MEDS: HumaLOG INSULIN (NovoLOG) PER UNIT SC ×4 (08:58→22:00)
[2017-11-22] MEDS: SANTYL OINT 30GM TOP (09:00)
[2017-11-22] MEDS: METOPROLOL SUCC *XL* 25MG TAB (TopROL *XL*) PO (09:00)
[2017-11-22] MEDS: TORSEMIDE 100 MG TAB PO ×2 (09:00→17:48)
[2017-11-22] MEDS: LEVEMIR (INSULIN DETEMIR) 1 UNITS/0.01ML SC ×2 (10:24→19:49)
[2017-11-22] MEDS: VITAMIN D 1,000 INTERNATIONAL UNITS TABLET PO (10:25)
[2017-11-22] MEDS: SERTRALINE 100 MG TAB PO (10:25)
[2017-11-22] MEDS: DIGOXIN 0.125 MG TAB PO (10:27)
[2017-11-22] MEDS: MULTIVITAMINS/MINERALS THERAP 1 TAB PO (10:27)
[2017-11-22] MEDS: POTASSIUM CHLORIDE 10 MEQ SR TABLET PO ×3 (10:27→19:48)
[2017-11-22] MEDS: FERROUS SULFATE 325MG TAB PO (10:28)
[2017-11-22] MEDS: EUCERIN 120GM CREAM TOP ×2 (10:29→21:00)
[2017-11-22] MEDS: SODIUM CHLORIDE NASAL 0.65% SPRAY BTL (OCEAN) ×2 (10:29→21:00)
[2017-11-22] MEDS: NYSTATIN 100,000 UNITS/GM TOPICAL PWD 15 GM TOP ×2 (10:30→21:40)
[2017-11-22] MEDS: WARFARIN SOD 1 MG TAB PO (17:48)
[2017-11-22] MEDS: LevoFLOXacin 500 MG TABLET PO (17:48)
[2017-11-22] MEDS: SIMVASTATIN 10 MG TAB PO (19:48)
[2017-11-23 02:19] LABS: BEDSIDE GLUCOSE 208 MG/DL (83-110)
[2017-11-23 02:19] LABS: BEDSIDE GLUCOSE 203 MG/DL (83-110)
[2017-11-23 02:19] LABS: BEDSIDE GLUCOSE 173 MG/DL (83-110)
[2017-11-23 02:19] LABS: BEDSIDE GLUCOSE 255 MG/DL (83-110)
[2017-11-23 02:19] LABS: BEDSIDE GLUCOSE 202 MG/DL (83-110)
[2017-11-23 02:19] LABS: BEDSIDE GLUCOSE 227 MG/DL (83-110)
[2017-11-23 02:19] LABS: BEDSIDE GLUCOSE 248 MG/DL (83-110)
[2017-11-23 02:19] LABS: BEDSIDE GLUCOSE 187 MG/DL (83-110)
[2017-11-23 05:57] LABS: HEMATOCRIT 27.5 % (42.0-52.0); HEMOGLOBIN 8.4 g/dl (14.0-18.0); MEAN CORPUSCULAR HEMOGLOBIN 26.7 pg (27.0-33.0); MEAN CORPUSCULAR HGB CONC 30.5 g/dl (32.0-36.5); MEAN CORPUSCULAR VOLUME 87.3 fl (80.0-96.0); PLATELET COUNT, AUTOMATED 151 10^3/uL (150-450); RED BLOOD COUNT 3.15 10^6/uL (4.30-6.10); RED CELL DISTRIBUTION WIDTH 22.8 % (11.5-14.5); WHITE BLOOD COUNT 6.6 10^3/uL (4.0-10.0)
[2017-11-23 06:14] LABS: ANION GAP 4 MEQ/L (8-16); BLOOD UREA NITROGEN 38 MG/DL (7-18); CALCIUM LEVEL 8.9 MG/DL (8.8-10.2); CARBON DIOXIDE LEVEL 35 MEQ/L (21-32); CHLORIDE LEVEL 104 MEQ/L (98-107); CREATININE FOR GFR 1.31 MG/DL (0.70-1.30); GLOMERULAR FILTRATION RATE 56.3 (>42); GLUCOSE, FASTING 108 MG/DL (70-100); POTASSIUM SERUM 3.9 MEQ/L (3.5-5.1); SODIUM LEVEL 143 MEQ/L (136-145)
[2017-11-23] MEDS: HumaLOG INSULIN (NovoLOG) PER UNIT SC ×4 (07:30→20:12)
[2017-11-23] MEDS: METOPROLOL SUCC *XL* 25MG TAB (TopROL *XL*) PO (09:00)
[2017-11-23] MEDS: SERTRALINE 100 MG TAB PO (09:04)
[2017-11-23] MEDS: LEVEMIR (INSULIN DETEMIR) 1 UNITS/0.01ML SC ×2 (09:04→21:00)
[2017-11-23] MEDS: TORSEMIDE 100 MG TAB PO ×2 (09:04→17:48)
[2017-11-23] MEDS: POTASSIUM CHLORIDE 10 MEQ SR TABLET PO ×3 (09:04→21:12)
[2017-11-23] MEDS: DIGOXIN 0.125 MG TAB PO (09:04)
[2017-11-23] MEDS: ACETAMINOPHEN TAB 650MG DOSE (2X325MG) PO ×2 (09:05→21:24)
[2017-11-23] MEDS: FERROUS SULFATE 325MG TAB PO (09:05)
[2017-11-23] MEDS: MULTIVITAMINS/MINERALS THERAP 1 TAB PO (09:05)
[2017-11-23] MEDS: VITAMIN D 1,000 INTERNATIONAL UNITS TABLET PO (09:05)
[2017-11-23] MEDS: NYSTATIN 100,000 UNITS/GM TOPICAL PWD 15 GM TOP ×2 (09:06→21:14)
[2017-11-23] MEDS: EUCERIN 120GM CREAM TOP ×2 (09:06→21:13)
[2017-11-23] MEDS: SANTYL OINT 30GM TOP (09:06)
[2017-11-23] MEDS: SODIUM CHLORIDE NASAL 0.65% SPRAY BTL (OCEAN) ×2 (09:06→21:14)
[2017-11-23 10:11] LABS: ALBUMIN 2.1 GM/DL (3.2-5.2)
[2017-11-23] MEDS: LevoFLOXacin 500 MG TABLET PO (17:49)
[2017-11-23] MEDS: WARFARIN SOD 1 MG TAB PO (17:49)
[2017-11-23] MEDS: SIMVASTATIN 10 MG TAB PO (21:12)
[2017-11-24] MEDS: ACETAMINOPHEN TAB 650MG DOSE (2X325MG) PO ×3 (05:07→22:46)
[2017-11-24 08:31] LABS: HEMATOCRIT 28.2 % (42.0-52.0); HEMOGLOBIN 8.4 g/dl (14.0-18.0); MEAN CORPUSCULAR HEMOGLOBIN 26.6 pg (27.0-33.0); MEAN CORPUSCULAR HGB CONC 29.8 g/dl (32.0-36.5); MEAN CORPUSCULAR VOLUME 89.2 fl (80.0-96.0); PLATELET COUNT, AUTOMATED 141 10^3/uL (150-450); RED BLOOD COUNT 3.16 10^6/uL (4.30-6.10); RED CELL DISTRIBUTION WIDTH 22.6 % (11.5-14.5); WHITE BLOOD COUNT 6.1 10^3/uL (4.0-10.0)
[2017-11-24 08:52] LABS: ANION GAP 7 MEQ/L (8-16); BLOOD UREA NITROGEN 39 MG/DL (7-18); CALCIUM LEVEL 8.6 MG/DL (8.8-10.2); CARBON DIOXIDE LEVEL 31 MEQ/L (21-32); CHLORIDE LEVEL 105 MEQ/L (98-107); CREATININE FOR GFR 1.44 MG/DL (0.70-1.30); GLOMERULAR FILTRATION RATE 50.5 (>42); GLUCOSE, FASTING 154 MG/DL (70-100); POTASSIUM SERUM 3.9 MEQ/L (3.5-5.1); SODIUM LEVEL 143 MEQ/L (136-145)
[2017-11-24] MEDS: METOPROLOL SUCC *XL* 25MG TAB (TopROL *XL*) PO (09:15)
[2017-11-24] MEDS: HumaLOG INSULIN (NovoLOG) PER UNIT SC ×5 (09:15→20:15)
[2017-11-24] MEDS: MULTIVITAMINS/MINERALS THERAP 1 TAB PO (09:15)
[2017-11-24] MEDS: LEVEMIR (INSULIN DETEMIR) 1 UNITS/0.01ML SC ×2 (09:15→22:48)
[2017-11-24] MEDS: FERROUS SULFATE 325MG TAB PO (09:15)
[2017-11-24] MEDS: DIGOXIN 0.125 MG TAB PO (09:16)
[2017-11-24] MEDS: TORSEMIDE 100 MG TAB PO ×2 (09:17→17:51)
[2017-11-24] MEDS: SERTRALINE 100 MG TAB PO (09:17)
[2017-11-24] MEDS: VITAMIN D 1,000 INTERNATIONAL UNITS TABLET PO (09:17)
[2017-11-24] MEDS: POTASSIUM CHLORIDE 10 MEQ SR TABLET PO ×3 (09:17→22:48)
[2017-11-24] MEDS: NYSTATIN 100,000 UNITS/GM TOPICAL PWD 15 GM TOP ×2 (09:18→22:56)
[2017-11-24] MEDS: SODIUM CHLORIDE NASAL 0.65% SPRAY BTL (OCEAN) ×2 (09:18→22:57)
[2017-11-24] MEDS: EUCERIN 120GM CREAM TOP ×2 (09:23→22:53)
[2017-11-24] MEDS: SANTYL OINT 30GM TOP (09:23)
[2017-11-24 11:39] LABS: BEDSIDE GLUCOSE 177 MG/DL (83-110)
[2017-11-24 11:39] LABS: BEDSIDE GLUCOSE 223 MG/DL (83-110)
[2017-11-24 11:39] LABS: BEDSIDE GLUCOSE 191 MG/DL (83-110)
[2017-11-24 11:39] LABS: BEDSIDE GLUCOSE 216 MG/DL (83-110)
[2017-11-24] MEDS: IRON DEXTRAN INJ 25 MG in NS 50 ML IV (12:19)
[2017-11-24] MEDS: IRON DEXTRAN INJ 75 MG in NS 100 ML IV (14:36)
[2017-11-24] MEDS: LevoFLOXacin 500 MG TABLET PO (17:50)
[2017-11-24] MEDS: WARFARIN SOD 1 MG TAB PO (17:50)
[2017-11-24] MEDS: SIMVASTATIN 10 MG TAB PO (22:47)
[2017-11-25 07:03] LABS: HEMATOCRIT 28.2 % (42.0-52.0); HEMOGLOBIN 8.4 g/dl (14.0-18.0); MEAN CORPUSCULAR HEMOGLOBIN 26.3 pg (27.0-33.0); MEAN CORPUSCULAR HGB CONC 29.8 g/dl (32.0-36.5); MEAN CORPUSCULAR VOLUME 88.4 fl (80.0-96.0); PLATELET COUNT, AUTOMATED 142 10^3/uL (150-450); RED BLOOD COUNT 3.19 10^6/uL (4.30-6.10); RED CELL DISTRIBUTION WIDTH 23.2 % (11.5-14.5); WHITE BLOOD COUNT 6.2 10^3/uL (4.0-10.0)
[2017-11-25 07:20] LABS: ANION GAP 6 MEQ/L (8-16); BLOOD UREA NITROGEN 36 MG/DL (7-18); CALCIUM LEVEL 8.4 MG/DL (8.8-10.2); CARBON DIOXIDE LEVEL 33 MEQ/L (21-32); CHLORIDE LEVEL 105 MEQ/L (98-107); CREATININE FOR GFR 1.44 MG/DL (0.70-1.30); GLOMERULAR FILTRATION RATE 50.5 (>42); GLUCOSE, FASTING 155 MG/DL (70-100); POTASSIUM SERUM 3.8 MEQ/L (3.5-5.1); SODIUM LEVEL 144 MEQ/L (136-145)
[2017-11-25] MEDS: SODIUM CHLORIDE NASAL 0.65% SPRAY BTL (OCEAN) (09:00)
[2017-11-25] MEDS: VITAMIN D 1,000 INTERNATIONAL UNITS TABLET PO (09:38)
[2017-11-25] MEDS: TORSEMIDE 100 MG TAB PO (09:39)
[2017-11-25] MEDS: DIGOXIN 0.125 MG TAB PO (09:40)
[2017-11-25] MEDS: MULTIVITAMINS/MINERALS THERAP 1 TAB PO (09:40)
[2017-11-25] MEDS: FERROUS SULFATE 325MG TAB PO (09:41)
[2017-11-25] MEDS: POTASSIUM CHLORIDE 10 MEQ SR TABLET PO (09:42)
[2017-11-25] MEDS: METOPROLOL SUCC *XL* 25MG TAB (TopROL *XL*) PO (09:42)
[2017-11-25] MEDS: SERTRALINE 100 MG TAB PO (09:43)
[2017-11-25] MEDS: LEVEMIR (INSULIN DETEMIR) 1 UNITS/0.01ML SC (09:45)
[2017-11-25] MEDS: EUCERIN 120GM CREAM TOP (09:47)
[2017-11-25] MEDS: NYSTATIN 100,000 UNITS/GM TOPICAL PWD 15 GM TOP (09:49)
[2017-11-25] MEDS: HumaLOG INSULIN (NovoLOG) PER UNIT SC ×2 (10:25→12:00)
[2017-11-25] MEDS: SANTYL OINT 30GM TOP (10:26)
[2017-11-25] MEDS: ACETAMINOPHEN TAB 650MG DOSE (2X325MG) PO (10:31)
[2017-11-25] MEDS ORDERED: FERROUS SULFATE 325MG TAB PO (21:00)
[2017-11-26 04:34] LABS: BEDSIDE GLUCOSE 162 MG/DL (83-110)
[2017-11-26 04:34] LABS: BEDSIDE GLUCOSE 215 MG/DL (83-110)
[2017-11-26 04:34] LABS: BEDSIDE GLUCOSE 234 MG/DL (83-110)
[2017-11-26 04:34] LABS: BEDSIDE GLUCOSE 169 MG/DL (83-110)
[2017-11-26 04:34] LABS: BEDSIDE GLUCOSE 241 MG/DL (83-110)
== END 2017-11-25 15:05 | DRG 474 ==
LOC: M MS5PR 17:14
PROC: 0KBV0ZZ Excision of Right Foot Muscle, Open Approach (ICD-10-PCS; 2017-11-02 10:39)
PROC: 0Y6D0Z3 Detachment at Left Upper Leg, Low, Open Approach (ICD-10-PCS; principal; 2017-11-02 11:40)
PROC: 30253N1 (ICD-10-PCS; 2017-11-02 11:40)
DX: T87.81 Dehiscence of amputation stump (principal); I50.33 Acute on chronic diastolic (congestive) heart failure; N17.9 Acute kidney failure, unspecified; D62 Acute posthemorrhagic anemia; I13.0 Hypertensive heart and chronic kidney disease with heart failure and stage 1 through stage 4 chronic kidney disease, or unspecified chronic kidney disease; E46 Unspecified protein-calorie malnutrition; I70.262 Atherosclerosis of native arteries of extremities with gangrene, left leg; E11.22 Type 2 diabetes mellitus with diabetic chronic kidney disease; I70.235 Atherosclerosis of native arteries of right leg with ulceration of other part of foot; I48.91 Unspecified atrial fibrillation; N18.3 Chronic kidney disease, stage 3 (moderate); E78.00 Pure hypercholesterolemia, unspecified; L89.152 Pressure ulcer of sacral region, stage 2; E87.6 Hypokalemia; E11.649 Type 2 diabetes mellitus with hypoglycemia without coma; R33.9 Retention of urine, unspecified; E11.51 Type 2 diabetes mellitus with diabetic peripheral angiopathy without gangrene; N40.1 Benign prostatic hyperplasia with lower urinary tract symptoms; L89.610 Pressure ulcer of right heel, unstageable; L89.159 Pressure ulcer of sacral region, unspecified stage; D50.9 Iron deficiency anemia, unspecified; D63.1 Anemia in chronic kidney disease; L89.622 Pressure ulcer of left heel, stage 2; E66.01 Morbid (severe) obesity due to excess calories; E78.5 Hyperlipidemia, unspecified; E83.51 Hypocalcemia; F32.9 Major depressive disorder, single episode, unspecified; Z88.8 Allergy status to other drugs, medicaments and biological substances; Z79.4 Long term (current) use of insulin; Z79.01 Long term (current) use of anticoagulants; Z79.899 Other long term (current) drug therapy; Z68.39 Body mass index [BMI] 39.0-39.9, adult

== ENCOUNTER → 2017-10-30 | Outpatient (REF) | payer MEDICARE ==
[2017-10-30 15:14] LABS: PROTHROMBIN TIME 45.2 SECONDS (12.4-14.5)
== END ==
LOC: M SHH 14:52
DX: Z51.81 Encounter for therapeutic drug level monitoring (principal); Z79.01 Long term (current) use of anticoagulants

== ENCOUNTER → 2017-11-27 | Outpatient (REF) ==
[2017-11-27 08:33] LABS: BASO % 0.6 % (0.0-1.0); EOS # 0.2 10^3/uL (0.0-0.50); EOS % 3.6 % (0.0-3.0); HEMATOCRIT 29.3 % (42.0-52.0); HEMOGLOBIN 8.8 g/dl (14.0-18.0); IMMATURE GRANULOCYTE # 0.1 10^3/uL (0-0); IMMATURE GRANULOCYTE % 1.9 % (0-0); LYMPH # 0.6 10^3/uL (1.5-4.5); LYMPH % 8.4 % (24.0-44.0); MEAN CORPUSCULAR HEMOGLOBIN 27.5 pg (27.0-33.0); MEAN CORPUSCULAR VOLUME 91.6 fl (80.0-96.0); MONO # 0.7 10^3/uL (0.0-0.8); NEUTROPHILS # 5.1 10^3/uL (1.8-7.7); NEUTROPHILS % 75.5 % (36.0-66.0); PLATELET COUNT, AUTOMATED 149 10^3/uL (150-450); RED CELL DISTRIBUTION WIDTH 23.6 % (11.5-14.5); WHITE BLOOD COUNT 6.7 10^3/uL (4.0-10.0)
[2017-11-27 08:51] LABS: ANION GAP 4 MEQ/L (8-16); BLOOD UREA NITROGEN 35 MG/DL (7-18); CALCIUM LEVEL 8.5 MG/DL (8.8-10.2); CARBON DIOXIDE LEVEL 34 MEQ/L (21-32); CHLORIDE LEVEL 107 MEQ/L (98-107); CREATININE FOR GFR 1.34 MG/DL (0.70-1.30); GLOMERULAR FILTRATION RATE 54.9 (>42); GLUCOSE, FASTING 41 MG/DL (70-100); POTASSIUM SERUM 3.5 MEQ/L (3.5-5.1); SODIUM LEVEL 145 MEQ/L (136-145)
[2017-11-27 08:52] LABS: INR 1.34; PROTHROMBIN TIME 16.9 SECONDS (12.4-14.5)
== END ==
LOC: SKLAB4 11:11
DX: I48.91 Unspecified atrial fibrillation (principal); D64.9 Anemia, unspecified

== ENCOUNTER → 2017-12-01 | Outpatient (REF) ==
[2017-12-01 12:11] LABS: BASO # 0.1 10^3/uL (0.0-0.2); BASO % 0.8 % (0.0-1.0); EOS # 0.3 10^3/uL (0.0-0.50); EOS % 4.3 % (0.0-3.0); HEMATOCRIT 28.8 % (42.0-52.0); HEMOGLOBIN 8.6 g/dl (14.0-18.0); IMMATURE GRANULOCYTE # 0.1 10^3/uL (0-0); IMMATURE GRANULOCYTE % 2.1 % (0-0); LYMPH # 0.5 10^3/uL (1.5-4.5); MEAN CORPUSCULAR HEMOGLOBIN 27.6 pg (27.0-33.0); MEAN CORPUSCULAR HGB CONC 29.9 g/dl (32.0-36.5); MEAN CORPUSCULAR VOLUME 92.3 fl (80.0-96.0); MONO # 0.6 10^3/uL (0.0-0.8); MONO % 9.5 % (0.0-5.0); NEUTROPHILS # 4.9 10^3/uL (1.8-7.7); NEUTROPHILS % 75.3 % (36.0-66.0); PLATELET COUNT, AUTOMATED 143 10^3/uL (150-450); RED BLOOD COUNT 3.12 10^6/uL (4.30-6.10); RED CELL DISTRIBUTION WIDTH 23.4 % (11.5-14.5); WHITE BLOOD COUNT 6.5 10^3/uL (4.0-10.0)
[2017-12-01 12:35] LABS: INR 1.55
[2017-12-01 12:54] LABS: ANION GAP 4 MEQ/L (8-16); BLOOD UREA NITROGEN 49 MG/DL (7-18); CALCIUM LEVEL 8.4 MG/DL (8.8-10.2); CARBON DIOXIDE LEVEL 30 MEQ/L (21-32); CHLORIDE LEVEL 106 MEQ/L (98-107); CREATININE FOR GFR 1.21 MG/DL (0.70-1.30); GLOMERULAR FILTRATION RATE > 60.0 (>42); GLUCOSE, FASTING 159 MG/DL (70-100); POTASSIUM SERUM 4.8 MEQ/L (3.5-5.1); SODIUM LEVEL 140 MEQ/L (136-145)
== END ==
LOC: SKLAB4 09:33
DX: D64.9 Anemia, unspecified (principal); I48.91 Unspecified atrial fibrillation

== ENCOUNTER → 2017-12-04 | Outpatient (REF) ==
[2017-12-04 09:25] LABS: INR 2.04; PROTHROMBIN TIME 23.7 SECONDS (12.4-14.5)
== END ==
LOC: SKLAB4 10:09
DX: I48.91 Unspecified atrial fibrillation (principal)

== ENCOUNTER → 2017-12-08 | Outpatient (REF) ==
[2017-12-08 09:18] LABS: BASO % 0.8 % (0.0-1.0); EOS # 0.3 10^3/uL (0.0-0.50); EOS % 6.6 % (0.0-3.0); HEMATOCRIT 29.5 % (42.0-52.0); HEMOGLOBIN 8.7 g/dl (14.0-18.0); IMMATURE GRANULOCYTE % 1.5 % (0-3.0); LYMPH # 0.5 10^3/uL (1.5-4.5); LYMPH % 9.6 % (24.0-44.0); MEAN CORPUSCULAR HEMOGLOBIN 27.1 pg (27.0-33.0); MEAN CORPUSCULAR HGB CONC 29.5 g/dl (32.0-36.5); MEAN CORPUSCULAR VOLUME 91.9 fl (80.0-96.0); MONO # 0.6 10^3/uL (0.0-0.8); MONO % 10.8 % (0.0-5.0); NEUTROPHILS # 3.7 10^3/uL (1.8-7.7); NEUTROPHILS % 70.7 % (36.0-66.0); PLATELET COUNT, AUTOMATED 128 10^3/uL (150-450); RED BLOOD COUNT 3.21 10^6/uL (4.30-6.10); RED CELL DISTRIBUTION WIDTH 22.4 % (11.5-14.5); WHITE BLOOD COUNT 5.2 10^3/uL (4.0-10.0)
[2017-12-08 09:29] LABS: INR 2.82; PROTHROMBIN TIME 30.9 SECONDS (12.4-14.5)
[2017-12-08 10:02] LABS: ALBUMIN 2.3 GM/DL (3.2-5.2); ANION GAP 7 MEQ/L (8-16); BLOOD UREA NITROGEN 58 MG/DL (7-18); CALCIUM LEVEL 8.8 MG/DL (8.8-10.2); CARBON DIOXIDE LEVEL 31 MEQ/L (21-32); CHLORIDE LEVEL 107 MEQ/L (98-107); CREATININE FOR GFR 1.07 MG/DL (0.70-1.30); GLOMERULAR FILTRATION RATE > 60.0 (>42); GLUCOSE, FASTING 67 MG/DL (70-100); MAGNESIUM LEVEL 2.3 MG/DL (1.8-2.4); POTASSIUM SERUM 4.3 MEQ/L (3.5-5.1); SODIUM LEVEL 145 MEQ/L (136-145)
== END ==
LOC: SKLAB4 11:16
DX: D64.9 Anemia, unspecified (principal); I48.91 Unspecified atrial fibrillation; N18.9 Chronic kidney disease, unspecified